=== PATIENT | male | born 1940 | race Caucasian/White ===

== ENCOUNTER 2021-01-04 08:01 | Outpatient (REF) | payer MEDICARE, SELFPAY ==
[2021-01-04 10:29] LABS: MANUAL DIFF FLAG NO
[2021-01-04 10:39] LABS: Basophils Percent Auto 0.6 % (0-2); Eosinophils Absolute Auto 0.1 X10*3/uL (0.0-0.4); Eosinophils Percent Auto 1.6 % (0-4); Hematocrit 42.1 % (42-52); Hemoglobin 14.4 g/dl (14.0-18.0); Imm Gran Abs Auto 0.02 X10*3/uL (0.00-0.03); Imm Gran Pct Auto 0.3 % (0.0-0.4); Lymphocytes Absolute Auto 1.2 X10*3/uL (1.2-4.9); Lymphocytes Percent Auto 17.2 % (20-40); Mean Corpuscular HGB Conc 34.2 g/dl (31.0-36.0); Mean Corpuscular Hemoglobin 29.6 pg (27.0-33.0); Mean Corpuscular Volume 86.6 fL (80-98); Mean Platelet Volume 10.5 fL (9.4-12.4); Monocytes Absolute Auto 0.6 X10*3/uL (0.1-1.2); Monocytes Percent Auto 8.4 % (2-11); Neutrophils Absolute Auto 4.8 X10*3/uL (2.0-8.3); Neutrophils Percent Auto 71.9 % (45-73); Platelet Count 208 X10*3/uL (160-400); Red Blood Count 4.86 X10*6/uL (4.60-5.80); Red Cell Distribution Width 13.1 % (11.0-16.0); White Blood Count 6.7 X10*3/uL (4.8-10.8)
[2021-01-04 10:51] LABS: Glucose Urine UA NEG (NEG); Leukocyte Esterase Urine 1+ (NEG); Nitrite Urine NEG (NEG); PH 6.5 (5.0-8.0); UACC Culture Trigger YES; Urine Blood NEG (NEG); Urine Ketones NEG (NEG); Urine Protein NEG (NEG-TRACE)
[2021-01-04 10:52] LABS: Appearance Urine CLEAR; Color Urine YELLOW
[2021-01-04 11:01] LABS: Alanine Aminotransferase 22 U/L (0-40); Albumin Level 3.8 g/dL (3.5-5.0); Alkaline Phosphatase 84 U/L (39-117); Anion Gap 10 (12-20); Aspartate Amino Transferase 19 U/L (5-37); Bilirubin Total 1.2 mg/dL (0.0-1.0); Blood Urea Nitrogen 8 mg/dL (9-16); Carbon Dioxide 26 mmol/L (22-29); Chloride 109 mmol/L (96-108); Cholesterol 120 mg/dL; Estimated Glomerular Filt Rate > 60; Glucose Fasting 130 mg/dL (60-99); HDL Cholesterol 30 mg/dL; LDL Cholesterol Calculated 65 mg/dl; Potassium 3.8 mmol/L (3.3-5.1); Sodium 141 mmol/L (135-145); Total Protein 6.1 g/dL (6.5-8.0); Triglycerides 126 mg/dL
[2021-01-04 11:02] LABS: RBC Urine 0-2 /HPF (0); Squamous Epithelial Cell Urine TRACE /LPF
[2021-01-04 11:08] LABS: TSH reflex Free T4 1.12 uIU/mL (0.32-4.0)
== END 2021-01-04 08:02 | disposition home or self-care (01) ==
LOC: HO.10HDL 08:01
PROVIDERS: Visit Provider Internal Medicine
DX: I10 Essential (primary) hypertension (principal); N40.0 Benign prostatic hyperplasia without lower urinary tract symptoms; K21.9 Gastro-esophageal reflux disease without esophagitis; J30.9 Allergic rhinitis, unspecified; E78.00 Pure hypercholesterolemia, unspecified; I25.10 Atherosclerotic heart disease of native coronary artery without angina pectoris; E66.9 Obesity, unspecified
CPT/HCPCS: 36415; 80053; 80061; 81001; 84443; 85025; 87086

== ENCOUNTER 2021-04-05 08:13 | Outpatient (REF) | payer MEDICARE, SELFPAY ==
[2021-04-05 10:18] LABS: MANUAL DIFF FLAG NO
[2021-04-05 10:23] LABS: Basophils Percent Auto 0.5 % (0-2); Eosinophils Absolute Auto 0.1 X10*3/uL (0.0-0.4); Hemoglobin 14.2 g/dl (14.0-18.0); Imm Gran Abs Auto 0.04 X10*3/uL (0.00-0.03); Imm Gran Pct Auto 0.6 % (0.0-0.4); Lymphocytes Absolute Auto 1.1 X10*3/uL (1.2-4.9); Lymphocytes Percent Auto 17.3 % (20-40); Mean Corpuscular Hemoglobin 29.2 pg (27.0-33.0); Mean Corpuscular Volume 88.3 fL (80.0-98.0); Mean Platelet Volume 10.5 fL (9.4-12.4); Monocytes Absolute Auto 0.6 X10*3/uL (0.1-1.2); Neutrophils Absolute Auto 4.5 x10*3/uL (2.0-8.3); Neutrophils Percent Auto 70.6 % (45-73); Platelet Count 209 X10*3/uL (160-400); Red Blood Count 4.87 X10*6/uL (4.60-5.80); Red Cell Distribution Width 12.6 % (11.0-16.0); White Blood Count 6.4 X10*3/uL (4.8-10.8)
[2021-04-05 10:25] LABS: Appearance Urine CLEAR; Color Urine YELLOW; Glucose Urine UA NEG (NEG); Leukocyte Esterase Urine 2+ (NEG); Nitrite Urine NEG (NEG); Specific Gravity - Urine 1.025 (1.005-1.025); UACC Culture Trigger YES; Urine Blood NEG (NEG); Urine Ketones NEG (NEG); Urine Protein NEG (NEG-TRACE)
[2021-04-05 10:31] LABS: Estimated Average Glucose 140 mg/dL; Hemoglobin A1c % 6.5 %
[2021-04-05 10:35] LABS: RBC Urine 0 /HPF (0); Squamous Epithelial Cell Urine TRACE /LPF
[2021-04-05 10:36] LABS: Mucus Urine TRACE /LPF
[2021-04-05 10:46] LABS: Alanine Aminotransferase 25 U/L (0-40); Albumin Level 3.8 g/dL (3.5-5.0); Alkaline Phosphatase 82 U/L (39-117); Anion Gap 11 (12-20); Aspartate Amino Transferase 19 U/L (5-37); Blood Urea Nitrogen 15 mg/dL (9-16); Calcium 8.8 mg/dL (8.4-10.2); Carbon Dioxide 24 mmol/L (22-29); Chloride 110 mmol/L (96-108); Cholesterol 138 mg/dL; Estimated Glomerular Filt Rate > 60; Glucose Fasting 128 mg/dL (60-99); HDL Cholesterol 31 mg/dL; LDL Cholesterol Calculated 76 mg/dl; Potassium 3.9 mmol/L (3.3-5.1); Sodium 141 mmol/L (135-145); Total Protein 6.3 g/dL (6.5-8.0); Triglycerides 155 mg/dL
[2021-04-05 10:52] LABS: Creatinine Urine 147.21 mg/dL; Microalbum/Creatinine Ratio Ur 7.4 ug/mg cr
[2021-04-05 10:54] LABS: Vitamin D 25-OH Total 29.1 ng/mL (>30)
== END 2021-04-05 08:14 | disposition home or self-care (01) ==
LOC: HO.10HDL 08:13
PROVIDERS: Visit Provider Internal Medicine
DX: E55.9 Vitamin D deficiency, unspecified (principal); E11.9 Type 2 diabetes mellitus without complications; I10 Essential (primary) hypertension; E78.00 Pure hypercholesterolemia, unspecified
CPT/HCPCS: 36415; 80053; 80061; 81001; 82043; 82306; 83036; 85025; 87086

== ENCOUNTER 2021-04-16 09:29 | Outpatient (REF) | payer MEDICARE, SELFPAY ==
--- NOTE | ~2021-04-16 | XR_ITS ---
EXAMINATION: XR BILATERAL HIPS WITH AP PELVIS CLINICAL INFORMATION: Pain in right hip COMPARISON: None TECHNIQUE: AP and frog-leg lateral views of each hip and an AP view of the pelvis. FINDINGS: No fracture or dislocation, the aortic symphysis and sacroiliac joints are intact. Degenerative changes in the sacroiliac joints. There is mild to moderate cartilage space loss in both hips with some underlying subchondral sclerosis and marginal osteophyte formation. 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
== END 2021-04-16 09:30 | disposition home or self-care (01) ==
LOC: HO.XRAY 09:29
PROVIDERS: Visit Provider Internal Medicine
DX: M25.551 Pain in right hip (principal); M25.552 Pain in left hip
CPT/HCPCS: 73521

== ENCOUNTER 2021-06-06 08:08 | Outpatient (REF) | payer MEDICARE, SELFPAY ==
[2021-06-06 09:00] LABS: Cholesterol 145 mg/dL; HDL Cholesterol 31 mg/dL; LDL Cholesterol Calculated 82 mg/dl; Triglycerides 163 mg/dL
== END 2021-06-06 08:09 | disposition home or self-care (01) ==
LOC: HO.LAB 08:08
PROVIDERS: PCP Internal Medicine; Visit Provider Internal Medicine
DX: I73.9 Peripheral vascular disease, unspecified (principal); E78.5 Hyperlipidemia, unspecified
CPT/HCPCS: 36415; 80061

== ENCOUNTER 2021-07-05 07:44 | Outpatient (REF) | payer MEDICARE, SELFPAY ==
[2021-07-05 12:20] LABS: Estimated Average Glucose 151 mg/dL; Hemoglobin A1c % 6.9 %
[2021-07-05 12:31] LABS: Alanine Aminotransferase 17 U/L (0-40); Albumin Level 3.8 g/dL (3.5-5.0); Alkaline Phosphatase 86 U/L (39-117); Anion Gap 9 (12-20); Aspartate Amino Transferase 15 U/L (5-37); Blood Urea Nitrogen 14 mg/dL (9-16); Carbon Dioxide 28 mmol/L (22-29); Chloride 107 mmol/L (96-108); Cholesterol 130 mg/dL; Estimated Glomerular Filt Rate > 60; Glucose Fasting 131 mg/dL (60-99); HDL Cholesterol 31 mg/dL; LDL Cholesterol Calculated 70 mg/dl; Potassium 3.8 mmol/L (3.3-5.1); Sodium 140 mmol/L (135-145); Total Protein 6.3 g/dL (6.5-8.0); Triglycerides 149 mg/dL
[2021-07-05 12:42] LABS: Vitamin D 25-OH Total 25.9 ng/mL (>30)
== END 2021-07-05 07:45 | disposition home or self-care (01) ==
LOC: HO.10HDL 07:44
PROVIDERS: Visit Provider Internal Medicine
DX: E11.9 Type 2 diabetes mellitus without complications (principal); E55.9 Vitamin D deficiency, unspecified; E78.00 Pure hypercholesterolemia, unspecified
CPT/HCPCS: 36415; 80053; 80061; 82306; 83036

== ENCOUNTER 2021-11-08 07:51 | Outpatient (REF) | payer MEDICARE, SELFPAY ==
[2021-11-08 10:32] LABS: MANUAL DIFF FLAG NO
[2021-11-08 10:36] LABS: Basophils Percent Auto 0.6 % (0-2); Eosinophils Absolute Auto 0.1 X10*3/uL (0.0-0.4); Hematocrit 39.8 % (42.0-52.0); Hemoglobin 13.3 g/dl (14.0-18.0); Imm Gran Abs Auto 0.04 X10*3/uL (0.00-0.03); Imm Gran Pct Auto 0.6 % (0.0-0.4); Lymphocytes Absolute Auto 1.1 X10*3/uL (1.2-4.9); Lymphocytes Percent Auto 17.5 % (20-40); Mean Corpuscular HGB Conc 33.4 g/dl (31.0-36.0); Mean Corpuscular Hemoglobin 28.7 pg (27.0-33.0); Mean Platelet Volume 10.4 fL (9.4-12.4); Monocytes Absolute Auto 0.6 X10*3/uL (0.1-1.2); Monocytes Percent Auto 9.4 % (2-11); Neutrophils Absolute Auto 4.5 x10*3/uL (2.0-8.3); Neutrophils Percent Auto 69.9 % (45-73); Platelet Count 219 X10*3/uL (160-400); Red Blood Count 4.63 X10*6/uL (4.60-5.80); Red Cell Distribution Width 13.2 % (11.0-16.0); White Blood Count 6.4 X10*3/uL (4.8-10.8)
[2021-11-08 10:48] LABS: Appearance Urine HAZY; Color Urine YELLOW; Glucose Urine UA NEG (NEG); Leukocyte Esterase Urine 1+ (NEG); Nitrite Urine NEG (NEG); UACC Culture Trigger YES; Urine Blood NEG (NEG); Urine Ketones NEG (NEG); Urine Protein NEG (NEG-TRACE)
[2021-11-08 10:49] LABS: Alanine Aminotransferase 42 U/L (0-40); Albumin Level 3.8 g/dL (3.5-5.0); Alkaline Phosphatase 83 U/L (39-117); Anion Gap 11 (12-20); Aspartate Amino Transferase 28 U/L (5-37); Bilirubin Total 0.5 mg/dL (0.0-1.0); Blood Urea Nitrogen 11 mg/dL (9-16); Calcium 8.6 mg/dL (8.4-10.2); Carbon Dioxide 25 mmol/L (22-29); Chloride 108 mmol/L (96-108); Cholesterol 144 mg/dL; Estimated Glomerular Filt Rate > 60; Glucose Fasting 160 mg/dL (60-99); HDL Cholesterol 36 mg/dL; LDL Cholesterol Calculated 80 mg/dl; Sodium 140 mmol/L (135-145); Total Protein 6.2 g/dL (6.5-8.0); Triglycerides 143 mg/dL
[2021-11-08 11:04] LABS: Vitamin D 25-OH Total 26.5 ng/mL (>30)
[2021-11-08 11:08] LABS: Bacteria Urine TRACE /LPF; Squamous Epithelial Cell Urine TRACE /LPF
[2021-11-08 11:09] LABS: RBC Urine 0 /HPF (0); WBC Urine 0-2 /HPF (0-4)
[2021-11-08 11:20] LABS: Estimated Average Glucose 171 mg/dL; Hemoglobin A1c % 7.6 %
[2021-11-08 11:48] LABS: Creatinine Urine 140.67 mg/dL; Microalbum/Creatinine Ratio Ur 9.2 ug/mg cr
== END 2021-11-08 07:52 | disposition home or self-care (01) ==
LOC: HO.10HDL 07:51
PROVIDERS: Absent Provider Physician Assistant Medical; Visit Provider Internal Medicine
DX: I10 Essential (primary) hypertension (principal); E11.9 Type 2 diabetes mellitus without complications; E78.00 Pure hypercholesterolemia, unspecified; E55.9 Vitamin D deficiency, unspecified; I25.10 Atherosclerotic heart disease of native coronary artery without angina pectoris
CPT/HCPCS: 36415; 80053; 80061; 81001; 82043; 82306; 83036; 84443; 85025; 87086; 87147

== ENCOUNTER 2022-07-14 07:52 | Outpatient (REF) | payer MEDICARE, SELFPAY ==
[2022-07-14 10:43] LABS: MANUAL DIFF FLAG NO
[2022-07-14 10:56] LABS: Basophils Percent Auto 0.6 % (0-2); Eosinophils Absolute Auto 0.1 X10*3/uL (0.0-0.4); Eosinophils Percent Auto 1.7 % (0-4); Hematocrit 42.9 % (42.0-52.0); Hemoglobin 13.9 g/dl (14.0-18.0); Imm Gran Abs Auto 0.02 X10*3/uL (0.00-0.03); Imm Gran Pct Auto 0.3 % (0.0-0.4); Lymphocytes Percent Auto 15.4 % (20-40); Mean Corpuscular HGB Conc 32.4 g/dl (31.0-36.0); Mean Corpuscular Hemoglobin 27.3 pg (27.0-33.0); Mean Corpuscular Volume 84.1 fL (80.0-98.0); Mean Platelet Volume 10.8 fL (9.4-12.4); Monocytes Absolute Auto 0.6 X10*3/uL (0.1-1.2); Monocytes Percent Auto 8.8 % (2-11); Neutrophils Absolute Auto 4.8 x10*3/uL (2.0-8.3); Neutrophils Percent Auto 73.2 % (45-73); Platelet Count 225 X10*3/uL (160-400); Red Cell Distribution Width 13.2 % (11.0-16.0); White Blood Count 6.5 X10*3/uL (4.8-10.8)
[2022-07-14 11:19] LABS: Appearance Urine Clear; Color Urine Yellow; Glucose Urine UA Negative (Negative); Leukocyte Esterase Urine Small (1+) (Negative); Nitrite Urine Negative (Negative); PH 6.5 (5.0-9.0); UMIC TRIGGER UACC YES; Urine Blood Negative (Negative); Urine Ketones Negative (Negative); Urine Protein Negative (Neg-Trace)
[2022-07-14 11:20] LABS: Estimated Average Glucose 192 mg/dL; Hemoglobin A1c % 8.3 %
[2022-07-14 11:40] LABS: Bacteria Urine None Seen (None Seen); Hyaline Casts Urine 0-2 /LPF (0-2); RBC Urine 0-2 /HPF (0-2); Squamous Epithelial Cell Urine 0-2 /HPF (0-2); UACC Culture Trigger YES; WBC Urine 0-5 /HPF (0-5)
[2022-07-14 11:54] LABS: Alanine Aminotransferase 26 U/L (0-40); Albumin Level 3.8 g/dL (3.5-5.0); Alkaline Phosphatase 82 U/L (39-117); Anion Gap 9 (12-20); Aspartate Amino Transferase 19 U/L (5-37); Bilirubin Total 1.1 mg/dL (0.0-1.0); Blood Urea Nitrogen 9 mg/dL (9-16); Calcium 8.4 mg/dL (8.4-10.2); Carbon Dioxide 27 mmol/L (22-29); Chloride 111 mmol/L (96-108); Cholesterol 129 mg/dL; Estimated Glomerular Filt Rate > 60; Glucose Fasting 168 mg/dL (60-99); HDL Cholesterol 32 mg/dL; LDL Cholesterol Calculated 69 mg/dl; Sodium 143 mmol/L (135-145); Triglycerides 144 mg/dL
[2022-07-14 11:57] LABS: Prostate Specific Antigen 1.87 ng/mL (<0.05-4.0); TSH reflex Free T4 1.32 uIU/mL (0.32-4.0); Vitamin D 25-OH Total 20.6 ng/mL (>30)
[2022-07-14 12:46] LABS: Creatinine Urine 161.95 mg/dL; Microalbum/Creatinine Ratio Ur 14.8 ug/mg cr
== END 2022-07-14 07:53 | disposition home or self-care (01) ==
LOC: HO.10HDL 07:52
PROVIDERS: Visit Provider Internal Medicine
DX: Z00.00 Encounter for general adult medical examination without abnormal findings (principal); Z12.5 Encounter for screening for malignant neoplasm of prostate; E11.9 Type 2 diabetes mellitus without complications; E78.00 Pure hypercholesterolemia, unspecified; E55.9 Vitamin D deficiency, unspecified; N40.0 Benign prostatic hyperplasia without lower urinary tract symptoms; I10 Essential (primary) hypertension
CPT/HCPCS: 36415; 80053; 80061; 81001; 82043; 82306; 83036; 84153; 84443; 85025; 87086

== ENCOUNTER 2022-10-23 07:44 | Outpatient (REF) | payer MEDICARE, SELFPAY ==
[2022-10-23 10:38] LABS: MANUAL DIFF FLAG NO
[2022-10-23 10:52] LABS: Appearance Urine Clear; Color Urine Yellow; Glucose Urine UA Negative (Negative); Leukocyte Esterase Urine Small (1+) (Negative); Nitrite Urine Negative (Negative); UMIC TRIGGER UACC YES; Urine Blood Negative (Negative); Urine Ketones Negative (Negative); Urine Protein Negative (Neg-Trace)
[2022-10-23 11:06] LABS: Basophils Percent Auto 0.6 % (0-2); Eosinophils Absolute Auto 0.1 X10*3/uL (0.0-0.4); Eosinophils Percent Auto 1.9 % (0-4); Hematocrit 41.5 % (42.0-52.0); Hemoglobin 13.4 g/dl (14.0-18.0); Imm Gran Abs Auto 0.02 X10*3/uL (0.00-0.03); Imm Gran Pct Auto 0.3 % (0.0-0.4); Lymphocytes Absolute Auto 1.1 X10*3/uL (1.2-4.9); Lymphocytes Percent Auto 16.4 % (20-40); Mean Corpuscular HGB Conc 32.3 g/dl (31.0-36.0); Mean Corpuscular Volume 86.6 fL (80.0-98.0); Mean Platelet Volume 10.8 fL (9.4-12.4); Monocytes Absolute Auto 0.6 X10*3/uL (0.1-1.2); Monocytes Percent Auto 9.9 % (2-11); Neutrophils Absolute Auto 4.6 x10*3/uL (2.0-8.3); Neutrophils Percent Auto 70.9 % (45-73); Platelet Count 225 X10*3/uL (160-400); Red Blood Count 4.79 X10*6/uL (4.60-5.80); White Blood Count 6.5 X10*3/uL (4.8-10.8)
[2022-10-23 11:15] LABS: Creatinine Urine 137.64 mg/dL; Microalbum/Creatinine Ratio Ur 7.2 ug/mg cr
[2022-10-23 11:17] LABS: Estimated Average Glucose 128 mg/dL; Hemoglobin A1c % 6.1 %
[2022-10-23 11:21] LABS: Bacteria Urine None Seen (None Seen); Hyaline Casts Urine 0-2 /LPF (0-2); RBC Urine 0-2 /HPF (0-2); Squamous Epithelial Cell Urine 0-2 /HPF (0-2); UACC Culture Trigger YES; WBC Urine 0-5 /HPF (0-5)
[2022-10-23 11:35] LABS: Alanine Aminotransferase 16 U/L (0-40); Albumin Level 3.7 g/dL (3.5-5.0); Alkaline Phosphatase 75 U/L (39-117); Anion Gap 12 (12-20); Aspartate Amino Transferase 18 U/L (5-37); Bilirubin Total 1.3 mg/dL (0.0-1.0); Blood Urea Nitrogen 11 mg/dL (9-16); Calcium 9.4 mg/dL (8.4-10.2); Carbon Dioxide 25 mmol/L (22-29); Chloride 109 mmol/L (96-108); Cholesterol 116 mg/dL; Estimated Glomerular Filt Rate > 60; Glucose Fasting 109 mg/dL (60-99); HDL Cholesterol 30 mg/dL; LDL Cholesterol Calculated 63 mg/dl; Potassium 3.7 mmol/L (3.3-5.1); Sodium 142 mmol/L (135-145); Total Protein 6.4 g/dL (6.5-8.0); Triglycerides 116 mg/dL
[2022-10-23 11:42] LABS: TSH reflex Free T4 1.36 uIU/mL (0.32-4.0)
== END 2022-10-23 07:45 | disposition home or self-care (01) ==
LOC: HO.10HDL 07:44
PROVIDERS: Visit Provider Internal Medicine
DX: I10 Essential (primary) hypertension (principal); E11.9 Type 2 diabetes mellitus without complications; E78.00 Pure hypercholesterolemia, unspecified; E55.9 Vitamin D deficiency, unspecified; R30.0 Dysuria
CPT/HCPCS: 36415; 80053; 80061; 81001; 82043; 82306; 83036; 84443; 85025; 87086

== ENCOUNTER 2023-02-19 07:52 | Outpatient (REF) | payer MEDICARE, SELFPAY ==
[2023-02-19 10:44] LABS: MANUAL DIFF FLAG NO
[2023-02-19 10:55] LABS: Basophils Absolute Auto 0.1 X10*3/uL (0.0-0.2); Basophils Percent Auto 1.3 % (0-2); Eosinophils Absolute Auto 0.3 X10*3/uL (0.0-0.4); Eosinophils Percent Auto 4.2 % (0-4); Hematocrit 43.3 % (42.0-52.0); Hemoglobin 14.7 g/dl (14.0-18.0); Imm Gran Abs Auto 0.01 X10*3/uL (0.00-0.03); Imm Gran Pct Auto 0.2 % (0.0-0.4); Lymphocytes Absolute Auto 1.1 X10*3/uL (1.2-4.9); Lymphocytes Percent Auto 18.4 % (20-40); Mean Corpuscular HGB Conc 33.9 g/dl (31.0-36.0); Mean Corpuscular Hemoglobin 29.3 pg (27.0-33.0); Mean Corpuscular Volume 86.4 fL (80.0-98.0); Mean Platelet Volume 10.1 fL (9.4-12.4); Monocytes Absolute Auto 0.6 X10*3/uL (0.1-1.2); Monocytes Percent Auto 9.8 % (2-11); Neutrophils Absolute Auto 4.1 x10*3/uL (2.0-8.3); Neutrophils Percent Auto 66.1 % (45-73); Platelet Count 206 X10*3/uL (160-400); Red Blood Count 5.01 X10*6/uL (4.60-5.80); Red Cell Distribution Width 13.8 % (11.0-16.0); White Blood Count 6.2 X10*3/uL (4.8-10.8)
[2023-02-19 11:00] LABS: Estimated Average Glucose 131 mg/dL; Hemoglobin A1C 146.5465 umol/L; Hemoglobin A1c % 6.2 % (<6.0)
[2023-02-19 11:06] LABS: Appearance Urine Clear; Color Urine Yellow; Glucose Urine UA Negative (Negative); Leukocyte Esterase Urine Negative (Negative); Nitrite Urine Negative (Negative); Specific Gravity - Urine 1.015 (1.005-1.025); Urine Blood Negative (Negative); Urine Ketones Negative (Negative); Urine Protein Negative (Neg-Trace)
[2023-02-19 11:13] LABS: Alanine Aminotransferase 23 U/L (0-40); Albumin Level 3.9 g/dL (3.5-5.0); Alkaline Phosphatase 63 U/L (39-117); Anion Gap 11 (12-20); Aspartate Amino Transferase 20 U/L (5-37); Blood Urea Nitrogen 12 mg/dL (9-16); Calcium 9.3 mg/dL (8.4-10.2); Carbon Dioxide 25 mmol/L (22-29); Chloride 109 mmol/L (96-108); Cholesterol 132 mg/dL (<200); Estimated Glomerular Filt Rate > 60; Glucose Fasting 116 mg/dL (60-99); HDL Cholesterol 36 mg/dL (>40); LDL Cholesterol Calculated 71 mg/dL (<100); Sodium 141 mmol/L (135-145); Total Protein 6.5 g/dL (6.5-8.0); Triglycerides 126 mg/dL (<150)
[2023-02-19 11:22] LABS: TSH reflex Free T4 1.65 uIU/mL (0.32-4.0); Vitamin D 25-OH Total 32.6 ng/mL (>30)
[2023-02-19 13:33] LABS: Creatinine Urine 67.71 mg/dL; Microalbumin Urine < 5.0 mg/L
== END 2023-02-19 07:53 | disposition home or self-care (01) ==
LOC: HO.10HDL 07:52
PROVIDERS: Visit Provider Internal Medicine
DX: E55.9 Vitamin D deficiency, unspecified (principal); R30.0 Dysuria; E78.00 Pure hypercholesterolemia, unspecified; E11.9 Type 2 diabetes mellitus without complications; I10 Essential (primary) hypertension
CPT/HCPCS: 36415; 80053; 80061; 81003; 82043; 82306; 82570; 83036; 84443; 85025

== ENCOUNTER 2023-02-27 10:45 | Outpatient (AMB) | payer MEDICARE, SELFPAY ==
[2023-02-27 10:50] VITALS: BP 140/70; PULSE 68; RESP 16; O2SAT 97; BMI 31.6
--- NOTE | 2023-02-27 10:50 | MHC.PC.OV ---
Vital Signs 02/27/23 10:50 Height 5 ft 6 in Weight 195 lb 8 oz BMI 31.6 BP 140/70 H Blood Pressure Location Lt brachial Position Sitting Respiration 16 Pulse 68 Pulse Source Pulse Oximeter Pulse Oximetry (%) 97 Oxygen Delivery Method Room Air Intake Visit Reasons: DM, CAD, hyperlipidemia Intake Note: Patient is here to follow up on DM, CAD and HLD. Pt requesting colonoscopy order if needed. Accompanied by: Spouse Allergies No Known Allergies Allergy (Verified 02/27/23 11:01) Tobacco use date assessed: 10/28/22 Fall risk assessment: No Falls in past year Last assessed Fall Risk: 02/27/23 Dental Screening Dental Screen Date: 02/27/23 Did you have a dental visit in the last 12 months?: Yes Did you have a dental problem in the last 6 months where you did not have access to dental care?: No Was dental information given to patient?: Patient has dentist HPI DM, CAD, hyperlipidemia HPI Details Patient comes in today for his follow up visit States that he feels okay but he is not happy to find out today that he gained some weight since his last visit He denies any headaches or dizziness Denies any chest pains, no SOB No nausea/vomiting, no abdominal pain No change in bowel habits noted Had his follow up labs done last week - to discuss his results [facility] Medical History Type 2 diabetes mellitus with hyperglycemia Obesity (BMI 30-39.9) Benign prostatic hyperplasia Allergic rhinitis GERD without esophagitis Pure hypercholesterolemia Benign essential hypertension Coronary artery disease Surgical History S/P excision of lipoma History of heart artery stent (~01/19/19) Family History Other Family history non-contributory Social History Housing: House Alcohol intake: current Alcohol intake frequency: a few times a month Patient Tobacco Use Status: Former Tobacco user e-Cigarette/Vaping Use: Never Used Second Hand Smoke Exposure: Yes service: No Current occupational status: retired Cognitive needs: No Hearing needs: No Vision needs: Yes (glasses ) Questionnaire Thrive Questionnaire Date Thrive assessed: 10/28/22 WILBERT-7 AMB Questionnaire WILBERT-7 Date WILBERT - 7 assessed: 10/28/22 Source: Developed by Drs. Juanjo Franz, Christine Hernandez, Isacc Hartley and colleagues, with an educational mary from [employer]. Review of Systems Const Denies fatigue, Denies fever(s) and Denies headache(s) ENT Denies dysphagia, Denies dizziness, Denies otalgia, Denies headache(s), Denies odynophagia and Denies sore throat Card Denies chest pain, Denies palpitations and Denies dyspnea Resp Denies cough and Denies dyspnea GI Denies abdominal pain, Denies constipation, Denies dysphagia, Denies heartburn, Denies diarrhea, Denies nausea, Denies odynophagia and Denies vomiting Denies dysuria, Denies nocturia and Denies urinary frequency Musc Denies back pain Neuro Denies dizziness and Denies headache(s) Endo Denies fatigue and Denies palpitations Physical exam (Primary Care) Vital Signs: Last Vital Signs Pulse 68 02/27/23 10:50 Resp 16 02/27/23 10:50 BP 140/70 H 02/27/23 10:50 Pulse Ox 97 02/27/23 10:50 Oxygen Delivery Method Room Air 02/27/23 10:50 BMI result Body Mass Index 31.6 Tobacco/Smoking Status: Tobacco use Status Tobacco use date assessed 10/28/22 02/27/23 10:50 Patient Tobacco Use Status Former Tobacco user 02/27/23 10:50 e-Cigarette/Vaping Use Never Used 02/27/23 10:50 Thrive Assessment: Date of Thrive Assessment Date Thrive assessed 10/28/22 02/27/23 10:50 Const General: no acute distress and alert HENMT Ears: TM's normal bilaterally and EAC's normal Throat: Yes posterior oropharynx normal and Yes tonsils normal (no TP congestion) Neck Neck: Yes no lymphadenopathy and Yes supple Resp Auscultation: clear to auscultation bilaterally, no rales and no wheezes Cardio Rate: regular rate Rhythm: regular rhythm Heart sounds: no murmurs GI Palpation (GI): Soft to palpation and nontender Auscultation: normal bowel sounds General: Yes no CVA tenderness Back/Spine/Pelvis Back: no CVA tenderness Extrem General: Yes no clubbing, cyanosis or edema Results Reviewed Results Reviewed: Laboratory Tests 02/19/23 08:00 WBC 6.2 Hgb 14.7 Hct 43.3 Plt Count 206 Sodium 141 Potassium 4.0 Creatinine 0.75 Estimated GFR > 60 Fasting Glucose 116 H Hemoglobin A1c % 6.2 H Calcium 9.3 AST 20 ALT 23 Triglycerides 126 Cholesterol 132 LDL Cholesterol, Calc 71 HDL Cholesterol 36 L 25-OH Vitamin D Total 32.6 TSH 1.65 Ur Specific [place] 1.015 Urine Protein Negative Urine Glucose (UA) Negative Urine Blood Negative Microalb/Creat Ratio TNP Assessment and Plan Assessment & Plan (1) Coronary artery disease: Comment: S/P PCI of LAD at [facility] in 2019 Code(s): I25.10 - Atherosclerotic heart disease of [place] coronary artery without angina pectoris Qualifiers: Coronary Disease-Associated Artery/Lesion type: [place] artery [place] vs. transplanted heart: [place] heart Associated angina: without angina Qualified Code(s): I25.10 - Atherosclerotic heart disease of [place] coronary artery without angina pectoris Plan: Continue Ticagrelor 90 mg BID, Aspirin 81 mg QD and Metoprolol 50 mg 1.5 tablets (75 mg) BID States that [facility] and activities at least twice a week Patient has been doing well and remains asymptomatic from a cardiac standpoint Follow up with cardiology as scheduled (2) Pure hypercholesterolemia: Code(s): E78.00 - Pure hypercholesterolemia, unspecified Plan: Results of his labs done last week reviewed and discussed with patient - advised that his numbers are all still very good but his LDL and total cholesterol have increased slightly from previous Reinforced low cholesterol diet; states that he is aware that he has to tighten his control a little bit better Continue Atorvastatin 10 mg QD Will recheck his labs and fasting lipids in 4 months for follow up (3) Benign essential hypertension: Code(s): I10 - Essential (primary) hypertension Plan: Reinforced low sodium diet - goal is systolic BP of at least 140 mm or less Continue Amlodpine 5 mg QD and Metoprolol 50 mg 1.5 tablets (75 mg) BID (4) Type 2 diabetes mellitus with hyperglycemia: Code(s): E11.65 - Type 2 diabetes mellitus with hyperglycemia Qualifiers: Diabetes mellitus residential insulin use: without intermediate accountant use Qualified Code(s): E11.65 - Type 2 diabetes mellitus with hyperglycemia Plan: HgbA1c was at 6.2% on his labs done last week; was at 6.1% a few months ago - goal is HgbA1c of at least 7.0% or less Reinforced diabetic diet Continue Metformin ER 500 mg Q PM Will recheck his blood sugar and HgbA1c in 4 months for follow up (5) GERD without esophagitis: Code(s): K21.9 - Gastro-esophageal reflux disease without esophagitis Plan: Dietary restrictions reinforced Continue Omeprazole 20 mg QD (6) Allergic rhinitis: Code(s): J30.9 - Allergic rhinitis, unspecified Qualifiers: Allergic rhinitis trigger: unspecified Allergic rhinitis seasonality: unspecified Qualified Code(s): J30.9 - Allergic rhinitis, unspecified Plan: Continue Fluticasone 50 mcg nasal spray QD PRN and Loratadine 10 mg QD PRN (7) Bilateral hip pain: Code(s): M25.551 - Pain in right hip; M25.552 - Pain in left hip Plan: X-rays of both hips done back in April 2021 revealed (+) mild to moderate degenerative changes in both hips Will consider referring to Orthopedics if his hips continue to bother him - states that his hip pains have improved somewhat and do not seem to be bothering him as much lately (8) Benign prostatic hyperplasia: Code(s): N40.0 - Benign prostatic hyperplasia without lower urinary tract symptoms Qualifiers: Lower urinary tract symptom presence: symptoms present Lower urinary tract symptom detail: urinary frequency Qualified Code(s): N40.1 - Benign prostatic hyperplasia with lower urinary tract symptoms; R35.0 - Frequency of micturition Plan: Continue Alfuzosin ER 10 mg QD Follow up with Urology as scheduled (9) Obesity (BMI 30-39.9): Code(s): E66.9 - Obesity, unspecified Plan: Reinforced diet/exercise as tolerated/lose weight - has gained a few pounds since his last visit Plan Follow up in 4 months Orders: Orders Complete Blood Count Auto Diff 4 Months I10 - Essential (primary) hypertension Comprehensive [place]. Panel Fast 4 Months E78.00 - Pure hypercholesterolemia, unspecified Lipid Panel 4 Months E78.00 - Pure hypercholesterolemia, unspecified Hemoglobin A1c 4 Months E11.9 - Type 2 diabetes mellitus without complications Microalbumin, Random (w Creat) 4 Months E11.9 - Type 2 diabetes mellitus without complications TSH reflex Free T4 4 Months E78.00 - Pure hypercholesterolemia, unspecified UA CC w/rflx Micro + Cult 4 Months R30.0 - Dysuria Vitamin D 25-OH Total 4 Months E55.9 - Vitamin D deficiency, unspecified Coding Level of Care Code Est Pt Level 4 (64949) Diagnoses Coronary artery disease involving [place] coronary artery of [place] heart without angina pectoris I25.10 Coronary Disease-Associated Artery/Lesion type: [place] artery [place] vs. transplanted heart: [place] heart Associated angina: without angina Pure hypercholesterolemia E78.00 Benign essential hypertension I10 Type 2 diabetes mellitus with hyperglycemia, without long-term current use of insulin E11.65 Diabetes mellitus intermediate accountant insulin use: without residential use GERD without esophagitis K21.9 Allergic rhinitis, unspecified seasonality, unspecified trigger J30.9 Allergic rhinitis trigger: unspecified Allergic rhinitis seasonality: unspecified Bilateral hip pain M25.551; M25.552 Benign prostatic hyperplasia with urinary frequency N40.1; R35.0 Lower urinary tract symptom presence: symptoms present Lower urinary tract symptom detail: urinary frequency Obesity (BMI 30-39.9) E66.9
== END 2023-02-27 11:42 | disposition home or self-care (01) ==
PROVIDERS: PCP Internal Medicine; Visit Provider Internal Medicine
DX: I25.10 Atherosclerotic heart disease of native coronary artery without angina pectoris (principal); E11.65 Type 2 diabetes mellitus with hyperglycemia; E66.9 Obesity, unspecified; Z68.31 Body mass index [BMI] 31.0-31.9, adult; E78.00 Pure hypercholesterolemia, unspecified; I10 Essential (primary) hypertension; K21.9 Gastro-esophageal reflux disease without esophagitis; J30.9 Allergic rhinitis, unspecified; M25.551 Pain in right hip; M25.552 Pain in left hip; N40.1 Benign prostatic hyperplasia with lower urinary tract symptoms; R35.0 Frequency of micturition
CPT/HCPCS: 99214

== ENCOUNTER 2023-06-26 07:31 | Outpatient (REF) | payer MEDICARE, SELFPAY ==
[2023-06-26 10:31] LABS: MANUAL DIFF FLAG NO
[2023-06-26 10:45] LABS: Estimated Average Glucose 131 mg/dL; Hemoglobin A1c % 6.2 % (<6.0)
[2023-06-26 10:46] LABS: Appearance Urine Clear; Color Urine Yellow; Glucose Urine UA Negative (Negative); Leukocyte Esterase Urine Negative (Negative); Nitrite Urine Negative (Negative); Specific Gravity - Urine 1.015 (1.005-1.025); Urine Blood Negative (Negative); Urine Ketones Negative (Negative); Urine Protein Negative (Neg-Trace)
[2023-06-26 10:49] LABS: Basophils Absolute Auto 0.1 X10*3/uL (0.0-0.2); Eosinophils Absolute Auto 0.2 X10*3/uL (0.0-0.4); Eosinophils Percent Auto 2.1 % (0-4); Hematocrit 44.5 % (42.0-52.0); Hemoglobin 15.2 g/dl (14.0-18.0); Imm Gran Abs Auto 0.01 X10*3/uL (0.00-0.03); Imm Gran Pct Auto 0.1 % (0.0-0.4); Lymphocytes Percent Auto 14.4 % (20-40); Mean Corpuscular HGB Conc 34.2 g/dl (31.0-36.0); Mean Corpuscular Hemoglobin 29.9 pg (27.0-33.0); Mean Corpuscular Volume 87.4 fL (80.0-98.0); Mean Platelet Volume 10.3 fL (9.4-12.4); Monocytes Absolute Auto 0.6 X10*3/uL (0.1-1.2); Monocytes Percent Auto 8.3 % (2-11); Neutrophils Absolute Auto 5.2 x10*3/uL (2.0-8.3); Neutrophils Percent Auto 74.1 % (45-73); Platelet Count 205 X10*3/uL (160-400); Red Blood Count 5.09 X10*6/uL (4.60-5.80); Red Cell Distribution Width 12.7 % (11.0-16.0)
[2023-06-26 11:01] LABS: Alanine Aminotransferase 21 U/L (0-40); Albumin Level 3.8 g/dL (3.5-5.0); Alkaline Phosphatase 69 U/L (39-117); Anion Gap 11 (12-20); Aspartate Amino Transferase 18 U/L (5-37); Blood Urea Nitrogen 11 mg/dL (9-16); Calcium 8.9 mg/dL (8.4-10.2); Carbon Dioxide 25 mmol/L (22-29); Chloride 109 mmol/L (96-108); Cholesterol 139 mg/dL (<200); Estimated Glomerular Filt Rate > 60; Glucose Fasting 131 mg/dL (60-99); HDL Cholesterol 31 mg/dL (>40); LDL Cholesterol Calculated 76 mg/dL (<100); Sodium 141 mmol/L (135-145); Total Protein 6.6 g/dL (6.5-8.0); Triglycerides 162 mg/dL (<150)
[2023-06-26 11:10] LABS: TSH reflex Free T4 1.36 uIU/mL (0.32-4.0); Vitamin D 25-OH Total 37.1 ng/mL (>30)
[2023-06-26 11:12] LABS: Creatinine Urine 74.93 mg/dL; Microalbumin Urine < 5.0 mg/L
== END 2023-06-26 07:32 | disposition home or self-care (01) ==
LOC: HO.10HDL 07:31
PROVIDERS: Visit Provider Internal Medicine
DX: E11.9 Type 2 diabetes mellitus without complications (principal); E55.9 Vitamin D deficiency, unspecified; I10 Essential (primary) hypertension; R30.0 Dysuria; E78.00 Pure hypercholesterolemia, unspecified
CPT/HCPCS: 36415; 80053; 80061; 81003; 82043; 82306; 82570; 83036; 84443; 85025

== ENCOUNTER 2023-06-30 09:25 | Outpatient (AMB) | payer MEDICARE, SELFPAY ==
[2023-06-30 09:31] VITALS: BP 118/60; PULSE 77; O2SAT 97; BMI 31.8
--- NOTE | 2023-06-30 09:31 | MHC.PC.OV ---
Vital Signs 06/30/23 09:31 Height 5 ft 6 in Weight 197 lb BMI 31.8 BP 118/60 Blood Pressure Location Lt brachial Position Sitting Pulse 77 Pulse Source Pulse Oximeter Pulse Oximetry (%) 97 Oxygen Delivery Method Room Air Intake Visit Reasons: CAD, hyperlipidemia, HTN, DM Principal Product Manager: Not Required per policy Accompanied by: Self / Same As Patient Allergies No Known Allergies Allergy (Verified 06/30/23 09:57) Medication List - Last Reconciled 06/30/23 by Hiro Jaimes MD amlodipine 5 mg PO DAILY 90 days ammonium lactate 12% 1 appl topical BID PRN aspirin 81 mg PO DAILY atorvastatin 20 mg PO BEDTIME clopidogrel 75 mg PO DAILY clotrimazole-betamethasone 1-0.05 % 1 appl topical BID docusate sodium 100 mg PO BID fluticasone propionate 50 mcg/actuation 1 spray intranasal DAILY loratadine 10 mg PO DAILY PRN 90 days metformin ER 500 mg PO QPM 90 days metoprolol tartrate 75 mg (1.5 x 50 mg) PO DAILY 90 days pantoprazole 40 mg PO DAILY 90 days sennosides 17.2 mg PO DAILY PRN Tobacco use date assessed: 06/30/23 Fall risk assessment: No Falls in past year Last assessed Fall Risk: 06/30/23 Dental Screening Dental Screen Date: 06/30/23 Did you have a dental visit in the last 12 months?: Yes Did you have a dental problem in the last 6 months where you did not have access to dental care?: No Was dental information given to patient?: Patient has dentist HPI CAD, hyperlipidemia, HTN, DM HPI Details Patient comes in today for his follow up visit States that he feels okay He denies any headaches or dizziness Denies any chest pains, no SOB No nausea/vomiting, no abdominal pain No change in bowel habits noted Needs his Fluticasone nasal spray Rx refilled Had his follow up labs done a few days ago - to discuss his results [facility] Medical History Type 2 diabetes mellitus with hyperglycemia Obesity (BMI 30-39.9) Benign prostatic hyperplasia Allergic rhinitis GERD without esophagitis Pure hypercholesterolemia Benign essential hypertension Coronary artery disease Surgical History S/P excision of lipoma History of heart artery stent (~01/19/19) Family History Other Family history non-contributory Social History Housing: House Alcohol intake: current Alcohol intake frequency: a few times a month Patient Tobacco Use Status: Former Tobacco user e-Cigarette/Vaping Use: Never Used Second Hand Smoke Exposure: Yes service: No Current occupational status: retired Cognitive needs: No Hearing needs: No Vision needs: Yes (glasses ) Questionnaire PHQ-9 Over the last 2 weeks, how often have you been bothered by any of the following problems? 1. Little interest or pleasure in doing things: not at all 2. Feeling down, depressed, or hopeless: not at all 3. Trouble falling or staying asleep, or sleeping too much: not at all 4. Feeling tired or having little energy: not at all 5. Poor appetite or overeating: not at all 6. Feeling bad about yourself - or that you are a failure or have let yourself or your family down: not at all 7. Trouble concentrating on things, such as reading the newspaper or watching television: not at all 8. Moving or speaking so slowly that other people could have noticed. Or the opposite - being so fidgety or restless that you have been moving around a lot more than usual: not at all 9. Thoughts that you would be better off or of hurting yourself in some way: not at all Total score: 0 Depression Screening Interpretation: Negative Depression Screening Done: Yes [id number] - PHQ-9 Billing: Yes Source: Developed by Drs. Juanjo Franz, Christine Hernandez, Isacc Hartley and colleagues, with an educational mary from [employer]. Thrive Questionnaire Date Thrive assessed: 06/30/23 I am a: Patient What is your living situation today?: I have a steady place to live Within the past 12 months, did the food you bought not last and you didn't have the money to get more?: Never true Within the past 12 months, did you worry whether your food would run out before you got money to buy more?: Never true Do you have trouble paying for medicines?: No Do you have trouble getting transportation to medical appointments?: No Do you have trouble paying your heating and electricity bill?: No Do you have trouble taking care of your child, family member or friend?: No Do you have trouble with day-to-day activities such as bathing, preparing meals, shopping, managing finances, etc.?: No Are you currently unemployed and looking for a job?: No Are you interested in more education?: No Please select the resources that you would like help with: None Currently or been in a relationship where the following occur: no concerns reported THRIVE Score: 0 AUDIT C Alcohol Use Questionnaire (AUDIT-C) 1. How often do you have a drink containing alcohol?: Never Total Score: 0 Score Reviewed/Action Taken: Yes WILBERT-7 AMB Questionnaire WILBERT-7 Date WILBERT - 7 assessed: 06/30/23 Feeling nervous, anxious, or on edge: 0 = Not at all Not being able to stop or control worryin = Not at all Worrying too much about different things: 0 = Not at all Trouble relaxin = Not at all Being so restless that it is hard to sit still: 0 = Not at all Becoming easily annoyed or irritable: 0 = Not at all Feeling afraid as if something awful might happen: 0 = Not at all Total WILBERT-7 score (0-4 normal; 5-9 mild; 10-14 moderate; 15-21 severe): 0 Source: Developed by Drs. Juanjo Franz, Crhistine Hernandez, Isacc Hartley and colleagues, with an educational mary from [employer]. Review of Systems Const Denies chills, Denies fatigue, Denies fever(s) and Denies headache(s) ENT Denies dysphagia, Denies dizziness, Denies otalgia, Denies headache(s), Denies neck pain, Denies odynophagia and Denies sore throat Card Denies chest pain, Denies palpitations and Denies dyspnea Resp Denies cough and Denies dyspnea GI Denies abdominal pain, Denies constipation, Denies dysphagia, Denies heartburn, Denies diarrhea, Denies nausea, Denies odynophagia and Denies vomiting Denies dysuria, Denies nocturia and Denies urinary frequency Musc Denies back pain and Denies neck pain Skin/Breast Denies rash Neuro Denies dizziness and Denies headache(s) Endo Denies fatigue and Denies palpitations Physical exam (Primary Care) Vital Signs: Last Vital Signs Pulse 77 06/30/23 09:31 BP 118/60 06/30/23 09:31 Pulse Ox 97 06/30/23 09:31 Oxygen Delivery Method Room Air 06/30/23 09:31 BMI result Body Mass Index 31.8 Tobacco/Smoking Status: Tobacco use Status Tobacco use date assessed 06/30/23 06/30/23 09:36 Patient Tobacco Use Status Former Tobacco user 06/30/23 09:36 e-Cigarette/Vaping Use Never Used 06/30/23 09:36 PHQ-9: PHQ-9 Score PHQ-9: Total score 0 06/30/23 09:36 Depression Screening Interpretation: Negative Thrive Assessment: Date of Thrive Assessment Date Thrive assessed 06/30/23 06/30/23 09:36 Currently or been in a relationship where the following occur: no concerns reported Const General: no acute distress and alert HENMT Ears: TM's normal bilaterally and EAC's normal Throat: Yes posterior oropharynx normal and Yes tonsils normal (no TP congestion) Neck Neck: Yes no lymphadenopathy and Yes supple Thyroid: Thyroid normal Resp Auscultation: clear to auscultation bilaterally, no rales and no wheezes Cardio Rate: regular rate Rhythm: regular rhythm Heart sounds: no murmurs GI Palpation (GI): Soft to palpation and nontender Auscultation: normal bowel sounds General: Yes no CVA tenderness Back/Spine/Pelvis Back: no CVA tenderness Skin Rashes: no rashes Extrem General: Yes no clubbing, cyanosis or edema Results Reviewed Results Reviewed: Laboratory Tests 06/26/23 07:35 WBC 7.0 Hgb 15.2 Hct 44.5 Plt Count 205 Sodium 141 Potassium 4.0 Creatinine 0.81 Estimated GFR > 60 Fasting Glucose 131 H Hemoglobin A1c % 6.2 H Calcium 8.9 AST 18 ALT 21 Triglycerides 162 H Cholesterol 139 LDL Cholesterol, Calc 76 HDL Cholesterol 31 L 25-OH Vitamin D Total 37.1 TSH 1.36 Ur Specific [place] 1.015 Urine Protein Negative Urine Glucose (UA) Negative Urine Blood Negative Urine Nitrite Negative Ur Leukocyte Esterase Negative Assessment and Plan Assessment & Plan (1) Coronary artery disease: Comment: S/P PCI of LAD at [facility] in 2019 Code(s): I25.10 - Atherosclerotic heart disease of [place] coronary artery without angina pectoris Qualifiers: Coronary Disease-Associated Artery/Lesion type: [place] artery [place] vs. transplanted heart: [place] heart Associated angina: without angina Qualified Code(s): I25.10 - Atherosclerotic heart disease of [place] coronary artery without angina pectoris Plan: Continue Aspirin 81 mg QD and Metoprolol 50 mg 1.5 tablets (75 mg) BID States that he continues to go to his local [facility] for some exercises and activities at least twice a week Patient has been doing well and remains asymptomatic from a cardiac standpoint Follow up with cardiology as scheduled - was seeing Dr. Cali Mackenzie in [place] but has not seen him since his last visit in 2021 (2) Pure hypercholesterolemia: Code(s): E78.00 - Pure hypercholesterolemia, unspecified Plan: Results of his labs done a few days ago reviewed and discussed with patient Reinforced low cholesterol diet Continue Atorvastatin 10 mg QD Will recheck his labs and fasting lipids in 4 months for follow up (3) Benign essential hypertension: Code(s): I10 - Essential (primary) hypertension Plan: Reinforced low sodium diet - goal is systolic BP of at least 140 mm or less Continue Amlodipine 5 mg QD and Metoprolol 50 mg 1.5 tablets (75 mg) BID (4) Type 2 diabetes mellitus with hyperglycemia: Code(s): E11.65 - Type 2 diabetes mellitus with hyperglycemia Qualifiers: Diabetes mellitus long term acute care registered nurse insulin use: without chcf use Qualified Code(s): E11.65 - Type 2 diabetes mellitus with hyperglycemia Plan: HgbA1c remains unchanged from previous at 6.2% on his labs done a few days ago - goal is HgbA1c of at least 7.0% or less Reinforced diabetic diet - patient states that he has been watching his diet although his disagrees with this His states that she would sometimes find him trying to cheat on his diet in the kitchen and will continue to remind him about this Continue Metformin ER 500 mg Q PM Will recheck his blood sugar and HgbA1c in 4 months for follow up (5) GERD without esophagitis: Code(s): K21.9 - Gastro-esophageal reflux disease without esophagitis Plan: Dietary restrictions reinforced Continue Omeprazole 20 mg QD (6) Allergic rhinitis: Code(s): J30.9 - Allergic rhinitis, unspecified Qualifiers: Allergic rhinitis trigger: unspecified Allergic rhinitis seasonality: unspecified Qualified Code(s): J30.9 - Allergic rhinitis, unspecified Plan: Continue Fluticasone 50 mcg nasal spray QD PRN (Rx refilled) and Loratadine 10 mg QD PRN (7) Bilateral hip pain: Code(s): M25.551 - Pain in right hip; M25.552 - Pain in left hip Plan: Patient states that his hips have not been bothering him lately X-rays of both hips done back in April 2021 revealed (+) mild to moderate degenerative changes in both hips Will consider referring to Orthopedics if his hips continue to bother him (8) Benign prostatic hyperplasia: Code(s): N40.0 - Benign prostatic hyperplasia without lower urinary tract symptoms Qualifiers: Lower urinary tract symptom presence: symptoms present Lower urinary tract symptom detail: urinary frequency Qualified Code(s): N40.1 - Benign prostatic hyperplasia with lower urinary tract symptoms; R35.0 - Frequency of micturition Plan: Continue Alfuzosin ER 10 mg QD Follow up with Urology as scheduled (9) Obesity (BMI 30-39.9): Code(s): E66.9 - Obesity, unspecified Plan: Reinforced diet/exercise as tolerated/lose weight Plan Follow up in 4 months Orders: Orders Complete Blood Count Auto Diff 4 Months D64.9 - Anemia, unspecified Comprehensive [place]. Panel Fast 4 Months E78.00 - Pure hypercholesterolemia, unspecified Microalbumin, Random (w Creat) 4 Months E11.9 - Type 2 diabetes mellitus without complications TSH reflex Free T4 4 Months E78.00 - Pure hypercholesterolemia, unspecified Vitamin D 25-OH Total 4 Months E55.9 - Vitamin D deficiency, unspecified Hemoglobin A1c 4 Months E11.9 - Type 2 diabetes mellitus without complications Lipid Panel 4 Months E78.00 - Pure hypercholesterolemia, unspecified UA CC w/rflx Micro + Cult 4 Months R30.0 - Dysuria Medications: Refilled fluticasone propionate 50 mcg/actuation 1 spray intranasal DAILY 16 mL 3RF Coding Level of Care Code Est Pt Level 4 (37600) Diagnoses Coronary artery disease involving [place] coronary artery of [place] heart without angina pectoris I25.10 Coronary Disease-Associated Artery/Lesion type: [place] artery [place] vs. transplanted heart: [place] heart Associated angina: without angina Pure hypercholesterolemia E78.00 Benign essential hypertension I10 Type 2 diabetes mellitus with hyperglycemia, without long-term current use of insulin E11.65 Diabetes mellitus chcf insulin use: without chcf use GERD without esophagitis K21.9 Allergic rhinitis, unspecified seasonality, unspecified trigger J30.9 Allergic rhinitis trigger: unspecified Allergic rhinitis seasonality: unspecified Bilateral hip pain M25.551; M25.552 Benign prostatic hyperplasia with urinary frequency N40.1; R35.0 Lower urinary tract symptom presence: symptoms present Lower urinary tract symptom detail: urinary frequency Obesity (BMI 30-39.9) E66.9
== END 2023-06-30 10:10 | disposition home or self-care (01) ==
PROVIDERS: PCP Internal Medicine; Visit Provider Internal Medicine
DX: E11.65 Type 2 diabetes mellitus with hyperglycemia (principal); E66.9 Obesity, unspecified; I25.10 Atherosclerotic heart disease of native coronary artery without angina pectoris; Z68.31 Body mass index [BMI] 31.0-31.9, adult; E78.00 Pure hypercholesterolemia, unspecified; I10 Essential (primary) hypertension; K21.9 Gastro-esophageal reflux disease without esophagitis; J30.9 Allergic rhinitis, unspecified; M25.551 Pain in right hip; M25.552 Pain in left hip; N40.1 Benign prostatic hyperplasia with lower urinary tract symptoms; R35.0 Frequency of micturition
CPT/HCPCS: 99214

== ENCOUNTER 2023-10-26 07:23 | Outpatient (REF) | payer MEDICARE, SELFPAY ==
[2023-10-26 11:07] LABS: Appearance Urine Clear; Color Urine Yellow; Glucose Urine UA Negative (Negative); Leukocyte Esterase Urine Moderate (2+) (Negative); MANUAL DIFF FLAG NO; Nitrite Urine Negative (Negative); UMIC TRIGGER UACC YES; Urine Blood Negative (Negative); Urine Ketones Negative (Negative); Urine Protein Negative (Neg-Trace)
[2023-10-26 11:10] LABS: Basophils Absolute Auto 0.1 X10*3/uL (0.0-0.2); Basophils Percent Auto 0.9 % (0-2); Eosinophils Absolute Auto 0.2 X10*3/uL (0.0-0.4); Eosinophils Percent Auto 2.3 % (0-4); Hematocrit 44.2 % (42.0-52.0); Hemoglobin 14.9 g/dl (14.0-18.0); Imm Gran Abs Auto 0.02 X10*3/uL (0.00-0.03); Imm Gran Pct Auto 0.3 % (0.0-0.4); Lymphocytes Absolute Auto 1.1 X10*3/uL (1.2-4.9); Lymphocytes Percent Auto 16.7 % (20-40); Mean Corpuscular HGB Conc 33.7 g/dl (31.0-36.0); Mean Corpuscular Volume 89.1 fL (80.0-98.0); Monocytes Absolute Auto 0.6 X10*3/uL (0.1-1.2); Monocytes Percent Auto 9.3 % (2-11); Neutrophils Absolute Auto 4.6 x10*3/uL (2.0-8.3); Neutrophils Percent Auto 70.5 % (45-73); Platelet Count 209 X10*3/uL (160-400); Red Blood Count 4.96 X10*6/uL (4.60-5.80); Red Cell Distribution Width 12.7 % (11.0-16.0); White Blood Count 6.5 X10*3/uL (4.8-10.8)
[2023-10-26 11:17] LABS: Bacteria Urine None Seen (None Seen); Hyaline Casts Urine 0-2 /LPF (0-2); RBC Urine 0-2 /HPF (0-2); Squamous Epithelial Cell Urine 0-2 /HPF (0-2); WBC Urine 0-5 /HPF (0-5)
[2023-10-26 11:23] LABS: Estimated Average Glucose 151 mg/dL; Hemoglobin A1c % 6.9 % (<6.0)
[2023-10-26 11:28] LABS: Alanine Aminotransferase 32 U/L (0-40); Alkaline Phosphatase 82 U/L (39-117); Anion Gap 13 (12-20); Aspartate Amino Transferase 21 U/L (5-37); Blood Urea Nitrogen 14 mg/dL (9-16); Calcium 9.1 mg/dL (8.4-10.2); Carbon Dioxide 26 mmol/L (22-29); Chloride 107 mmol/L (96-108); Cholesterol 150 mg/dL (<200); Estimated Glomerular Filt Rate > 60; Glucose Fasting 140 mg/dL (60-99); HDL Cholesterol 36 mg/dL (>40); LDL Cholesterol Calculated 78 mg/dL (<100); Sodium 142 mmol/L (135-145); Total Protein 6.7 g/dL (6.5-8.0); Triglycerides 184 mg/dL (<150)
[2023-10-26 11:46] LABS: TSH reflex Free T4 1.73 uIU/mL (0.32-4.0); Vitamin D 25-OH Total 35.7 ng/mL (>30)
[2023-10-26 11:50] LABS: Creatinine Urine 124.71 mg/dL; Microalbum/Creatinine Ratio Ur 10.4 ug/mg cr (<30)
== END 2023-10-26 07:24 | disposition home or self-care (01) ==
LOC: HO.10HDL 07:23
PROVIDERS: Visit Provider Internal Medicine
DX: D64.9 Anemia, unspecified (principal); E78.00 Pure hypercholesterolemia, unspecified; E11.9 Type 2 diabetes mellitus without complications; E55.9 Vitamin D deficiency, unspecified
CPT/HCPCS: 36415; 80053; 80061; 81001; 82043; 82306; 82570; 83036; 84443; 85025

== ENCOUNTER 2023-10-28 09:46 | Outpatient (AMB) | payer MEDICARE, SELFPAY ==
--- NOTE | 2023-10-28 09:51 | MHC.PC.OV ---
Vital Signs 10/28/23 09:53 Height 5 ft 6 in Weight 197 lb 8 oz BMI 31.9 BP 100/64 Blood Pressure Location Rt brachial Position Sitting Pulse 78 Pulse Source Pulse Oximeter Pulse Oximetry (%) 94 Oxygen Delivery Method Room Air Intake Visit Reasons: CAD, HTN, hyperlipidemia, DM Intake Note: Patient is here to follow up on CAD, HTN, HLD, DM. Marketing Systems Analyst Required: Yes Marketing Systems Analyst Language: [place] Marketing Systems Analyst Name: Maricruz ([id number]) - [place] Information Interpreted: non-clinical & clinical Resource Economist: Present Accompanied by: Friend Allergies No Known Allergies Allergy (Verified 10/28/23 10:35) Medication List - Last Reconciled 10/28/23 by Hiro Jaimes MD amlodipine 5 mg PO DAILY 90 days ammonium lactate 12% 1 appl topical BID PRN aspirin 81 mg PO DAILY atorvastatin 20 mg PO BEDTIME clopidogrel 75 mg PO DAILY clotrimazole-betamethasone 1-0.05 % 1 appl topical BID docusate sodium 100 mg PO BID fluticasone propionate 50 mcg/actuation 1 spray intranasal DAILY loratadine 10 mg PO DAILY PRN 90 days metformin ER 500 mg PO QPM 90 days metoprolol tartrate 75 mg (1.5 x 50 mg) PO DAILY 90 days pantoprazole 40 mg PO DAILY 90 days sennosides 17.2 mg PO DAILY PRN Tobacco use date assessed: 10/28/23 Fall risk assessment: No Falls in past year Last assessed Fall Risk: 10/28/23 Dental Screening Dental Screen Date: 06/30/23 HPI CAD, HTN, hyperlipidemia, DM HPI Details Patient comes in today for his follow up visit States that he feels okay He denies any headaches or dizziness Denies any chest pains, no SOB No nausea/vomiting, no abdominal pain No change in bowel habits noted Notes that he's had some itching and rash over his head/scalp at times but there does not seem to be anything noticeable on his head today Adds that he recently noticed a small bump on his right lower leg that he states is not painful to touch; has also noticed some rash on his legs lately that comes and goes States that he needs several of his Rx refilled He had his follow up labs done a couple of days ago - to discuss his results COUNTS INCLUDE 234 BEDS AT [facility] Medical History (Updated 10/28/23 @ 12:07 by Hiro Jaimes MD) Primary osteoarthritis of both hips Type 2 diabetes mellitus with hyperglycemia Obesity (BMI 30-39.9) Benign prostatic hyperplasia Allergic rhinitis GERD without esophagitis Pure hypercholesterolemia Benign essential hypertension Coronary artery disease Surgical History S/P excision of lipoma History of heart artery stent (~01/19/19) Family History Other Family history non-contributory Social History Housing: House Alcohol intake: current Alcohol intake frequency: a few times a month Patient Tobacco Use Status: Former Tobacco user e-Cigarette/Vaping Use: Never Used Second Hand Smoke Exposure: Yes service: No Current occupational status: retired Cognitive needs: No Hearing needs: No Vision needs: Yes (glasses ) Questionnaire Thrive Questionnaire Date Thrive assessed: 06/30/23 WILBERT-7 AMB Questionnaire WILBERT-7 Date WILBERT - 7 assessed: 06/30/23 Source: Developed by Drs. Juanjo Franz, Christine Hernandez, Isacc Hartley and colleagues, with an educational mary from [employer]. Review of Systems Const Denies chills, Denies fatigue, Denies fever(s) and Denies headache(s) ENT Denies dysphagia, Denies dizziness, Denies otalgia, Denies headache(s), Denies neck pain, Denies odynophagia and Denies sore throat Card Denies chest pain, Denies palpitations and Denies dyspnea Resp Denies cough and Denies dyspnea GI Denies abdominal pain, Denies constipation, Denies dysphagia, Denies heartburn, Denies diarrhea, Denies nausea, Denies odynophagia and Denies vomiting Denies dysuria, Denies nocturia and Denies urinary frequency Musc Denies back pain and Denies neck pain Skin/Breast Reports lesions ((+) small non-tender nodule over the right lower leg) and Reports rash (on and off over his scalp as well as on his legs recently) Neuro Denies dizziness and Denies headache(s) Endo Denies fatigue and Denies palpitations Physical exam (Primary Care) Vital Signs: Last Vital Signs Pulse 78 10/28/23 09:53 BP 100/64 10/28/23 09:53 Pulse Ox 94 10/28/23 09:53 Oxygen Delivery Method Room Air 10/28/23 09:53 BMI result Body Mass Index 31.9 Tobacco/Smoking Status: Tobacco use Status Tobacco use date assessed 10/28/23 10/28/23 10:02 Patient Tobacco Use Status Former Tobacco user 10/28/23 10:02 e-Cigarette/Vaping Use Never Used 10/28/23 10:02 Thrive Assessment: Date of Thrive Assessment Date Thrive assessed 06/30/23 10/28/23 10:02 Const General: no acute distress and alert HENMT Ears: TM's normal bilaterally and EAC's normal Throat: Yes posterior oropharynx normal and Yes tonsils normal (no TP congestion) Neck Neck: Yes no lymphadenopathy and Yes supple Thyroid: Thyroid normal Resp Auscultation: clear to auscultation bilaterally, no rales and no wheezes Cardio Rate: regular rate Rhythm: regular rhythm Heart sounds: no murmurs GI Palpation (GI): Soft to palpation and nontender Auscultation: normal bowel sounds General: Yes no CVA tenderness Back/Spine/Pelvis Back: no CVA tenderness Skin Other: (+) non-tender nodular lesion over the anteromedial aspect of the right lower leg Rashes: no rashes (no rash noted over his scalp or his lower legs at present) Extrem General: Yes no clubbing, cyanosis or edema Results Reviewed Results Reviewed: Laboratory Tests 10/26/23 07:29 WBC 6.5 Hgb 14.9 Hct 44.2 Plt Count 209 Sodium 142 Potassium 4.0 Creatinine 0.79 Estimated GFR > 60 Fasting Glucose 140 H Hemoglobin A1c % 6.9 H Calcium 9.1 AST 21 ALT 32 Triglycerides 184 H Cholesterol 150 LDL Cholesterol, Calc 78 HDL Cholesterol 36 L 25-OH Vitamin D Total 35.7 TSH 1.73 Ur Specific [place] 1.020 Urine Protein Negative Urine Glucose (UA) Negative Urine Blood Negative Urine Nitrite Negative Ur Leukocyte Esterase Moderate (2+) H Microalb/Creat Ratio 10.4 Assessment and Plan Assessment & Plan (1) Coronary artery disease: Comment: S/P PCI of LAD at [facility] in 2019 Code(s): I25.10 - Atherosclerotic heart disease of [place] coronary artery without angina pectoris Qualifiers: Coronary Disease-Associated Artery/Lesion type: [place] artery [place] vs. transplanted heart: [place] heart Associated angina: without angina Qualified Code(s): I25.10 - Atherosclerotic heart disease of [place] coronary artery without angina pectoris Plan: Continue Aspirin 81 mg QD and Metoprolol 50 mg 1.5 tablets (75 mg) BID States that [facility] and activities at least twice a week Patient has been doing well and remains asymptomatic from a cardiac standpoint Patient was seeing Dr. Cali Mackenzie in [place] for his cardiology follow up in the past but has not seen him since 2021 States that he recently tried reaching out to his office and was advised that he is no longer with the practice Will refer him instead to [facility] and have him follow up here for his cardiac issues since he lives here in [place] - advised that this should make it a lot easier for him and he does not have to go down to [place] just to see cardiology - referral to [facility] done (2) Pure hypercholesterolemia: Code(s): E78.00 - Pure hypercholesterolemia, unspecified Plan: Results of his labs done a couple of days ago reviewed and discussed with patient Reinforced low cholesterol diet Continue Atorvastatin 10 mg QD Will recheck his labs and fasting lipids in 4 months for follow up (3) Benign essential hypertension: Code(s): I10 - Essential (primary) hypertension Plan: Reinforced low sodium diet - goal is systolic BP of at least 140 mm or less Continue Amlodipine 5 mg QD and Metoprolol 50 mg 1.5 tablets (75 mg) BID (4) Type 2 diabetes mellitus with hyperglycemia: Code(s): E11.65 - Type 2 diabetes mellitus with hyperglycemia Qualifiers: Diabetes mellitus jail insulin use: without long term care administrator use Qualified Code(s): E11.65 - Type 2 diabetes mellitus with hyperglycemia Plan: He is cautioned that his HgbA1c has increased to 6.9% on his labs done a couple of days ago (was at 6.2% previously a few months ago) - goal is HgbA1c of at least <7.0% but ideally <6.5% Reinforced diabetic diet - patient admits that he has been eating a lot of candies lately His adds that she would sometimes find him trying to cheat on his diet in the kitchen and she tries to continue to remind him about his diet, often unsuccessfully Continue Metformin ER 500 mg Q PM for now but have advised patient that we may have to increase his dose or start him on additional medications if his diabetes control continues to increase and get worse Will recheck his blood sugar and HgbA1c in 4 months for follow up (5) GERD without esophagitis: Code(s): K21.9 - Gastro-esophageal reflux disease without esophagitis Plan: Dietary restrictions reinforced Continue Omeprazole 20 mg QD (6) Allergic rhinitis: Code(s): J30.9 - Allergic rhinitis, unspecified Qualifiers: Allergic rhinitis trigger: unspecified Allergic rhinitis seasonality: unspecified Qualified Code(s): J30.9 - Allergic rhinitis, unspecified Plan: Continue Fluticasone 50 mcg nasal spray QD PRN and Loratadine 10 mg QD PRN (7) Primary osteoarthritis of both hips: Code(s): M16.0 - Bilateral primary osteoarthritis of hip Plan: X-rays of both hips done back in April 2021 revealed (+) mild to moderate degenerative changes in both hips Patient states that his hips have not been bothering him lately Will consider referring him to Orthopedics if his hips start to bother him again (8) Benign prostatic hyperplasia: Code(s): N40.0 - Benign prostatic hyperplasia without lower urinary tract symptoms Qualifiers: Lower urinary tract symptom presence: symptoms present Lower urinary tract symptom detail: urinary frequency Qualified Code(s): N40.1 - Benign prostatic hyperplasia with lower urinary tract symptoms; R35.0 - Frequency of micturition Plan: Continue Alfuzosin ER 10 mg QD Follow up with [facility] as scheduled (9) Obesity (BMI 30-39.9): Code(s): E66.9 - Obesity, unspecified Plan: Reinforced diet/exercise as tolerated/lose weight Plan Follow up in 4 months Orders: Orders Hemoglobin A1c 4 Months E11.9 - Type 2 diabetes mellitus without complications Complete Blood Count Auto Diff 4 Months D64.9 - Anemia, unspecified Lipid Panel 4 Months E78.00 - Pure hypercholesterolemia, unspecified Microalbumin, Random (w Creat) 4 Months E11.9 - Type 2 diabetes mellitus without complications UA CC w/rflx Micro + Cult 4 Months R30.0 - Dysuria TSH reflex Free T4 4 Months E78.00 - Pure hypercholesterolemia, unspecified Vitamin D 25-OH Total 4 Months E55.9 - Vitamin D deficiency, unspecified Comprehensive [place]. Panel Fast 4 Months E78.00 - Pure hypercholesterolemia, unspecified Vitamin B12 and Folate 4 Months E53.8 - Deficiency of other specified B group vitamins Referrals Cardiology Referral E78.00 - Pure hypercholesterolemia, unspecified, I10 - Essential (primary) hypertension, I25.10 - Atherosclerotic heart disease of [place] coronary artery without angina pectoris Medications: New sennosides 17.2 mg (2 x 8.6 mg) PO DAILY PRN 60 tabs 5RF constipation Changed From clopidogrel 75 mg PO DAILY To clopidogrel 75 mg PO DAILY 90 days 90 tabs 3RF From atorvastatin 20 mg PO BEDTIME To atorvastatin 20 mg PO BEDTIME 90 days 90 tabs 3RF From docusate sodium 100 mg PO BID To docusate sodium 100 mg PO BID PRN 60 caps 5RF constipation Refilled ammonium lactate 12% 1 appl topical BID PRN 400 grams 0RF dry skin aspirin 81 mg PO DAILY 90 tabs 3RF loratadine 10 mg PO DAILY 90 days PRN 90 tabs 1RF allergy symptoms metformin ER 500 mg PO QPM 90 days 90 tabs 1RF clotrimazole-betamethasone 1-0.05 % 1 appl topical BID 45 grams 2RF pantoprazole cannot take Omeprazole as patient is on Clopidogrel 40 mg PO DAILY 90 days 90 tabs 1RF Coding Level of Care Code Est Pt Level 4 (30976) Complex EM visit Add On G2211 Diagnoses Coronary artery disease involving [place] coronary artery of [place] heart without angina pectoris I25.10 Coronary Disease-Associated Artery/Lesion type: [place] artery [place] vs. transplanted heart: [place] heart Associated angina: without angina Pure hypercholesterolemia E78.00 Benign essential hypertension I10 Type 2 diabetes mellitus with hyperglycemia, without long-term current use of insulin E11.65 Diabetes mellitus long term care administrator insulin use: without jail use GERD without esophagitis K21.9 Allergic rhinitis, unspecified seasonality, unspecified trigger J30.9 Allergic rhinitis trigger: unspecified Allergic rhinitis seasonality: unspecified Primary osteoarthritis of both hips M16.0 Benign prostatic hyperplasia with urinary frequency N40.1; R35.0 Lower urinary tract symptom presence: symptoms present Lower urinary tract symptom detail: urinary frequency Obesity (BMI 30-39.9) E66.9
[2023-10-28 09:53] VITALS: BP 100/64; PULSE 78; O2SAT 94; BMI 31.9
== END 2023-10-28 10:53 | disposition home or self-care (01) ==
PROVIDERS: PCP Internal Medicine; Visit Provider Internal Medicine
DX: I25.10 Atherosclerotic heart disease of native coronary artery without angina pectoris (principal); E11.65 Type 2 diabetes mellitus with hyperglycemia; E66.9 Obesity, unspecified; Z68.31 Body mass index [BMI] 31.0-31.9, adult; E78.00 Pure hypercholesterolemia, unspecified; I10 Essential (primary) hypertension; K21.9 Gastro-esophageal reflux disease without esophagitis; J30.9 Allergic rhinitis, unspecified; M16.0 Bilateral primary osteoarthritis of hip; N40.1 Benign prostatic hyperplasia with lower urinary tract symptoms; R35.0 Frequency of micturition
CPT/HCPCS: 99214; G2211

== ENCOUNTER 2024-01-01 07:44 | Outpatient (REF) | payer MEDICARE, SELFPAY ==
--- NOTE | ~2024-01-01 | CT_ITS ---
EXAMINATION: CT ABDOMEN AND PELVIS WITHOUT AND WITH CONTRAST CLINICAL INFORMATION: Microscopic hematuria. COMPARISON: None available. TECHNIQUE: Noncontrast CT of the abdomen and pelvis is performed followed by split bolus contrast-enhanced images using 85 mL Omnipaque 350 contrast. Postcontrast imaging is performed during the combined nephrogram and excretion phase. Sagittal and coronal reformatted images were obtained on the technologist's workstation for both the precontrast and postcontrast phases. This CT examination was performed using dose optimization techniques as appropriate, variously including the following: *Automated exposure control *Adjustment of mA and/or kV according to patient size (this includes techniques or standardized protocols for targeted exams where dose is matched to indication/reason for exam; i.e. extremities or head) *Use of iterative reconstruction technique DLP: 974 mGy-cm FINDINGS: LUNG BASES: Small hiatal hernia. LIVER, GALLBLADDER, AND BILIARY TREE: The liver is enlarged and decreased in attenuation. No focal hepatic lesion or biliary ductal dilatation is present. Gallstones. PANCREAS: No ductal dilatation. SPLEEN: Nonenlarged. ADRENAL GLANDS: No adrenal mass. KIDNEYS AND URETERS: There is asymmetric fullness of the left renal collecting system with subtle perinephric and periureteric stranding. No obstructing calculus is seen. Consider recently passed stone. BLADDER: Mild circumferential bladder wall thickening. GASTROINTESTINAL TRACT: Small and large bowel loops are normal caliber. No small bowel obstruction. Marked fecal retention in colon. ABDOMINAL WALL: No significant hernia is appreciated. LYMPH NODES: No bulky lymphadenopathy. VASCULAR: Normal caliber abdominal aorta. Severe atherosclerotic vascular calcification. Calcification at the origin of the right renal artery. There is a stent in the left common iliac artery. PELVIC VISCERA: Enlarged prostate gland. OSSEUS STRUCTURES: No destructive bone lesions. Possible fluid in the right iliopsoas bursa. CT/CT urogram IMPRESSION: The possibility of a recently passed left collecting system calculus due to the asymmetric fullness of the left renal collecting system with subtle perinephric and periureteric stranding. Enlarged prostate gland. Cholelithiasis. Hepatic steatosis and hepatomegaly. Constipation. Electronically signed by: Mitul Riggins MD 01/01/2024 01:09 PM EDT
[2024-01-01] MEDS: iohexoL 350 MG/ML 75 ML INFUS..BTL 85 ML IV (09:15)
[2024-01-06 10:44] LABS: Creatinine POC 0.9 mg/dL (0.5-1.4); GFR POC > 60
== END 2024-01-01 07:45 | disposition home or self-care (01) ==
LOC: HO.CT 07:44
PROVIDERS: PCP Internal Medicine; Visit Provider Internal Medicine
DX: R31.1 Benign essential microscopic hematuria (principal)
CPT/HCPCS: 74178; 82565; Q9967

== ENCOUNTER 2024-02-04 13:47 | Outpatient (AMB) | payer MEDICARE, SELFPAY ==
[2024-02-04 13:49] VITALS: BP 140/78; PULSE 65; BMI 32.0
--- NOTE | 2024-02-04 13:49 | MHC.OFFVIS ---
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, HTN, hyperlipidemia, DM Intake Note: New patient dx CAD, HTN, hyperlipidemia, and DM [employer] Le[employer] Agent Required: No Allergies No Known Allergies Allergy (Verified 10/28/23 10:35) Medication List - Last Reconciled 02/04/24 by David Garcia MD amlodipine 7.5 mg PO DAILY ammonium lactate 12% 1 appl topical BID PRN aspirin 81 mg PO DAILY atorvastatin 20 mg PO BEDTIME 90 days clopidogrel 75 mg PO DAILY 90 days clotrimazole-betamethasone 1-0.05 % 1 appl topical BID docusate sodium 100 mg PO BID PRN fluticasone propionate 50 mcg/actuation 1 spray intranasal DAILY loratadine 10 mg PO DAILY PRN 90 days metformin ER 500 mg PO QPM 90 days metoprolol tartrate 75 mg (1.5 x 50 mg) PO DAILY 90 days pantoprazole 40 mg PO DAILY 90 days sennosides 17.2 mg (2 x 8.6 mg) PO DAILY PRN HPI Comments Details: Thank you for referring Mani in cardiology consultation today for management of his coronary artery disease. He is a pleasant 83-year-old male referred here as he has prior CAD and stenting of the LAD in 2019 for exertional angina. Since then he has not had any recurrent anginal symptoms. Does not remember having stent in his left iliac artery which is reported on the abdominal pelvic CTA. He said he does walk but walks in the neighborhood for short distance and does not have any clear chest pain or shortness of breath but exercise capacity is limited. Denies any orthopnea, PND, leg edema. Denies any clear claudication symptoms but complains of constant numbness in his right lower extremity. Denies any prolonged palpitation, irregular heartbeat, lightheadedness, syncope. Currently takes all his medications. LDL is not well optimized at 78. Currently on dual antiplatelet therapy for unclear reason, unsure as to the timing of the stenting in his lower extremity. He said he has been recently diagnose with high sugars being managed through your office. Blood pressures been generally well controlled. [facility] Medical History PVD (peripheral vascular disease) Primary osteoarthritis of both hips Type 2 diabetes mellitus with hyperglycemia Obesity (BMI 30-39.9) Benign prostatic hyperplasia Allergic rhinitis GERD without esophagitis Pure hypercholesterolemia Benign essential hypertension Coronary artery disease Surgical History S/P excision of lipoma History of heart artery stent (~01/19/19) Family History Other Family history non-contributory Social History (Reviewed 02/04/24 @ 14: by David Garcia MD) Housing: House Alcohol intake: current Alcohol intake frequency: a few times a month Patient Tobacco Use Status: Former Tobacco user e-Cigarette/Vaping Use: Never Used Second Hand Smoke Exposure: Yes service: No Current occupational status: retired Cognitive needs: No Hearing needs: No Vision needs: Yes (glasses ) Review of Systems Const Denies chills, Denies daytime sleepiness, Denies fatigue, Denies fever(s), Denies frequent falls, Denies poor appetite, Denies snoring, Denies stops breathing during sleep, Denies weakness, Denies weight gain and Denies weight loss Eyes Denies loss of vision ENT Denies dizziness and Denies hearing loss Card Denies chest pain, Denies claudication, Denies leg edema, Denies lightheadedness, Denies palpitations, Denies dyspnea, Denies dyspnea on exertion and Denies orthopnea Resp Denies cough, Denies excessive phlegm production, Denies dyspnea, Denies dyspnea on exertion, Denies snoring and Denies wheezing GI Denies abdominal pain, Denies hematochezia, Denies change in bowel habits, Denies nausea and Denies vomiting Denies dysuria and Denies urinary frequency Musc Denies arthralgias, Denies muscle weakness, Denies numbness and Denies other (frequent falls) Skin/Breast Denies nail changes and Denies rash Neuro Denies Abnormal speech present, Denies dizziness, Denies frequent falls, Denies loss of vision, Denies memory loss, Denies numbness and Denies weakness Psych Denies depression and Denies memory loss Endo Denies fatigue and Denies palpitations Cruz/Lymph Reports easy bruising and Reports other (anemia) Aller/Immun Denies wheezing Physical Exam Vital Signs: Last Vital Signs Pulse 65 02/04/24 13:49 BP 140/78 H 02/04/24 13:49 BMI result Body Mass Index 32.0 Const General: cooperative, comfortable, no acute distress, well developed, alert and awake Nutritional Appearance: average body habitus and well nourished Orientation/consciousness: patient oriented x3 Limitations: no limitations HEENT Head: Yes normocephalic and Yes atraumatic Neck Neck: Yes trachea midline, Yes supple and Yes no JVD Carotids: no bruits Resp Effort & Inspection: normal respiratory effort Auscultation: clear to auscultation bilaterally Cardio Jugular venous distension: no JVD Palpation: normal PMI Rate: regular rate Rhythm: regular rhythm Heart sounds: S1 normal heart sound present, S2 normal heart sound present, no click, no gallops, no murmurs and no rubs GI Auscultation: normal bowel sounds Skin General skin exam: no rashes or lesions noted and ecchymosis Neuro General: patient oriented x3 and no focal motor deficits Speech: No Abnormal speech present Extrem General: Yes no clubbing, cyanosis or edema Psych Appearance: grossly normal Office Procedures EKG Details: EKG shows normal sinus rhythm with normal EKG [id number], Complete Assessment & Plan Assessment & Plan (1) Coronary artery disease: Comment: S/P PCI of LAD at [facility] in 2019 Code(s): I25.10 - Atherosclerotic heart disease of [place] coronary artery without angina pectoris Category: Medical Qualifiers: Associated angina: without angina Coronary Disease-Associated Artery/Lesion type: [place] artery [place] vs. transplanted heart: [place] heart Qualified Code(s): I25.10 - Atherosclerotic heart disease of [place] coronary artery without angina pectoris Plan: CAD with stenting of the LAD 5 years ago with symptoms exertional angina. Currently he is not having any symptoms angina but he is exercise capacity is limited since then. I would suggest him to undergo vasodilating myocardial perfusion imaging to evaluate for progressive atherosclerosis and stent patency. This will be scheduled in near future. Continue aggressive medical therapy. Currently on aspirin therapy as well as Plavix therapy. Need to look into that to see if he will benefit from only single antiplatelet agent to reduce bleeding risk. LDL is not well optimized in his suggested to increase his atorvastatin to 40 mg daily. Follow-up lipid panel in 3 months time. Will also obtain echocardiogram to evaluate LV systolic and diastolic function. Continue aggressive diabetes management through your office with goal hemoglobin A1c less than 7%. Continue aggressive blood pressure control. Advised to call me with any new symptoms. (2) Benign essential hypertension: Code(s): I10 - Essential (primary) hypertension Category: Medical Plan: Hypertension which is currently well optimized advised to monitor blood pressure at home maintain a log. Low-salt diet was discussed. Goal blood pressure less than 130/84. Importance of good blood pressure control was discussed. Continue current therapy for the same. Will follow up in the clinic in 1 year's time, sooner p.r.n.. Thank you for allowing me to partake in his care Orders: Orders CA lexiscan stress w sully Today David Garcia MD I25.10 - Atherosclerotic heart disease of [place] coronary artery without angina pectoris CA echo transthoracic complete Today David Garcia MD I25.10 - Atherosclerotic heart disease of [place] coronary artery without angina pectoris Lipid Panel 3 Months David Garcia MD I25.10 - Atherosclerotic heart disease of [place] coronary artery without angina pectoris Medications: New atorvastatin 40 mg PO DAILY 90 tabs 1RF David Garcia MD I25.10 - Atherosclerotic heart disease of [place] coronary artery without angina pectoris Changed From amlodipine 5 mg PO DAILY 90 days 90 tabs 1RF To amlodipine 7.5 mg PO DAILY Hiro Jaimes MD Discontinued atorvastatin Discontinued Reason: Doctor's Order 20 mg PO BEDTIME 90 days 90 tabs 3RF Coding Level of Care Code New Pt Level 4 (37203) Diagnoses Coronary artery disease involving [place] coronary artery of [place] heart without angina pectoris I25.10 Associated angina: without angina Coronary Disease-Associated Artery/Lesion type: [place] artery [place] vs. transplanted heart: [place] heart Benign essential hypertension I10 CPT Codes EKG - CPT: 70424-[id number], Complete ([id number])
== END 2024-02-04 14:22 | disposition home or self-care (01) ==
PROVIDERS: PCP Internal Medicine; Visit Provider Internal Medicine Cardiovascular Disease
DX: I25.10 Atherosclerotic heart disease of native coronary artery without angina pectoris (principal); I10 Essential (primary) hypertension
CPT/HCPCS: 93010; 99204

== ENCOUNTER → 2024-02-04 13:47 | Outpatient (BNVA) | payer MEDICARE, SELFPAY | PROVIDERS: PCP Internal Medicine; Visit Provider Internal Medicine Cardiovascular Disease | DX: I25.10 Atherosclerotic heart disease of native coronary artery without angina pectoris (principal); I10 Essential (primary) hypertension | CPT/HCPCS: 93005; 99202 ==

== ENCOUNTER 2024-02-29 07:52 | Outpatient (REF) | payer MEDICARE, SELFPAY ==
[2024-02-29 10:51] LABS: MANUAL DIFF FLAG NO
[2024-02-29 11:06] LABS: Basophils Absolute Auto 0.1 X10*3/uL (0.0-0.2); Eosinophils Absolute Auto 0.3 X10*3/uL (0.0-0.4); Hematocrit 43.7 % (42.0-52.0); Hemoglobin 14.8 g/dl (14.0-18.0); Imm Gran Abs Auto 0.01 X10*3/uL (0.00-0.03); Imm Gran Pct Auto 0.2 % (0.0-0.4); Lymphocytes Absolute Auto 1.3 X10*3/uL (1.2-4.9); Lymphocytes Percent Auto 19.9 % (20-40); Mean Corpuscular HGB Conc 33.9 g/dl (31.0-36.0); Mean Corpuscular Volume 88.6 fL (80.0-98.0); Mean Platelet Volume 10.1 fL (9.4-12.4); Monocytes Absolute Auto 0.6 X10*3/uL (0.1-1.2); Monocytes Percent Auto 8.7 % (2-11); Neutrophils Absolute Auto 4.2 x10*3/uL (2.0-8.3); Neutrophils Percent Auto 66.2 % (45-73); Platelet Count 241 X10*3/uL (160-400); Red Blood Count 4.93 X10*6/uL (4.60-5.80); Red Cell Distribution Width 12.7 % (11.0-16.0); White Blood Count 6.3 X10*3/uL (4.8-10.8)
[2024-02-29 11:08] LABS: Estimated Average Glucose 151 mg/dL; Hemoglobin A1C 198.7953 umol/L; Hemoglobin A1c % 6.9 % (<6.0); Total Hemoglobin (HGBA1C) 3841.4767 umol/L
[2024-02-29 11:57] LABS: Alanine Aminotransferase 32 U/L (0-40); Albumin Level 3.8 g/dL (3.5-5.0); Alkaline Phosphatase 79 U/L (39-117); Anion Gap 8 (12-20); Aspartate Amino Transferase 30 U/L (5-37); Bilirubin Total 0.8 mg/dL (0.0-1.0); Blood Urea Nitrogen 12 mg/dL (9-16); Carbon Dioxide 27 mmol/L (22-29); Chloride 110 mmol/L (96-108); Cholesterol 131 mg/dL (<200); Estimated Glomerular Filt Rate > 60; Glucose Fasting 124 mg/dL (60-99); HDL Cholesterol 32 mg/dL (>40); LDL Cholesterol Calculated 69 mg/dL (<100); Sodium 141 mmol/L (135-145); Total Protein 6.5 g/dL (6.5-8.0); Triglycerides 153 mg/dL (<150)
[2024-02-29 12:23] LABS: TSH reflex Free T4 1.41 uIU/mL (0.32-4.0); Vitamin D 25-OH Total 48.8 ng/mL (>30)
[2024-02-29 12:30] LABS: Folate 15.3 ng/mL (> or = 4.0); Vitamin B12 628 pg/mL (200-900)
== END 2024-02-29 07:53 | disposition home or self-care (01) ==
LOC: HO.10HDL 07:52
PROVIDERS: Visit Provider Internal Medicine
DX: E78.00 Pure hypercholesterolemia, unspecified (principal); E53.8 Deficiency of other specified B group vitamins; D64.9 Anemia, unspecified; E55.9 Vitamin D deficiency, unspecified; E11.9 Type 2 diabetes mellitus without complications
CPT/HCPCS: 36415; 80053; 80061; 82306; 82607; 82746; 83036; 84443; 85025

== ENCOUNTER 2024-03-03 10:44 | Outpatient (AMB) | payer MEDICARE, SELFPAY ==
[2024-03-03 10:49] VITALS: BP 118/58; PULSE 71; O2SAT 93; BMI 31.7
--- NOTE | 2024-03-03 10:49 | A.OFFPC_ITS ---
Vital Signs 03/03/24 10:49 Height 5 ft 6 in Weight 196 lb 8 oz BMI 31.7 BP 118/58 L Blood Pressure Location Lt brachial Position Sitting Pulse 71 Pulse Source Pulse Oximeter Pulse Oximetry (%) 93 Oxygen Delivery Method Room Air Intake Visit Reasons: [facility] f/u [place] Gl[place] Required: No Accompanied by: Self / Same As Patient Allergies No Known Allergies Allergy (Verified 03/03/24 11:30) Medication List - Last Reconciled 03/03/24 by Hiro Jaimes MD amlodipine 7.5 mg PO DAILY ammonium lactate 12% 1 appl topical BID PRN aspirin 81 mg PO DAILY atorvastatin 40 mg PO DAILY clopidogrel 75 mg PO DAILY 90 days clotrimazole-betamethasone 1-0.05 % 1 appl topical BID docusate sodium 100 mg PO BID PRN fluticasone propionate 50 mcg/actuation 1 spray intranasal DAILY loratadine 10 mg PO DAILY PRN 90 days metformin ER 500 mg PO QPM 90 days metoprolol tartrate 75 mg (1.5 x 50 mg) PO DAILY 90 days pantoprazole 40 mg PO DAILY 90 days sennosides 17.2 mg (2 x 8.6 mg) PO DAILY PRN Tobacco use date assessed: 03/03/24 Fall risk assessment: No Falls in past year Last assessed Fall Risk: 03/03/24 Dental Screening Dental Screen Date: 03/03/24 Did you have a dental visit in the last 12 months?: No Did you have a dental problem in the last 6 months where you did not have access to dental care?: No Was dental information given to patient?: Patient has dentist [facility] HPI Details Patient comes in today for his follow up visit States that he feels okay He denies any headaches or dizziness Denies any chest pains, no SOB but relates (+) recurrent coughing for about a month now States that he have fits of coughing every now and then and this can occur at any time of the day, including at night when he is sleeping Relates that he coughs up some thick whitish to clear phlegm but his phlegm was darker a few weeks ago No nausea/vomiting, no abdominal pain No change in bowel habits noted He had his follow up labs done a few days ago - to discuss his results He is also scheduled for some cardiac procedure (likely stress testing) with car diology tomorrow PFSH Medical History PVD (peripheral vascular disease) Primary osteoarthritis of both hips Type 2 diabetes mellitus with hyperglycemia Obesity (BMI 30-39.9) Benign prostatic hyperplasia Allergic rhinitis GERD without esophagitis Pure hypercholesterolemia Benign essential hypertension Coronary artery disease Surgical History S/P excision of lipoma History of heart artery stent (~01/19/19) Family History Other Family history non-contributory Social History Housing: House Alcohol intake: current Alcohol intake frequency: a few times a month Patient Tobacco Use Status: Former Tobacco user e-Cigarette/Vaping Use: Never Used Second Hand Smoke Exposure: Yes service: No Current occupational status: retired Cognitive needs: No Hearing needs: No Vision needs: Yes (glasses ) Questionnaire PHQ-9 Over the last 2 weeks, how often have you been bothered by any of the following problems? 1. Little interest or pleasure in doing things: not at all 2. Feeling down, depressed, or hopeless: not at all 3. Trouble falling or staying asleep, or sleeping too much: not at all 4. Feeling tired or having little energy: not at all 5. Poor appetite or overeating: not at all 6. Feeling bad about yourself - or that you are a failure or have let yourself or your family down: not at all 7. Trouble concentrating on things, such as reading the newspaper or watching television: not at all 8. Moving or speaking so slowly that other people could have noticed. Or the opposite - being so fidgety or restless that you have been moving around a lot more than usual: not at all 9. Thoughts that you would be better off or of hurting yourself in some way: not at all Total score: 0 Depression Screening Interpretation: Negative Depression Screening Done: Yes 55444 - PHQ-9 Billing: Yes Source: Developed by Drs. Juanjo Franz, Christine B.W. Isacc Hernandez and colleagues, with an educational mary from [employer]. Thrive Questionnaire Date Thrive assessed: 03/03/24 I am a: Patient What is your living situation today?: I have a steady place to live Within the past 12 months, did the food you bought not last and you didn't have the money to get more?: Never true Within the past 12 months, did you worry whether your food would run out before you got money to buy more?: Never true Do you have trouble paying for medicines?: No Do you have trouble getting transportation to medical appointments?: No Do you have trouble paying your heating and electricity bill?: No Do you have trouble taking care of your child, family member or friend?: No Do you have trouble with day-to-day activities such as bathing, preparing meals, shopping, managing finances, etc.?: No Are you currently unemployed and looking for a job?: No Are you interested in more education?: No Please select the resources that you would like help with: None Currently or been in a relationship where the following occur: No concerns reported THRIVE Score: 0 AUDIT C Alcohol Use Questionnaire (AUDIT-C) 1. How often do you have a drink containing alcohol?: Never Total Score: 0 Score Reviewed/Action Taken: Yes WILBERT-7 AMB Questionnaire WILBERT-7 Date WILBERT - 7 assessed: 03/03/24 Feeling nervous, anxious, or on edge: 0 = Not at all Not being able to stop or control worryin = Not at all Worrying too much about different things: 0 = Not at all Trouble relaxin = Not at all Being so restless that it is hard to sit still: 0 = Not at all Becoming easily annoyed or irritable: 0 = Not at all Feeling afraid as if something awful might happen: 0 = Not at all Total WILBERT-7 score (0-4 normal; 5-9 mild; 10-14 moderate; 15-21 severe): 0 Source: Developed by Drs. Juanjo Franz, Isacc Romo and colleagues, with an educational mary from [employer]. Review of Systems Const Denies chills, Denies fatigue, Denies fever(s) and Denies headache(s) ENT Denies dysphagia, Denies dizziness, Denies otalgia, Denies headache(s), Denies neck pain, Denies odynophagia and Denies sore throat Card Denies chest pain, Denies palpitations and Denies dyspnea Resp Denies chest congestion, Reports cough (recurrent; coughs up whitish phlegm at times) and Denies dyspnea GI Denies abdominal pain, Denies constipation, Denies dysphagia, Denies heartburn, Denies diarrhea, Denies nausea, Denies odynophagia and Denies vomiting Denies dysuria, Denies nocturia and Denies urinary frequency Musc Denies back pain and Denies neck pain Skin/Breast Reports lesions ((+) small non-tender nodule over the right lower leg) and Reports rash (on and off over his scalp as well as on his legs recently) Neuro Denies dizziness and Denies headache(s) Endo Denies fatigue and Denies palpitations Physical exam (Primary Care) Vital Signs: Last Vital Signs Pulse 71 03/03/24 10:49 BP 118/58 L 03/03/24 10:49 Pulse Ox 93 03/03/24 10:49 Oxygen Delivery Method Room Air 03/03/24 10:49 BMI result Body Mass Index 31.7 Tobacco/Smoking Status: Tobacco use Status Tobacco use date assessed 03/03/24 03/03/24 10:51 Patient Tobacco Use Status Former Tobacco user 03/03/24 10:51 e-Cigarette/Vaping Use Never Used 03/03/24 10:51 PHQ-9: PHQ-9 Score PHQ-9: Total score 0 03/03/24 11:27 Depression Screening Interpretation: Negative Thrive Assessment: Date of Thrive Assessment Date Thrive assessed 03/03/24 03/03/24 10:51 Currently or been in a relationship where the following occur: No concerns reported Const General: no acute distress and alert HENMT Ears: TM's normal bilaterally and EAC's normal Throat: Yes posterior oropharynx normal and Yes tonsils normal (no TP congestion) Neck Neck: Yes no lymphadenopathy and Yes supple Thyroid: Thyroid normal Resp Auscultation: no rales, rhonchi (occasional) upper bilaterally, no wheezes and no bronchial breath sounds Cardio Rate: regular rate Rhythm: regular rhythm Heart sounds: no murmurs GI Palpation (GI): Soft to palpation and nontender Auscultation: normal bowel sounds General: Yes no CVA tenderness Back/Spine/Pelvis Back: no CVA tenderness Skin Other: (+) non-tender nodular lesion over the anteromedial aspect of the right lower leg Rashes: no rashes (no rash noted over his scalp or his lower legs at present) Extrem General: Yes no clubbing, cyanosis or edema Office Procedures Flu Questionnaire Does the patient have a severe egg allergy?: No Immunizations Fluarix Triv [id number] (PF) 45 mcg (15 mcg x 3)/0.5 mL IM syringe Performing Provider: Hiro Jaimes MD Performing Location: [facility] Documented (not given) by: ASYA Duvall on 03/03/24 10:57 Reason Not Given: Received Previously Results Reviewed Results Reviewed: Laboratory Tests 10/26/23 02/29/24 07:29 07:56 WBC 6.3 Hgb 14.8 Hct 43.7 Plt Count 241 Sodium 141 Potassium 4.0 Creatinine 0.76 Estimated GFR > 60 Fasting Glucose 124 H Hemoglobin A1c % 6.9 H Calcium 9.0 AST 30 ALT 32 Triglycerides 153 H Cholesterol 131 LDL Cholesterol, Calc 69 HDL Cholesterol 32 L Vitamin B12 628 25-OH Vitamin D Total 48.8 TSH 1.41 Ur Specific [place] 1.020 Urine Protein Negative Urine Glucose (UA) Negative Urine Blood Negative Urine Nitrite Negative Ur Leukocyte Esterase Moderate (2+) H Coding Level of Care Code Est Pt Level 4 (37591) Complex EM visit Add On G2211 Diagnoses Coronary artery disease involving [place] coronary artery of [place] heart without angina pectoris I25.10 Coronary Disease-Associated Artery/Lesion type: [place] artery [place] vs. transplanted heart: [place] heart Associated angina: without angina Pure hypercholesterolemia E78.00 Benign essential hypertension I10 Type 2 diabetes mellitus with hyperglycemia, without long-term current use of insulin E11.65 Diabetes mellitus alf insulin use: without joint terminal attack controller use GERD without esophagitis K21.9 Allergic rhinitis, unspecified seasonality, unspecified trigger J30.9 Allergic rhinitis trigger: unspecified Allergic rhinitis seasonality: unspecified Recurrent cough R05.8 Primary osteoarthritis of both hips M16.0 Benign prostatic hyperplasia with urinary frequency N40.1; R35.0 Lower urinary tract symptom presence: symptoms present Lower urinary tract symptom detail: urinary frequency Obesity (BMI 30-39.9) E66.9 Assessment & Plan Assessment & Plan (1) Coronary artery disease: Comment: S/P PCI of LAD at [facility] in 2019 Code(s): I25.10 - Atherosclerotic heart disease of [place] coronary artery without angina pectoris Category: Medical Qualifiers: Coronary Disease-Associated Artery/Lesion type: [place] artery [place] vs. transplanted heart: [place] heart Associated angina: without angina Qualified Code(s): I25.10 - Atherosclerotic heart disease of [place] coronary artery without angina pectoris Plan: Continue Aspirin 81 mg QD and Metoprolol 50 mg 1.5 tablets (75 mg) BID States that he [facility] and activities at least twice a week Patient has been doing well and remains asymptomatic from a cardiac standpoint Patient was seeing Dr. Cali Mackenzie in [place] for his cardiology follow up in the past but has not seen him since 2021 States that he tried reaching out to his office earlier this year and was advised that Dr. Mackenzie is no longer with the practice We referred him then to [facility] Cardiology a few months ago and he was eventually seen a few weeks ago and he will be undergoing repeat echocardiogram as well as vasodilating myocardial perfusion imaging to evaluate for progressive atherosclerosis and stent patency - this is apparently scheduled for tomorrow morning (2) Pure hypercholesterolemia: Code(s): E78.00 - Pure hypercholesterolemia, unspecified Category: Medical Plan: Results of his labs done a few days ago reviewed and discussed with patient Reinforced low cholesterol diet Continue Atorvastatin 40 mg QD - dose was increased by cardiology a few weeks ago Will recheck his labs and fasting lipids in 4 months for follow up (3) Benign essential hypertension: Code(s): I10 - Essential (primary) hypertension Category: Medical Plan: Reinforced low sodium diet - goal is systolic BP of at least 140 mm or less Continue Amlodipine 7.5 mg QD and Metoprolol 50 mg 1.5 tablets (75 mg) BID (4) Type 2 diabetes mellitus with hyperglycemia: Code(s): E11.65 - Type 2 diabetes mellitus with hyperglycemia Category: Medical Qualifiers: Diabetes mellitus joint terminal attack controller insulin use: without alf use Qualified Code(s): E11.65 - Type 2 diabetes mellitus with hyperglycemia Plan: His HgbA1c was unchanged at 6.9% on his labs done a few days ago (he was at 6.2% earlier this year) - goal is HgbA1c of at least <7.0% but ideally <6.5% Reinforced diabetic diet Continue Metformin ER 500 mg Q PM for now but have again advised patient that we may have to increase his dose or start him on additional medications if his HgbA1c does not improve any further over the next few months Will recheck his blood sugar and HgbA1c in 4 months for follow up (5) GERD without esophagitis: Code(s): K21.9 - Gastro-esophageal reflux disease without esophagitis Category: Medical Plan: Dietary restrictions reinforced Continue Omeprazole 20 mg QD (6) Allergic rhinitis: Code(s): J30.9 - Allergic rhinitis, unspecified Category: Medical Qualifiers: Allergic rhinitis trigger: unspecified Allergic rhinitis seasonality: unspecified Qualified Code(s): J30.9 - Allergic rhinitis, unspecified Plan: Continue Fluticasone 50 mcg nasal spray QD PRN and Loratadine 10 mg QD PRN (7) Recurrent cough: Code(s): R05.8 - Other specified cough Category: Medical Plan: Patient is advised that his recent recurrent is likely due to allergies Will send him for chest x-rays for further evaluation (8) Primary osteoarthritis of both hips: Code(s): M16.0 - Bilateral primary osteoarthritis of hip Category: Medical Plan: X-rays of both hips done back in April 2021 revealed (+) mild to moderate degenerative changes in both hips Patient states that his hips have not been bothering him lately Will consider referring him to Orthopedics if his hips start to bother him again (9) Benign prostatic hyperplasia: Code(s): N40.0 - Benign prostatic hyperplasia without lower urinary tract symptoms Category: Medical Qualifiers: Lower urinary tract symptom presence: symptoms present Lower urinary tract symptom detail: urinary frequency Qualified Code(s): N40.1 - Benign prostatic hyperplasia with lower urinary tract symptoms; R35.0 - Frequency of micturition Plan: Continue Alfuzosin ER 10 mg QD Follow up with [facility] as scheduled (10) Obesity (BMI 30-39.9): Code(s): E66.9 - Obesity, unspecified Category: Medical Plan: Reinforced diet/exercise as tolerated/lose weight Plan Follow up in 4 months Orders: Orders Complete Blood Count Auto Diff 4 Months D64.9 - Anemia, unspecified Comprehensive [place]. Panel Fast 4 Months E78.00 - Pure hypercholesterolemia, unspecified TSH reflex Free T4 4 Months E78.00 - Pure hypercholesterolemia, unspecified UA CC w/rflx Micro + Cult 4 Months R30.0 - Dysuria Vitamin D 25-OH Total 4 Months E55.9 - Vitamin D deficiency, unspecified Influenza [id number] Immunization 03/03/24 Z23 - Encounter for immunization XR chest 2V 03/03/24 J98.8 - Other specified respiratory disorders Lipid Panel 4 Months E78.00 - Pure hypercholesterolemia, unspecified Hemoglobin A1c 4 Months E11.9 - Type 2 diabetes mellitus without complications Microalbumin, Random (w Creat) 4 Months E11.9 - Type 2 diabetes mellitus without complications
== END 2024-03-03 11:31 | disposition home or self-care (01) ==
LOC: HO.HMCH 10:44
PROVIDERS: PCP Internal Medicine; Visit Provider Internal Medicine
DX: I25.10 Atherosclerotic heart disease of native coronary artery without angina pectoris (principal); E78.00 Pure hypercholesterolemia, unspecified; I10 Essential (primary) hypertension; E11.65 Type 2 diabetes mellitus with hyperglycemia; K21.9 Gastro-esophageal reflux disease without esophagitis; J30.9 Allergic rhinitis, unspecified; R05.8 Other specified cough; M16.0 Bilateral primary osteoarthritis of hip; N40.1 Benign prostatic hyperplasia with lower urinary tract symptoms; R35.0 Frequency of micturition; E66.9 Obesity, unspecified

== ENCOUNTER → 2024-03-03 10:44 | Outpatient (BNVA) | payer MEDICARE, SELFPAY | PROVIDERS: PCP Internal Medicine; Visit Provider Internal Medicine | DX: I25.10 Atherosclerotic heart disease of native coronary artery without angina pectoris (principal); I10 Essential (primary) hypertension; E78.00 Pure hypercholesterolemia, unspecified; E11.65 Type 2 diabetes mellitus with hyperglycemia; K21.9 Gastro-esophageal reflux disease without esophagitis; J30.9 Allergic rhinitis, unspecified; R05.8 Other specified cough; M16.0 Bilateral primary osteoarthritis of hip; N40.1 Benign prostatic hyperplasia with lower urinary tract symptoms; R35.0 Frequency of micturition | CPT/HCPCS: 90471; 96127; 99212 ==

== ENCOUNTER → 2024-03-04 07:48 | Outpatient (REF) | payer MEDICARE, SELFPAY ==
--- NOTE | 2024-03-04 07:51 | CA_ITS ---
Transthoracic Echocardiogram Patient (Last, First, Middle): Mani Martinez, Gender: Male Date of : 1940 Age: 83 Procedure Date: 03/04/2024 Procedure Type: Transthoracic Echocardiogram Location: OP Height: 167.64 cm Weight: 88.45 kg BSA: 1.98 m2 Heart Rate: bpm BP: 120 / 62 mmHg Research Electrician: IVANA Referring MD: David Garcia MD Symptoms: I25.10 - Atherosclerotic heart disease of [place] coronary artery without... Study Quality: Adequate ECG Rhythm: Sinus Conclusions: - The left ventricular systolic function is normal. The calculated ejection fraction is 57% by biplane method. - There is mild calcification of the aortic valve. - No obvious valvular pathology seen on this study. Findings Left Ventricle Normal left ventricular cavity size. The left ventricular systolic function is normal. The calculated ejection fraction is 57% by biplane method. There is no evidence of regional wall motion abnormalities. Diastolic function is normal for age. There is mild septal asymmetric hypertrophy. Right Ventricle Normal right ventricular cavity size and systolic function. Atria Both atria are normal in size. Aortic Valve There is a normal trileaflet aortic valve. There is mild calcification of the aortic valve. There is no aortic valve stenosis. There is trace (trivial) aortic valve regurgitation. Mitral Valve The mitral valve appears normal. There is no mitral valve regurgitation. There is no mitral valve stenosis. Pulmonic Valve The pulmonic valve is likely normal. Tricuspid Valve There is mild tricuspid valve regurgitation. There is no evidence of pulmonary hypertension. Great Vessels The asc aorta is normal in size. Venous The inferior vena cava was not well visualized. Pericardium/Pleural There is no evidence of pericardial effusion. Prior Study Comparison No prior study available for comparison. Recommendations, Care & Conclusions No obvious valvular pathology seen on this study. Measurements 2D Linear Measurements IVSd: 1.05 0.6-0.9/0.6-1.0 cm LVIDd: 4.90 3.9-5.3/4.2-5.9 cm LVIDd Index: 2.47 2.4-3.2/2.2-3.1 cm/m2 LVIDs: 3.28 2.0-3.6 cm LVPWd: 0.83 0.7-1.1 cm LA Diam: 4.50 2.7-3.8/3.0-4.0 cm LAIDs Index: 2.27 1.5-2.3 cm/m2 LV Mass: 201.63 67-162/88-224 g LV Mass Index: 101.84 43-95/49-115 g/m2 LVOT Diam: 2.20 3.0+(-)1.3 cm 2D Systolic Function EF 4C: 58.10 >55% EF 2C: 57.00 >55% EF BiP: 57.30 >55% Mitral Valve MV Pk E: 0.65 MV PK A: 0.75 MV Decel Time: 223.00 E/A: 0.90 E'Lateral: 5.00 E'Medial: 5.22 E/E' Med: 12.50 E/E' Lat: 13.00 PHT: 65.00 MVA PHT: 3.38 [place]el [place]: 2.92 Aortic Valve AoV Pk Syed: 1.43 AoV Pk Grad: 8.00 CHAD: 2.22 LVOT LVOT Pk Syed: 0.90 LVOT Mn Syed: 0.62 LVOT VTI: 0.21 LVOT Pk Grad: 3.00 LVOT Mn Grad: 2.00 LVOT Diam: 2.20 LVOT Area: 3.80 Diastolic Function MV Pk E: 0.65 MV Pk A: 0.75 E/A: 0.90 E'Medial: 5.22 E/E' Med: 12.50 E' Laterial: 5.00 E/E' Lat: 13.00 Right Ventricle TAPSE (mm): 21.70 TVS' Syed: 14.90 Tricuspid Valve TR Pk Syed: 2.41 TR Pk Grad: 23.00 RA Press: 3.00 RVSP: 26.00 Great Vessels Aorta Sinus of Valsalva: 3.00 2.0-3.5 cm Ao Asc: 3.70 2.1-3.4 cm Pulmonary Veins Pulm Vein S/D 1.50 Pulmonary Valve PV Pk Syed: 0.86 Peak PV Grad: 3.00 Updated in Other Vendor System with Status of Final Sachin Tidwell MD electronically signed on 03/06/2024 10:56:46 AM with status of Final
== END ==
LOC: HO.CARD 07:48
PROVIDERS: PCP Internal Medicine; Visit Provider Internal Medicine Cardiovascular Disease
DX: I25.10 Atherosclerotic heart disease of native coronary artery without angina pectoris (principal)
CPT/HCPCS: 93306

== ENCOUNTER → 2024-03-04 07:51 | Outpatient (BNV) | payer MEDICARE, SELFPAY | PROVIDERS: PCP Internal Medicine; Visit Provider Internal Medicine | DX: I42.2 Other hypertrophic cardiomyopathy (principal); I35.8 Other nonrheumatic aortic valve disorders; I36.1 Nonrheumatic tricuspid (valve) insufficiency | CPT/HCPCS: 93306 ==

== ENCOUNTER → 2024-04-15 08:08 | Outpatient (REF) | payer MEDICARE, SELFPAY ==
--- NOTE | ~2024-04-15 | NM_ITS ---
Lexiscan Myocardial perfusion study Indication: Coronary artery disease Technique: The patient was brought in for a Lexiscan perfusion study on 04/15/2024 and was injected 0.4 mg of Lexiscan intravenously. Within a minute of this injection 30 mCi of sestamibi was given intravenously. Images were obtained using the SPECT gamma camera interlaced with the gating device. Images were obtained in supine position. Resting perfusion study was performed on 04/18/2024. Patient was administered 30 mCi of sestamibi intravenously at rest. Images were then obtained in supine position. Total DLP 84 mGy-cm. Images were processed with the software and compared side to side in short axis, horizontal long axis and vertical long axis views. Findings: Raw aquisition reviewed. Arms by the patient's side. The stress perfusion study showed diminished tracer uptake along the inferolateral wall. There is improvement with CT attenuation correction suggestive of diaphragmatic attenuation artifact. The gated study shows normal LV systolic function with calculated LVEF of 64%. LV cavity is normal in size. The gated study shows normal wall thickening and contraction of segments. Resting study shows no significant perfusion abnormality. Gating at rest reveals normal wall motion with ejection fraction at 65%. The findings are consistent with reversible inferolateral perfusion defect probably from diaphragmatic attenuation artifact. NM/NM sully perf SPECT rest & str Impression: 1. Myocardial perfusion imaging study shows no definitive evidence of ischemia. Reversible inferolateral defect suspected to be from diaphragmatic attenuation artifact. 2. Gated LVEF is 64% during stress and 65% during rest. 3. Transient ischemic dilatation not present. EKG component of the test reported separately. Electronically signed by: Sachin Tidwell MD 04/18/2024 04:09 PM DARÍO
--- NOTE | 2024-04-15 08:11 | CA_ITS ---
Acquisition Time: 2024-04-15 08:17:19 Total Exercise Time: 00:02:00 Test Indications: CAD Medications: SEE H Protocol: LEXISCAN Max HR: 104 BPM 75% of Pred: 138 BPM Max BP: 138/062 mmHG Max Work Load: 1.0 METS Pharmacologic stress test with Lexiscan, while pt marches in the chair, with reports of abdominal discomfort and SOB, no chest discomfort, without any arrythmias, with normotensive response to injection. Nondiagostic EKG for ischemia. In recovery, SOB and abdominal pain resolved. Nuclear images pending. Test reviewed with Dr. Garcia. Referred By: David Garcia Overread By: RICHELLE PANDEY
== END ==
LOC: HO.CARD 08:08
PROVIDERS: PCP Internal Medicine; Visit Provider Internal Medicine Cardiovascular Disease
DX: I25.10 Atherosclerotic heart disease of native coronary artery without angina pectoris (principal)
CPT/HCPCS: 78452; 93017; A9500; J0280; J2785

== ENCOUNTER → 2024-04-15 08:11 | Outpatient (BNV) | payer MEDICARE, SELFPAY | PROVIDERS: PCP Internal Medicine; Visit Provider Nurse Practitioner Family | DX: R06.02 Shortness of breath (principal) | CPT/HCPCS: 78452; 93016; 93018 ==

== ENCOUNTER 2024-07-19 07:33 | Outpatient (REF) | payer MEDICARE, SELFPAY ==
[2024-07-19 10:17] LABS: MANUAL DIFF FLAG NO
[2024-07-19 10:19] LABS: Appearance Urine Clear; Color Urine Yellow; Glucose Urine UA Negative (Negative); Leukocyte Esterase Urine Moderate (2+) (Negative); Nitrite Urine Negative (Negative); UMIC TRIGGER UACC YES; Urine Blood Negative (Negative); Urine Ketones Negative (Negative); Urine Protein Negative (Neg-Trace)
[2024-07-19 10:29] LABS: Basophils Percent Auto 0.6 % (0-2); Eosinophils Absolute Auto 0.1 X10*3/uL (0.0-0.4); Eosinophils Percent Auto 2.2 % (0-4); Hematocrit 42.1 % (42.0-52.0); Hemoglobin 14.6 g/dl (14.0-18.0); Imm Gran Abs Auto 0.02 X10*3/uL (0.00-0.03); Imm Gran Pct Auto 0.3 % (0.0-0.4); Lymphocytes Absolute Auto 0.9 X10*3/uL (1.2-4.9); Lymphocytes Percent Auto 14.1 % (20-40); Mean Corpuscular HGB Conc 34.7 g/dl (31.0-36.0); Mean Corpuscular Hemoglobin 30.3 pg (27.0-33.0); Mean Corpuscular Volume 87.3 fL (80.0-98.0); Mean Platelet Volume 9.8 fL (9.4-12.4); Monocytes Absolute Auto 0.6 X10*3/uL (0.1-1.2); Neutrophils Absolute Auto 4.8 x10*3/uL (2.0-8.3); Neutrophils Percent Auto 73.8 % (45-73); Platelet Count 201 X10*3/uL (160-400); Red Blood Count 4.82 X10*6/uL (4.60-5.80); Red Cell Distribution Width 12.9 % (11.0-16.0); White Blood Count 6.5 X10*3/uL (4.8-10.8)
[2024-07-19 10:30] LABS: Estimated Average Glucose 160 mg/dL; Hemoglobin A1c % 7.2 % (<6.0); Total Hemoglobin (HGBA1C) 3811.2687 umol/L
[2024-07-19 10:44] LABS: Alanine Aminotransferase 48 U/L (0-40); Albumin Level 3.8 g/dL (3.5-5.0); Alkaline Phosphatase 77 U/L (39-117); Anion Gap 9 (12-20); Aspartate Amino Transferase 34 U/L (5-37); Bilirubin Total 0.8 mg/dL (0.0-1.0); Blood Urea Nitrogen 11 mg/dL (9-16); Calcium 8.6 mg/dL (8.4-10.2); Carbon Dioxide 26 mmol/L (22-29); Chloride 110 mmol/L (96-108); Cholesterol 142 mg/dL (<200); Estimated Glomerular Filt Rate > 60; Glucose Fasting 159 mg/dL (60-99); HDL Cholesterol 35 mg/dL (>40); LDL Cholesterol Calculated 75 mg/dL (<100); Potassium 3.9 mmol/L (3.3-5.1); Sodium 141 mmol/L (135-145); Total Protein 6.6 g/dL (6.5-8.0); Triglycerides 164 mg/dL (<150)
[2024-07-19 10:49] LABS: Creatinine Urine 122.95 mg/dL; Microalbum/Creatinine Ratio Ur 4.8 ug/mg cr (<30)
[2024-07-19 11:01] LABS: Bacteria Urine None Seen (None Seen); Hyaline Casts Urine 0-2 /LPF (0-2); RBC Urine 0-2 /HPF (0-2); Squamous Epithelial Cell Urine 0-2 /HPF (0-2); UACC Culture Trigger YES; WBC Urine 0-5 /HPF (0-5)
[2024-07-19 11:03] LABS: TSH reflex Free T4 1.34 uIU/mL (0.32-4.0); Vitamin D 25-OH Total 34.3 ng/mL (>30)
== END 2024-07-19 07:34 | disposition home or self-care (01) ==
LOC: HO.10HDL 07:33
PROVIDERS: Visit Provider Internal Medicine
DX: E78.00 Pure hypercholesterolemia, unspecified (principal); E55.9 Vitamin D deficiency, unspecified; E11.9 Type 2 diabetes mellitus without complications; D64.9 Anemia, unspecified; R30.0 Dysuria
CPT/HCPCS: 36415; 80053; 80061; 81001; 82043; 82306; 82570; 83036; 84443; 85025; 87086

== ENCOUNTER 2024-07-22 11:03 | Outpatient (AMB) | payer MEDICARE, SELFPAY ==
[2024-07-22 11:04] VITALS: BP 112/60; PULSE 72; O2SAT 93; BMI 32.8
--- NOTE | 2024-07-22 11:04 | MHC.PC.OV ---
Vital Signs 07/22/24 11:04 Height 5 ft 6 in Weight 203 lb 4 oz BMI 32.8 BP 112/60 Blood Pressure Location Lt brachial Position Sitting Pulse 72 Pulse Source Pulse Oximeter Pulse Oximetry (%) 93 Oxygen Delivery Method Room Air Intake Visit Reasons: 4mt f/u - see comments Seat Covers Trimmer Required: No Accompanied by: Self / Same As Patient Allergies No Known Allergies Allergy (Verified 07/22/24 11:34) Medication List - Last Reconciled 07/22/24 by Hiro Jaimes MD amlodipine 7.5 mg (1.5 x 5 mg) PO DAILY ammonium lactate 12% 1 appl topical BID PRN aspirin 81 mg PO DAILY atorvastatin 40 mg PO DAILY clopidogrel 75 mg PO DAILY 90 days clotrimazole-betamethasone 1-0.05 % 1 appl topical BID docusate sodium 100 mg PO BID PRN fluticasone propionate 50 mcg/actuation 1 spray intranasal DAILY loratadine 10 mg PO DAILY PRN 90 days metformin ER 500 mg PO QPM 90 days metoprolol tartrate 75 mg (1.5 x 50 mg) PO DAILY 90 days pantoprazole 40 mg PO DAILY 90 days sennosides 17.2 mg (2 x 8.6 mg) PO DAILY PRN Tobacco use date assessed: 03/03/24 Fall risk assessment: No Falls in past year Last assessed Fall Risk: 07/22/24 Dental Screening Dental Screen Date: 07/22/24 Did you have a dental visit in the last 12 months?: No Did you have a dental problem in the last 6 months where you did not have access to dental care?: No Was dental information given to patient?: No [facility] - see comments HPI Details Patient comes in today for follow up of his CAD, HTN, hyperlipidemia, DM and GERD States that he feels okay but reports experiencing recurrent pain again over his right lower back over the past couple of weeks Patient points to his right lower back just above the right iliac crest as the area of his increased pain lately He denies any recent injury or trauma to his right lower back He denies any headaches or dizziness Denies any chest pains, no SOB No nausea/vomiting, no abdominal pain No change in bowel habits noted States that he just needs his Lac-Hydrin lotion Rx refilled today He had his follow up labs done a few days ago - to discuss his results [facility] Medical History PVD (peripheral vascular disease) Primary osteoarthritis of both hips Type 2 diabetes mellitus with hyperglycemia Obesity (BMI 30-39.9) Benign prostatic hyperplasia Allergic rhinitis GERD without esophagitis Pure hypercholesterolemia Benign essential hypertension Coronary artery disease Surgical History S/P excision of lipoma History of heart artery stent (~01/19/19) Family History Other Family history non-contributory Social History Housing: House Alcohol intake: current Alcohol intake frequency: a few times a month Patient Tobacco Use Status: Former Tobacco user e-Cigarette/Vaping Use: Never Used Second Hand Smoke Exposure: Yes service: No Current occupational status: retired Cognitive needs: No Hearing needs: No Vision needs: Yes (glasses ) Questionnaire PHQ-9 Over the last 2 weeks, how often have you been bothered by any of the following problems? 1. Little interest or pleasure in doing things: not at all 2. Feeling down, depressed, or hopeless: not at all 3. Trouble falling or staying asleep, or sleeping too much: not at all 4. Feeling tired or having little energy: not at all 5. Poor appetite or overeating: not at all 6. Feeling bad about yourself - or that you are a failure or have let yourself or your family down: not at all 7. Trouble concentrating on things, such as reading the newspaper or watching television: not at all 8. Moving or speaking so slowly that other people could have noticed. Or the opposite - being so fidgety or restless that you have been moving around a lot more than usual: not at all 9. Thoughts that you would be better off or of hurting yourself in some way: not at all Total score: 0 Depression Screening Interpretation: Negative Depression Screening Done: Yes 67776 - PHQ-9 Billing: Yes Source: Developed by Drs. Juanjo Franz, Christine HernandezIsacc and colleagues, with an educational mary from [employer]. Thrive Questionnaire Date Thrive assessed: 07/22/24 I am a: Patient What is your living situation today?: I have a steady place to live Within the past 12 months, did the food you bought not last and you didn't have the money to get more?: Never true Within the past 12 months, did you worry whether your food would run out before you got money to buy more?: Never true Do you have trouble paying for medicines?: No Do you have trouble getting transportation to medical appointments?: No Do you have trouble paying your heating and electricity bill?: No Do you have trouble taking care of your child, family member or friend?: No Do you have trouble with day-to-day activities such as bathing, preparing meals, shopping, managing finances, etc.?: No Are you currently unemployed and looking for a job?: No Are you interested in more education?: No Please select the resources that you would like help with: None Currently or been in a relationship where the following occur: No concerns reported THRIVE Score: 0 AUDIT C Alcohol Use Questionnaire (AUDIT-C) 1. How often do you have a drink containing alcohol?: Never 3. How often do you have six or more drinks on one occasion?: Never Total Score: 0 Score Reviewed/Action Taken: Yes WILBERT-7 AMB Questionnaire WILBERT-7 Date WILBERT - 7 assessed: 07/22/24 Feeling nervous, anxious, or on edge: 0 = Not at all Not being able to stop or control worryin = Not at all Worrying too much about different things: 0 = Not at all Trouble relaxin = Not at all Being so restless that it is hard to sit still: 0 = Not at all Becoming easily annoyed or irritable: 0 = Not at all Feeling afraid as if something awful might happen: 0 = Not at all Total WILBERT-7 score (0-4 normal; 5-9 mild; 10-14 moderate; 15-21 severe): 0 Source: Developed by Drs. Juanjo Franz, Christine Hernandez, Isacc Hartley and colleagues, with an educational mary from [employer]. Review of Systems Const Denies chills, Denies fatigue, Denies fever(s) and Denies headache(s) ENT Denies dysphagia, Denies dizziness, Denies otalgia, Denies headache(s), Denies neck pain, Denies odynophagia and Denies sore throat Card Denies chest pain, Denies palpitations and Denies dyspnea Resp Denies chest congestion, Denies cough and Denies dyspnea GI Denies abdominal pain, Denies constipation, Denies dysphagia, Denies heartburn, Denies diarrhea, Denies nausea, Denies odynophagia and Denies vomiting Denies difficulty urinating, Denies dysuria, Denies nocturia and Denies urinary frequency Musc Reports back pain (over his right lower back - increased lately), Denies arthralgias and Denies neck pain Skin/Breast Reports dry skin and Denies rash Neuro Denies dizziness and Denies headache(s) Endo Denies fatigue and Denies palpitations Physical exam (Primary Care) Vital Signs: Last Vital Signs Pulse 72 07/22/24 11:04 BP 112/60 07/22/24 11:04 Pulse Ox 93 07/22/24 11:04 Oxygen Delivery Method Room Air 07/22/24 11:04 BMI result Body Mass Index 32.8 Tobacco/Smoking Status: Tobacco use Status Tobacco use date assessed 03/03/24 07/22/24 11:06 Patient Tobacco Use Status Former Tobacco user 07/22/24 11:06 e-Cigarette/Vaping Use Never Used 07/22/24 11:06 PHQ-9: PHQ-9 Score PHQ-9: Total score 0 07/22/24 11:16 Depression Screening Interpretation: Negative Thrive Assessment: Date of Thrive Assessment Date Thrive assessed 07/22/24 07/22/24 11:16 Currently or been in a relationship where the following occur: No concerns reported Const General: no acute distress and alert HENMT Ears: TM's normal bilaterally and EAC's normal Throat: Yes posterior oropharynx normal and Yes tonsils normal (no TP congestion) Neck Neck: Yes supple and No lymphadenopathy Thyroid: Thyroid normal Resp Auscultation: clear to auscultation bilaterally, no crackles, no rales and no wheezes Cardio Rate: regular rate Rhythm: regular rhythm Heart sounds: no murmurs GI Palpation (GI): Soft to palpation and nontender Auscultation: normal bowel sounds General: Yes no CVA tenderness Back/Spine/Pelvis Back: no CVA tenderness Cervical Spine: No Cervical spine tenderness Thoracic/Lumbar Spine: paraspinal muscle tenderness on the right in the lower lumbar (just above the right iliac crest), No thoracic spinal tenderness and No lumbar spinal tenderness Skin Other: (+) non-tender nodular lesion over the anteromedial aspect of the right lower leg Rashes: no rashes (no rash noted over his scalp or his lower legs at present) Extrem General: Yes no clubbing, cyanosis or edema Results Reviewed Results Reviewed: Laboratory Tests 07/19/24 07:41 WBC 6.5 Hgb 14.6 Hct 42.1 Plt Count 201 Sodium 141 Potassium 3.9 Creatinine 0.72 Estimated GFR > 60 Fasting Glucose 159 H Hemoglobin A1c % 7.2 H Calcium 8.6 AST 34 ALT 48 H Triglycerides 164 H Cholesterol 142 LDL Cholesterol, Calc 75 HDL Cholesterol 35 L 25-OH Vitamin D Total 34.3 TSH 1.34 Ur Specific [place] 1.020 Urine Protein Negative Urine Glucose (UA) Negative Urine Blood Negative Urine Nitrite Negative Ur Leukocyte Esterase Moderate (2+) H Microalb/Creat Ratio 4.8 Coding Level of Care Code Est Pt Level 4 (37252) Complex EM visit Add On G2211 Diagnoses Coronary artery disease involving [place] coronary artery of [place] heart without angina pectoris I25.10 Coronary Disease-Associated Artery/Lesion type: [place] artery [place] vs. transplanted heart: [place] heart Associated angina: without angina Pure hypercholesterolemia E78.00 Benign essential hypertension I10 Type 2 diabetes mellitus with hyperglycemia, without long-term current use of insulin E11.65 Diabetes mellitus technician terminal and repeater insulin use: without alf use GERD without esophagitis K21.9 Allergic rhinitis, unspecified seasonality, unspecified trigger J30.9 Allergic rhinitis trigger: unspecified Allergic rhinitis seasonality: unspecified Primary osteoarthritis of both hips M16.0 Acute right-sided low back pain without sciatica M54.50 Chronicity: acute Sciatica presence: without sciatica Benign prostatic hyperplasia with urinary frequency N40.1; R35.0 Lower urinary tract symptom presence: symptoms present Lower urinary tract symptom detail: urinary frequency Dry skin L85.3 Obesity (BMI 30-39.9) E66.9 Additional Codes PHQ-9 - 40648 - PHQ-9 Billing: Yes ([id number]) Assessment & Plan Assessment & Plan (1) Coronary artery disease: Comment: S/P PCI of LAD at [facility] in 2019 Code(s): I25.10 - Atherosclerotic heart disease of [place] coronary artery without angina pectoris Category: Medical Qualifiers: Coronary Disease-Associated Artery/Lesion type: [place] artery [place] vs. transplanted heart: [place] heart Associated angina: without angina Qualified Code(s): I25.10 - Atherosclerotic heart disease of [place] coronary artery without angina pectoris Plan: Continue Aspirin 81 mg QD and Metoprolol 50 mg 1.5 tablets (75 mg) BID States that [facility] and activities at least twice a week Patient remains asymptomatic from a cardiac standpoint Patient was seeing Dr. Cali Mackenzie in [place] for his cardiology follow up in the past but has not seen him since 2021 - he tried reaching out to his office earlier this year and was advised that Dr. Mackenzie is no longer with the practice so we referred him then to [facility] Cardiology (last year - 2023) He underwent repeat echocardiogram as well as myocardial perfusion imaging to evaluate for progressive atherosclerosis and stent patency - his tests all reportedly came out okay Follow up with cardiology as scheduled (2) Pure hypercholesterolemia: Code(s): E78.00 - Pure hypercholesterolemia, unspecified Category: Medical Plan: Results of his labs done a few days ago reviewed and discussed with patient Reinforced low cholesterol diet Continue Atorvastatin 40 mg QD Will recheck his labs and fasting lipids in 4 months for follow up (3) Benign essential hypertension: Code(s): I10 - Essential (primary) hypertension Category: Medical Plan: Reinforced low sodium diet - goal is systolic BP of at least 140 mm or less Continue Amlodipine 7.5 mg QD and Metoprolol 50 mg 1.5 tablets (75 mg) BID (4) Type 2 diabetes mellitus with hyperglycemia: Code(s): E11.65 - Type 2 diabetes mellitus with hyperglycemia Category: Medical Qualifiers: Diabetes mellitus technician terminal and repeater insulin use: without technician terminal and repeater use Qualified Code(s): E11.65 - Type 2 diabetes mellitus with hyperglycemia Plan: His HgbA1c was at 7.2% on his labs done a few days ago (he was previously at 6.9% a few months ago) - goal is HgbA1c of at least <7.0% but ideally <6.5% He has been cautioned that his HgbA1c was at 6.2% at this time last year and this has since gone up by 1% over the past year Reinforced diabetic diet Continue Metformin ER 500 mg Q PM for now but have again advised patient that we may have to increase his dose or start him on additional medications if his HgbA1c does not improve any further over the next few months Will recheck his blood sugar and HgbA1c in 4 months for follow up (5) GERD without esophagitis: Code(s): K21.9 - Gastro-esophageal reflux disease without esophagitis Category: Medical Plan: Dietary restrictions reinforced Continue Omeprazole 20 mg QD (6) Allergic rhinitis: Code(s): J30.9 - Allergic rhinitis, unspecified Category: Medical Qualifiers: Allergic rhinitis trigger: unspecified Allergic rhinitis seasonality: unspecified Qualified Code(s): J30.9 - Allergic rhinitis, unspecified Plan: Continue Fluticasone 50 mcg nasal spray QD PRN and Loratadine 10 mg QD PRN (7) Primary osteoarthritis of both hips: Code(s): M16.0 - Bilateral primary osteoarthritis of hip Category: Medical Plan: X-rays of both hips done back in April 2021 revealed (+) mild to moderate degenerative changes in both hips As he has been experiencing increased pain over his right lower back (just above the right iliac crest) lately, will send him for repeat bilateral hip x-rays as well for follow up Will consider referring him to Orthopedics if his hip osteoarthritis progress (8) Right low back pain: Code(s): M54.50 - Low back pain, unspecified Category: Medical Qualifiers: Chronicity: acute Sciatica presence: without sciatica Qualified Code(s): M54.50 - Low back pain, unspecified Plan: Will send patient for x-rays of the lumbar spine, SI joints and hips for further evaluation (9) Benign prostatic hyperplasia: Code(s): N40.0 - Benign prostatic hyperplasia without lower urinary tract symptoms Category: Medical Qualifiers: Lower urinary tract symptom presence: symptoms present Lower urinary tract symptom detail: urinary frequency Qualified Code(s): N40.1 - Benign prostatic hyperplasia with lower urinary tract symptoms; R35.0 - Frequency of micturition Plan: Continue Alfuzosin ER 10 mg QD Follow up with [facility] as scheduled (10) Dry skin: Code(s): L85.3 - Xerosis cutis Category: Medical Plan: Continue Lac Hydrin 12% lotion BID PRN - Rx refilled (11) Obesity (BMI 30-39.9): Code(s): E66.9 - Obesity, unspecified Category: Medical Plan: Reinforced diet/exercise as tolerated/lose weight - he has gained some more weight since his last visit Plan Follow up in 4 months Orders: Orders XR hip BI w PEL1V Today M25.551 - Pain in right hip, M25.552 - Pain in left hip, M54.50 - Low back pain, unspecified Complete Blood Count Auto Diff 4 Months D64.9 - Anemia, unspecified Hemoglobin A1c 4 Months E11.9 - Type 2 diabetes mellitus without complications Microalbumin, Random (w Creat) 4 Months E11.9 - Type 2 diabetes mellitus without complications UA CC w/rflx Micro + Cult 4 Months R30.0 - Dysuria TSH reflex Free T4 4 Months E78.00 - Pure hypercholesterolemia, unspecified XR lumbar spine 2-3V Today M54.50 - Low back pain, unspecified XR sacroiliac joint 1-2V Today M54.50 - Low back pain, unspecified Comprehensive [place]. Panel Fast 4 Months E78.00 - Pure hypercholesterolemia, unspecified Lipid Panel 4 Months E78.00 - Pure hypercholesterolemia, unspecified Vitamin D 25-OH Total 4 Months E55.9 - Vitamin D deficiency, unspecified Medications: Refilled ammonium lactate 12% 1 appl topical BID PRN 400 grams 0RF dry skin
== END 2024-07-22 11:46 | disposition home or self-care (01) ==
LOC: HO.HMCH 11:03
PROVIDERS: PCP Internal Medicine; Visit Provider Internal Medicine
DX: I25.10 Atherosclerotic heart disease of native coronary artery without angina pectoris (principal); E11.65 Type 2 diabetes mellitus with hyperglycemia; E66.9 Obesity, unspecified; Z68.32 Body mass index [BMI] 32.0-32.9, adult; E78.00 Pure hypercholesterolemia, unspecified; I10 Essential (primary) hypertension; K21.9 Gastro-esophageal reflux disease without esophagitis; J30.9 Allergic rhinitis, unspecified; M16.0 Bilateral primary osteoarthritis of hip; M54.50 Low back pain, unspecified; N40.1 Benign prostatic hyperplasia with lower urinary tract symptoms; R35.0 Frequency of micturition

== ENCOUNTER → 2024-07-22 11:03 | Outpatient (BNVA) | payer MEDICARE, SELFPAY | PROVIDERS: PCP Internal Medicine; Visit Provider Internal Medicine | DX: I25.10 Atherosclerotic heart disease of native coronary artery without angina pectoris (principal); E78.00 Pure hypercholesterolemia, unspecified; I10 Essential (primary) hypertension; E11.65 Type 2 diabetes mellitus with hyperglycemia; K21.9 Gastro-esophageal reflux disease without esophagitis; J30.9 Allergic rhinitis, unspecified; M16.0 Bilateral primary osteoarthritis of hip; M54.50 Low back pain, unspecified; N40.1 Benign prostatic hyperplasia with lower urinary tract symptoms; R35.0 Frequency of micturition; E66.9 Obesity, unspecified; L85.3 Xerosis cutis | CPT/HCPCS: 96127; 99212 ==

== ENCOUNTER 2024-11-21 07:47 | Outpatient (REF) | payer MEDICARE, SELFPAY ==
--- OUTSIDE RECORDS SUMMARY | 2024-11-21 07:48 | XMS_ITS | Clinical Summary ---
Author Organization [facility] Address [address] [place] [address] Care Team Providers Care News Analyst Name Role Phone Unavailable Primary Care Provider Unavailabl e Immunizations Immunization Administration Dates Next Due Influenza, seasonal, injectable, preservative fr ee 02/11/2024 Pfizer Covid-19 Vaccine 12+ 02/11/2024 Social History Tobacco Use Types Packs/Day Years Used Date Smoking Tobacco: Never Assessed Sex and Gender Information Value Date Recorded Sex Assigned at Male 02/11/2024 1:50 PM EDT Legal Sex Male 1:48 PM EDT Gender Identity Male 02/11/2024 1:50 PM EDT Sexual Orientation Don't know 02/11/2024 1: 50 PM EDT Plan of Treatment Health Maintenance Due Date Last Done Comments Depression Screening 1941 Lipid Panel 1941 SDOH Screening 1941 Alcohol/Substance Use Screening 1953 Tobacco Screening 1953 DTaP/Tdap/Td Vaccines (1 - Tdap) 1960 Pneumococcal Vaccine: 50+ Ye ars (1 of 1 - PCV) 07/15/1991 Zoster Vaccines (1 of 2) 07/15/1991 RSV Patients and Pa tients Aged 60 years or older (1 - 1-dose 75+ series) 2016 COVID-19 Vaccine (2 - 2023-2 5 season) 2024 02/11/2024 Influenza Vaccine (#1) 2025 02/11/2024 HIB Vaccines Aged Out No longer eligi ble based on patient's age to complete this topic HPV Vaccines Aged Out No longer eligi ble based on patient's age to complete this topic Hepatitis A Vaccines Aged Out No long er eligible based on patient's age to complete this topic Hepatitis B Vaccines Aged Out No long er eligible based on patient's age to complete this topic IPV Vaccines Aged Out No longer eligi ble based on patient's age to complete this topic Meningococcal B Vaccine Aged Out No l onger eligible based on patient's age to complete this topic Meningococcal Vaccine Aged Out No keegan kaitlin eligible based on patient's age to complete this topic RSV under 20 months Aged Out No longe r eligible based on patient's age to complete this topic Rotavirus Vaccines Aged Out No longer eligible based on patient's age to complete this topic Insurance [facility] MEDICARE SUPPLEMENT
[2024-11-21 10:11] LABS: MANUAL DIFF FLAG NO
[2024-11-21 10:22] LABS: Hematocrit 43.2 % (42.0-52.0); Hemoglobin 14.6 g/dl (14.0-18.0); Imm Gran Abs Auto 0.02 X10*3/uL (0.00-0.03); Imm Gran Pct Auto 0.3 % (0.0-0.4); Lymphocytes Absolute Auto 1.2 X10*3/uL (1.2-4.9); Mean Corpuscular HGB Conc 33.8 g/dl (31.0-36.0); Mean Corpuscular Hemoglobin 29.7 pg (27.0-33.0); Mean Corpuscular Volume 87.8 fL (80.0-98.0); NRBC Abs Auto 0.000 X10*3/uL (0.0-0.012); NRBC Pct Auto 0.0 /100WBC (0.0-0.2); Platelet Count 213 X10*3/uL (160-400); Red Blood Count 4.92 X10*6/uL (4.60-5.80); White Blood Count 7.1 X10*3/uL (4.8-10.8)
[2024-11-21 10:27] LABS: Hemoglobin A1C 217.1234 umol/L; Total Hemoglobin (HGBA1C) 3825.7834 umol/L
[2024-11-21 10:30] LABS: Appearance Urine Clear; Glucose Urine UA Negative (Negative); PH 7.5 (5.0-9.0); Specific Gravity - Urine 1.015 (1.005-1.025); UMIC TRIGGER UACC YES
[2024-11-21 10:40] LABS: Alanine Aminotransferase 31 U/L (0-40); Albumin Level 4.1 g/dL (3.5-5.0); Alkaline Phosphatase 79 U/L (39-117); Anion Gap 11 (12-20); Aspartate Amino Transferase 25 U/L (5-37); Blood Urea Nitrogen 12 mg/dL (9-16); Calcium 8.5 mg/dL (8.4-10.2); Carbon Dioxide 24 mmol/L (22-29); Chloride 111 mmol/L (96-108); Cholesterol 150 mg/dL (<200); Estimated Glomerular Filt Rate > 60; HDL Cholesterol 32 mg/dL (>40); Potassium 4.0 mmol/L (3.3-5.1); Sodium 142 mmol/L (135-145); Total Protein 6.7 g/dL (6.5-8.0); Triglycerides 209 mg/dL (<150)
[2024-11-21 10:46] LABS: UACC Culture Trigger YES
[2024-11-21 11:02] LABS: Microalbum/Creatinine Ratio Ur 8.3 ug/mg cr (<30)
== END 2024-11-21 07:48 | disposition home or self-care (01) ==
LOC: HO.10HDL 07:47
PROVIDERS: Visit Provider Internal Medicine
DX: E78.00 Pure hypercholesterolemia, unspecified (principal); E55.9 Vitamin D deficiency, unspecified; E11.9 Type 2 diabetes mellitus without complications; D64.9 Anemia, unspecified; R30.0 Dysuria
CPT/HCPCS: 36415; 80053; 80061; 81001; 82043; 82306; 82570; 83036; 84443; 85025; 87086

== ENCOUNTER 2024-11-25 10:21 | Outpatient (AMB) | payer MEDICARE, SELFPAY ==
[2024-11-25 10:24] VITALS: BP 118/74; PULSE 63; O2SAT 95; BMI 31.3
--- NOTE | 2024-11-25 10:24 | A.OFFPC_ITS ---
Vital Signs 11/25/24 10:24 Height 5 ft 6 in Weight 194 lb 4 oz BMI 31.3 BP 118/74 Blood Pressure Location Lt brachial Position Sitting Pulse 63 Pulse Source Pulse Oximeter Pulse Oximetry (%) 95 Oxygen Delivery Method Room Air Intake Visit Reasons: [facility] f/u After School Driver Required: No Accompanied by: Self / Same As Patient Allergies No Known Allergies Allergy (Verified 11/25/24 11:12) Medication List - Last Reconciled 11/25/24 by Hiro Jaimes MD amlodipine 7.5 mg (1.5 x 5 mg) PO DAILY ammonium lactate 12% 1 appl topical BID PRN aspirin 81 mg PO DAILY atorvastatin 40 mg PO DAILY clopidogrel 75 mg PO DAILY 90 days clotrimazole-betamethasone 1-0.05 % 1 appl topical BID docusate sodium 100 mg PO BID PRN fluticasone propionate 50 mcg/actuation 1 spray intranasal DAILY loratadine 10 mg PO DAILY PRN 90 days metformin ER 500 mg PO QPM 90 days metoprolol tartrate 75 mg (1.5 x 50 mg) PO DAILY 90 days pantoprazole 40 mg PO DAILY 90 days sennosides 17.2 mg (2 x 8.6 mg) PO DAILY PRN Tobacco use date assessed: 11/25/24 Fall risk assessment: No Falls in past year Last assessed Fall Risk: 11/25/24 Dental Screening Dental Screen Date: 11/25/24 Did you have a dental visit in the last 12 months?: No Did you have a dental problem in the last 6 months where you did not have access to dental care?: No Was dental information given to patient?: No HPI [facility] f/u HPI Details Patient comes in today for follow up of his CAD, HTN, hyperlipidemia, DM and GERD States that he feels okay but is still experiencing recurrent pain over his right lower back and around the right hip area He was sent for x-rays at his last visit but he did not get these done He denies any headaches or dizziness Denies any chest pains, no SOB No nausea/vomiting, no abdominal pain No change in bowel habits noted States that he needs his Lac-Hydrin lotion Rx refilled again today He had his follow up labs done a few days ago - to discuss his results [facility] Medical History PVD (peripheral vascular disease) Primary osteoarthritis of both hips Type 2 diabetes mellitus with hyperglycemia Obesity (BMI 30-39.9) Benign prostatic hyperplasia Allergic rhinitis GERD without esophagitis Pure hypercholesterolemia Benign essential hypertension Coronary artery disease Surgical History S/P excision of lipoma History of heart artery stent (~01/19/19) Family History Other Family history non-contributory Social History Housing: House Alcohol intake: current Alcohol intake frequency: a few times a month Patient Tobacco Use Status: Former Tobacco user e-Cigarette/Vaping Use: Never Used Second Hand Smoke Exposure: Yes service: No Current occupational status: retired Cognitive needs: No Hearing needs: No Vision needs: Yes (glasses ) Questionnaire PHQ-9 Over the last 2 weeks, how often have you been bothered by any of the following problems? 1. Little interest or pleasure in doing things: not at all 2. Feeling down, depressed, or hopeless: not at all 3. Trouble falling or staying asleep, or sleeping too much: not at all 4. Feeling tired or having little energy: more than half the days 5. Poor appetite or overeating: not at all 6. Feeling bad about yourself - or that you are a failure or have let yourself or your family down: not at all 7. Trouble concentrating on things, such as reading the newspaper or watching television: not at all 8. Moving or speaking so slowly that other people could have noticed. Or the opposite - being so fidgety or restless that you have been moving around a lot more than usual: not at all 9. Thoughts that you would be better off or of hurting yourself in some way: not at all Total score: 2 Depression Screening Interpretation: Negative Depression Screening Done: Yes 00262 - PHQ-9 Billing: Yes Source: Developed by Drs. Juanjo Franz, Christine Hernandez, Isacc Hartley and colleagues, with an educational mary from [employer]. Thrive Questionnaire Date Thrive assessed: 11/25/24 I am a: Patient What is your living situation today?: I have a steady place to live Within the past 12 months, did the food you bought not last and you didn't have the money to get more?: Never true Within the past 12 months, did you worry whether your food would run out before you got money to buy more?: Never true Do you have trouble paying for medicines?: Yes Do you have trouble getting transportation to medical appointments?: No Do you have trouble paying your heating and electricity bill?: No Do you have trouble taking care of your child, family member or friend?: No Do you have trouble with day-to-day activities such as bathing, preparing meals, shopping, managing finances, etc.?: No Are you currently unemployed and looking for a job?: Yes Are you interested in more education?: No Please select the resources that you would like help with: None Currently or been in a relationship where the following occur: No concerns reported THRIVE Score: 0 AUDIT C Alcohol Use Questionnaire (AUDIT-C) 1. How often do you have a drink containing alcohol?: Never 3. How often do you have six or more drinks on one occasion?: Never Total Score: 0 Score Reviewed/Action Taken: Yes WILBERT-7 AMB Questionnaire WILBERT-7 Date WILBERT - 7 assessed: 11/25/24 Feeling nervous, anxious, or on edge: 0 = Not at all Not being able to stop or control worryin = Not at all Worrying too much about different things: 0 = Not at all Trouble relaxin = Not at all Being so restless that it is hard to sit still: 0 = Not at all Becoming easily annoyed or irritable: 0 = Not at all Feeling afraid as if something awful might happen: 0 = Not at all Total WILBERT-7 score (0-4 normal; 5-9 mild; 10-14 moderate; 15-21 severe): 0 Source: Developed by Drs. Juanjo Franz, Christine Hernandez, Isacc Hartley and colleagues, with an educational mary from [employer]. Review of Systems Const Denies chills, Denies fatigue, Denies fever(s) and Denies headache(s) ENT Denies dysphagia, Denies dizziness, Denies otalgia, Denies headache(s), Denies neck pain, Denies odynophagia and Denies sore throat Card Denies chest pain, Denies palpitations and Denies dyspnea Resp Denies chest congestion, Denies cough and Denies dyspnea GI Denies abdominal pain, Denies constipation, Denies dysphagia, Denies heartburn, Denies diarrhea, Denies nausea, Denies odynophagia and Denies vomiting Denies difficulty urinating, Denies dysuria, Denies nocturia and Denies urinary frequency Musc Reports back pain (over his right lower back), Denies arthralgias and Denies neck pain Skin/Breast Reports dry skin and Denies rash Neuro Denies dizziness and Denies headache(s) Endo Denies fatigue and Denies palpitations Physical exam (Primary Care) Vital Signs: Last Vital Signs Pulse 63 11/25/24 10:24 BP 118/74 11/25/24 10:24 Pulse Ox 95 11/25/24 10:24 Oxygen Delivery Method Room Air 11/25/24 10:24 BMI result Body Mass Index 31.3 Tobacco/Smoking Status: Tobacco use Status Tobacco use date assessed 11/25/24 11/25/24 10:26 Patient Tobacco Use Status Former Tobacco user 11/25/24 10:26 e-Cigarette/Vaping Use Never Used 11/25/24 10:26 PHQ-9: PHQ-9 Score PHQ-9: Total score 2 11/25/24 10:45 Depression Screening Interpretation: Negative Thrive Assessment: Date of Thrive Assessment Date Thrive assessed 11/25/24 11/25/24 10:45 Currently or been in a relationship where the following occur: No concerns reported Const General: no acute distress and alert HENMT Ears: TM's normal bilaterally and EAC's normal Throat: Yes posterior oropharynx normal and Yes tonsils normal (no TP congestion) Neck Neck: Yes supple and No lymphadenopathy Thyroid: Thyroid normal Resp Auscultation: clear to auscultation bilaterally, no crackles, no rales and no wheezes Cardio Rate: regular rate Rhythm: regular rhythm Heart sounds: no murmurs GI Palpation (GI): Soft to palpation and nontender Auscultation: normal bowel sounds General: Yes no CVA tenderness Back/Spine/Pelvis Back: no CVA tenderness Cervical Spine: No Cervical spine tenderness Thoracic/Lumbar Spine: paraspinal muscle tenderness on the right in the lower lumbar (just above the right iliac crest), No thoracic spinal tenderness and No lumbar spinal tenderness Skin Rashes: no rashes Extrem General: Yes no clubbing, cyanosis or edema Results Reviewed Results Reviewed: Laboratory Tests 11/21/24 07:50 WBC 7.1 Hgb 14.6 Hct 43.2 Plt Count 213 Sodium 142 Potassium 4.0 Creatinine 0.72 Estimated GFR > 60 Fasting Glucose 142 H Hemoglobin A1c % 7.3 H Calcium 8.5 AST 25 ALT 31 Triglycerides 209 H Cholesterol 150 LDL Cholesterol, Calc 77 HDL Cholesterol 32 L 25-OH Vitamin D Total 46.1 TSH 1.48 Ur Specific [place] 1.015 Urine Protein Negative Urine Glucose (UA) Negative Urine Blood Negative Urine Nitrite Negative Ur Leukocyte Esterase Moderate (2+) H Microalb/Creat Ratio 8.3 Coding Level of Care Code Est Pt Level 4 (84307) Complex EM visit Add On G2211 Diagnoses Coronary artery disease involving [place] coronary artery of [place] heart without angina pectoris I25.10 Coronary Disease-Associated Artery/Lesion type: [place] artery [place] vs. transplanted heart: [place] heart Associated angina: without angina Pure hypercholesterolemia E78.00 Benign essential hypertension I10 Type 2 diabetes mellitus with hyperglycemia, without long-term current use of insulin E11.65 Diabetes mellitus intermediate card tender insulin use: without intermediate card tender use GERD without esophagitis K21.9 Allergic rhinitis, unspecified seasonality, unspecified trigger J30.9 Allergic rhinitis trigger: unspecified Allergic rhinitis seasonality: unspecified Primary osteoarthritis of both hips M16.0 Acute right-sided low back pain without sciatica M54.50 Chronicity: acute Sciatica presence: without sciatica Benign prostatic hyperplasia with urinary frequency N40.1; R35.0 Lower urinary tract symptom presence: symptoms present Lower urinary tract symptom detail: urinary frequency Dry skin L85.3 Obesity (BMI 30-39.9) E66.9 Additional Codes PHQ-9 - 83307 - PHQ-9 Billing: Yes ([id number]) Assessment & Plan Assessment & Plan (1) Coronary artery disease: Comment: S/P PCI of LAD at [facility] in 2019 Code(s): I25.10 - Atherosclerotic heart disease of [place] coronary artery without angina pectoris Category: Medical Qualifiers: Coronary Disease-Associated Artery/Lesion type: [place] artery [place] vs. transplanted heart: [place] heart Associated angina: without angina Qualified Code(s): I25.10 - Atherosclerotic heart disease of [place] coronary artery without angina pectoris Plan: Continue Aspirin 81 mg QD and Metoprolol 50 mg 1.5 tablets (75 mg) BID States that [facility] and activities at least twice a week Patient remains asymptomatic from a cardiac standpoint Patient was seeing Dr. Cali Mackenzie in [place] for his cardiology follow up in the past but has not seen him since 2021 - he tried reaching out to his office earlier this year and was advised that Dr. Mackenzie is no longer with the practice so we referred him then to [facility] Cardiology (last year - 2023) He underwent repeat echocardiogram as well as myocardial perfusion imaging to evaluate for progressive atherosclerosis and stent patency - his tests all reportedly came out okay Follow up with cardiology as scheduled (2) Pure hypercholesterolemia: Code(s): E78.00 - Pure hypercholesterolemia, unspecified Category: Medical Plan: Results of his labs done a few days ago reviewed and discussed with patient - his serum TG level has gone up lately Discussed that this is likely in relation to his higher than desired blood sugar level and HgbA1c as discussed below Reinforced low cholesterol diet Continue Atorvastatin 40 mg QD Will recheck his labs and fasting lipids in 4 months for follow up (3) Benign essential hypertension: Code(s): I10 - Essential (primary) hypertension Category: Medical Plan: Reinforced low sodium diet - goal is systolic BP of at least 140 mm or less Continue Amlodipine 7.5 mg QD and Metoprolol 50 mg 1.5 tablets (75 mg) BID (4) Type 2 diabetes mellitus with hyperglycemia: Code(s): E11.65 - Type 2 diabetes mellitus with hyperglycemia Category: Medical Qualifiers: Diabetes mellitus group home insulin use: without intermediate card tender use Qualified Code(s): E11.65 - Type 2 diabetes mellitus with hyperglycemia Plan: His HgbA1c was at 7.3% on his labs done a few days ago (he was previously at 7.2% a few months ago) - goal is HgbA1c of at least <7.0% but ideally <6.5% He has again been cautioned that his HgbA1c was at 6.2% at this time last year and this has since gone up by 1% over the past year Reinforced diabetic diet Continue Metformin ER 500 mg Q PM for now but have again advised patient that we may have to increase his dose or start him on additional medications if his HgbA1c does not improve any further over the next few months Will recheck his blood sugar and HgbA1c in 4 months for follow up (5) GERD without esophagitis: Code(s): K21.9 - Gastro-esophageal reflux disease without esophagitis Category: Medical Plan: Dietary restrictions reinforced Continue Omeprazole 20 mg QD (6) Allergic rhinitis: Code(s): J30.9 - Allergic rhinitis, unspecified Category: Medical Qualifiers: Allergic rhinitis trigger: unspecified Allergic rhinitis seasonality: unspecified Qualified Code(s): J30.9 - Allergic rhinitis, unspecified Plan: Continue Fluticasone 50 mcg nasal spray QD PRN and Loratadine 10 mg QD PRN (7) Primary osteoarthritis of both hips: Code(s): M16.0 - Bilateral primary osteoarthritis of hip Category: Medical Plan: X-rays of both hips done back in April 2021 revealed (+) mild to moderate degenerative changes in both hips As he has been experiencing increased pain over his right lower back (just above the right iliac crest) lately, we sent him for repeat bilateral hip x-rays as well for follow up and he is advised to go and get these done ISAIAH Will consider referring him to Orthopedics if his hip osteoarthritis progress (8) Right low back pain: Code(s): M54.50 - Low back pain, unspecified Category: Medical Qualifiers: Chronicity: acute Sciatica presence: without sciatica Qualified Code(s): M54.50 - Low back pain, unspecified Plan: We sent patient for x-rays of the lumbar spine, SI joints and hips for further evaluation but it appears that he did not get these done Have advised him to try to go and get these done ISAIAH (9) Benign prostatic hyperplasia: Code(s): N40.0 - Benign prostatic hyperplasia without lower urinary tract symptoms Category: Medical Qualifiers: Lower urinary tract symptom presence: symptoms present Lower urinary tract symptom detail: urinary frequency Qualified Code(s): N40.1 - Benign prostatic hyperplasia with lower urinary tract symptoms; R35.0 - Frequency of micturition Plan: Continue Alfuzosin ER 10 mg QD Follow up with [facility] as scheduled (10) Dry skin: Code(s): L85.3 - Xerosis cutis Category: Medical Plan: Continue Lac Hydrin 12% lotion BID PRN - Rx refilled (11) Obesity (BMI 30-39.9): Code(s): E66.9 - Obesity, unspecified Category: Medical Plan: Reinforced diet/exercise as tolerated/lose weight - he has gained some more weight since his last visit Plan Follow up in 4 months Orders: Orders Complete Blood Count Auto Diff 4 Months D64.9 - Anemia, unspecified Comprehensive [place]. Panel Fast 4 Months E78.00 - Pure hypercholesterolemia, unspecified Lipid Panel 4 Months E78.00 - Pure hypercholesterolemia, unspecified Microalbumin, Random (w Creat) 4 Months E11.9 - Type 2 diabetes mellitus without complications Hemoglobin A1c 4 Months E11.9 - Type 2 diabetes mellitus without complications Vitamin B12 and Folate 4 Months E53.8 - Deficiency of other specified B group vitamins Vitamin D 25-OH Total 4 Months E55.9 - Vitamin D deficiency, unspecified TSH reflex Free T4 4 Months E78.00 - Pure hypercholesterolemia, unspecified UA CC w/rflx Micro + Cult 4 Months R30.0 - Dysuria Medications: Refilled ammonium lactate 12% 1 appl topical BID PRN 400 grams 0RF dry skin
--- OUTSIDE RECORDS SUMMARY | 2024-11-25 10:35 | XMS_ITS | Clinical Summary ---
Author Organization [employer] Address [address] [place] [address] Care Team Providers Care Director Of Psychiatry Name Role Phone Unavailable Primary Care Provider [...] to complete this topic Insurance [facility] MEDICARE SUPPLEMENT
--- OUTSIDE RECORDS SUMMARY | 2024-11-25 10:35 | XMS_ITS ---
Author Name [facility] Organization Unknown Care Team Organization Name Specialty Phone Email Start Date End Da te [facility] Termed, PROVIDER Primary Care 03/11/202212/02
== END 2024-11-25 11:27 | disposition home or self-care (01) ==
LOC: HO.HMCH 10:22
PROVIDERS: PCP Internal Medicine; Visit Provider Internal Medicine
DX: I25.10 Atherosclerotic heart disease of native coronary artery without angina pectoris (principal); E11.65 Type 2 diabetes mellitus with hyperglycemia; E66.9 Obesity, unspecified; Z68.31 Body mass index [BMI] 31.0-31.9, adult; E78.00 Pure hypercholesterolemia, unspecified; I10 Essential (primary) hypertension; K21.9 Gastro-esophageal reflux disease without esophagitis; J30.9 Allergic rhinitis, unspecified; M16.0 Bilateral primary osteoarthritis of hip; M54.50 Low back pain, unspecified; N40.1 Benign prostatic hyperplasia with lower urinary tract symptoms

== ENCOUNTER → 2024-11-25 10:21 | Outpatient (BNVA) | payer MEDICARE, SELFPAY | PROVIDERS: PCP Internal Medicine; Visit Provider Internal Medicine | DX: I25.10 Atherosclerotic heart disease of native coronary artery without angina pectoris (principal); I10 Essential (primary) hypertension; E78.5 Hyperlipidemia, unspecified; E11.65 Type 2 diabetes mellitus with hyperglycemia; K21.9 Gastro-esophageal reflux disease without esophagitis; E78.00 Pure hypercholesterolemia, unspecified; J30.9 Allergic rhinitis, unspecified; M16.0 Bilateral primary osteoarthritis of hip; M54.50 Low back pain, unspecified; N40.1 Benign prostatic hyperplasia with lower urinary tract symptoms; R35.0 Frequency of micturition; L85.3 Xerosis cutis; E66.9 Obesity, unspecified; R30.0 Dysuria; Z68.31 Body mass index [BMI] 31.0-31.9, adult | CPT/HCPCS: 96127; 99212 ==

== ENCOUNTER 2024-12-06 09:19 | Outpatient (REF) | payer MEDICARE, SELFPAY ==
--- NOTE | ~2024-12-06 | XR_ITS ---
EXAMINATION: XR SACROILIAC JOINTS CLINICAL INFORMATION: M54.50 - Low back pain, unspecified COMPARISON: None available. TECHNIQUE: 3 views of the sacroiliac joints FINDINGS: No fracture, dislocation, or suspicious bone lesion. Moderate to severe arthrosis of the SI joints present with partial ankylosis of the superior fibrous aspects. No gross erosions evident. There is periarticular sclerosis bilaterally. Findings are suspect for ankylosing spondylitis. Mild degenerative arthritis in the bilateral hip joints noted. No discrete soft tissue abnormality. There is a left common iliac stent graft in place. XR/XR sacroiliac joint 1-2V IMPRESSION: 1. 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 Electronically signed by: Royal Mccarthy MD 12/06/2024 10:26 AM EDT
--- NOTE | ~2024-12-06 | XR_ITS ---
EXAMINATION: XR LUMBOSACRAL SPINE CLINICAL INFORMATION: M54.50 - Low back pain, unspecified COMPARISON: None TECHNIQUE: Three views of the lumbosacral spine. FINDINGS: There is maintained lumbar lordosis. The vertebral heights and alignment is normal. There is moderate ventral bridging osteophytes throughout lumbar spine . No acute fracture or dislocation seen. No lytic or sclerotic process. The disc heights are maintained normal. The soft tissues are normal. XR/XR lumbar spine 2-3V IMPRESSION: Mild ventral spondylosis and bridging osteophytes throughout lumbar spine. No acute fracture, dislocation or lytic process. Electronically signed by: Billy Borja MD 12/06/2024 10:29 AM EDT
--- NOTE | ~2024-12-06 | XR_ITS ---
EXAMINATION: XR BILATERAL HIPS WITH AP PELVIS CLINICAL INFORMATION: M25.551 - Pain in right hip COMPARISON: 04/16/2021. TECHNIQUE: AP view of the pelvis and single views of each hip were obtained. FINDINGS: No fracture, dislocation, or suspicious bone lesion. Normal bone mineralization. There are mild to moderate degenerative changes in both hip joints with minimal loss of of joint space, and small marginal superolateral acetabular osteophytes. Normal femoral head contours bilaterally without evidence of AVN. Partial ankylosis of both SI joints noted with periarticular sclerosis bilaterally. Findings suggest ankylosing spondylitis. There are degenerative changes in the lower lumbar spine. There is a left common iliac artery stent in place. Soft tissues demonstrate vascular calcifications but are otherwise normal. XR/XR hip BI w PEL1V IMPRESSION: 1. Mild to moderate degenerative arthritis in the bilateral hip joints. Electronically signed by: Royal Mccarthy MD 12/06/2024 10:29 AM EDT
--- OUTSIDE RECORDS SUMMARY | 2024-12-06 09:42 | XMS_ITS | Clinical Summary ---
Author Organization [employer] Address [address] [place] [address] Care Team Providers Care Acoustical Tile Carpenters Supervisor Name Role Phone Unavailable Primary Care Provider [...] patient's age to complete this topic Insurance [facility] MEDIC[facility] SUPPLEMENT
== END 2024-12-06 09:20 | disposition home or self-care (01) ==
LOC: HO.XRAY 09:19
PROVIDERS: PCP Internal Medicine; Visit Provider Internal Medicine
DX: M54.50 Low back pain, unspecified (principal); M25.552 Pain in left hip; M25.551 Pain in right hip
CPT/HCPCS: 72100; 72200; 73521

== ENCOUNTER → 2024-12-06 09:26 | Outpatient (BNV) | payer MEDICARE, SELFPAY | PROVIDERS: PCP Internal Medicine; Visit Provider Radiology Diagnostic Radiology | DX: M16.0 Bilateral primary osteoarthritis of hip (principal); M47.816 Spondylosis without myelopathy or radiculopathy, lumbar region; M46.1 Sacroiliitis, not elsewhere classified | CPT/HCPCS: 72100; 72200; 73521 ==

== ENCOUNTER 2025-02-16 09:36 | Outpatient (REF) | payer MEDICARE, SELFPAY ==
--- OUTSIDE RECORDS SUMMARY | 2025-02-09 09:55 | XMS_ITS | Encounter Summary ---
Author Organization [employer] Address [address] [place] [address] Care Team Providers Care Heel Buffer Name Role Phone Unavailable Primary Care Provider Unavailabl e Encounter Details Date Type Department Care Team (Late st Contact Info) Description 02/09/2025 9:55 AM EDT Immunization [facility] [address] [place] [address] Diana Valladares, RN Social History Tobacco Use Types Packs/Day Years Used Date Smoking Tobacco: Never Assessed Sex and Gender Information Value Date Recorded Sex Assigned at Male 02/11/2024 1:50 PM EDT Legal Sex Male 1:48 PM EDT Gender Identity Male 02/11/2024 1:50 PM EDT Sexual Orientation Don't know 02/11/2024 1: 50 PM EDT documented as of this encounter Progress Notes * Diana Valladares RN - 02/09/2025 9:55 AM EDT Subjective Patient ID: Mani Martinez is a 84 y.o. male who presents for COVID19 and Flu Vaccine. Pt here for COVID19 and Flu Vaccine. Per record and patient reporting indicate that patient has no allergies that contraindicate today's vaccinations. Vaccine administered in [facility]. Pt tolerated well, pt willstay for observation for 15minutes post vaccination for observation by nurse. documented in this encounter Plan of Treatment Not on file documented as of this encounter Visit Diagnoses Not on filedocumented in this encounter
--- OUTSIDE RECORDS SUMMARY | 2025-02-16 11:02 | XMS_ITS | Clinical Summary ---
Author Organization [employer] Address [address] [place] [address] Care Team Providers Care Trim Operator Name Role Phone Unavailable Primary Care Provider Unavailabl e Encounters Date Type Department Care Team Description 02/09/2025 9:55 AM EDT Immunization [facility] [address] [place] [address] Diana Valladares RN from Last 3 Months Immunizations Immunization Administration Dates Next Due Influenza, High Dose Seasonal, Preservative Free 02/09/2025 Influenza, seasonal, injectable, preservative fr ee 02/11/2024 Pfizer Covid-19 Vaccine 12+ 02/09/2025, Social History Tobacco Use Types Packs/Day Years [...] Alcohol/Substance Use Screening 1952 Tobacco Screening 1952 Zoster Vaccines (1 of 2) 07/15/1991 RSV Patients and Patients Aged 60 years or older (1 - 1-dose 75+ series) 2016 DTaP/Tdap/Td Vaccines (1 - Tdap) 11/07/2017 11/06/2017 Pneumococcal Vaccine: 50+ Years Completed 10/20/2016, 08/24/2015 COVID-19 Vaccine Completed 02/09/2025, 02/2024, 03/19/2022, Additional history exists Influenza Vaccine Completed 02/09/2025, , 02/08/2023, Additional history exists HIB Vaccines Aged Out No longer eligi [...] patient's age to complete this topic Insurance MEDICARE SUPPLEMENT
== END 2025-02-16 09:37 | disposition home or self-care (01) ==
LOC: HO.LAB 09:36
PROVIDERS: PCP Internal Medicine; Visit Provider Internal Medicine
DX: I25.10 Atherosclerotic heart disease of native coronary artery without angina pectoris (principal); I10 Essential (primary) hypertension; Z95.5 Presence of coronary angioplasty implant and graft; Z79.899 Other long term (current) drug therapy; Z79.82 Long term (current) use of aspirin; Z87.891 Personal history of nicotine dependence
CPT/HCPCS: 93005; 99212

== ENCOUNTER 2025-02-16 09:58 | Outpatient (AMB) | payer MEDICARE, SELFPAY ==
--- NOTE | 2025-02-16 10:10 | MHC.OFFVIS ---
Vital Signs 02/16/25 10:12 Height 5 ft 6 in Weight 194 lb 0.108 oz BMI 31.3 BP 120/78 Blood Pressure Location Lt brachial Position Sitting Pulse 66 Intake Visit Reasons: 1 yr follow up/stress test Intake Note: 1year follow-up with ekg after stress test Allergies No Known Allergies Allergy (Verified 11/25/24 11:12) Medication List - Last Reconciled 02/16/25 by David Garcia MD amlodipine 7.5 mg (1.5 x 5 mg) PO DAILY ammonium lactate 12% 1 appl topical BID PRN aspirin 81 mg PO DAILY atorvastatin 40 mg PO DAILY clopidogrel 75 mg PO DAILY 90 days clotrimazole-betamethasone 1-0.05 % 1 appl topical BID docusate sodium 100 mg PO BID PRN fluticasone propionate 50 mcg/actuation 1 spray intranasal DAILY loratadine 10 mg PO DAILY PRN 90 days metformin ER 500 mg PO QPM 90 days metoprolol tartrate 75 mg (1.5 x 50 mg) PO DAILY 90 days sennosides 17.2 mg (2 x 8.6 mg) PO DAILY PRN HPI Comments Details: Mani comes for follow-up for his coronary artery disease. He had a myocardial perfusion imaging last year which she had shown overall normal perfusion. Since then he said he continues to remain active the back pain and right leg pain which is bothers him for walking. He has no exertional chest pain. Occasionally at rest he feels pushing in his precordial area but this is not related to exertion. Takes all his medications. Last LDL of 77 mg/dL. He said he does not see any other doctors except for you and currently does not have any vascular surgeon following him. He has no lightheadedness, syncope. No heart failure symptoms. No prolonged palpitation irregular heartbeat. [facility] Medical History PVD (peripheral vascular disease) Primary osteoarthritis of both hips Type 2 diabetes mellitus with hyperglycemia Obesity (BMI 30-39.9) Benign prostatic hyperplasia Allergic rhinitis GERD without esophagitis Pure hypercholesterolemia Benign essential hypertension Coronary artery disease Surgical History S/P excision of lipoma History of heart artery stent (~01/19/19) Family History Other Family history non-contributory Social History Housing: House Alcohol intake: current Alcohol intake frequency: a few times a month Patient Tobacco Use Status: Former Tobacco user e-Cigarette/Vaping Use: Never Used Second Hand Smoke Exposure: Yes service: No Current occupational status: retired Cognitive needs: No Hearing needs: No Vision needs: Yes (glasses ) Review of Systems Const Denies chills, Denies fatigue, Denies fever(s), Denies frequent falls, Denies weakness, Denies weight gain and Denies weight loss ENT Denies dizziness Card Denies chest pain, Denies leg edema, Denies lightheadedness, Denies palpitations, Denies dyspnea, Denies dyspnea on exertion, Denies orthopnea and Denies other (loss of consciousness) Resp Denies cough, Denies dyspnea and Denies dyspnea on exertion GI Denies hematochezia and Denies change in stool character Musc Denies abnormal gait, Denies muscle weakness, Denies numbness, Denies radiating pain into limb and Denies tingling Neuro Denies Abnormal speech present, Denies abnormal gait, Denies dizziness, Denies frequent falls, Denies numbness, Denies tingling and Denies weakness Endo Denies fatigue and Denies palpitations Physical Exam Vital Signs: Last Vital Signs Pulse 66 02/16/25 10:12 BP 120/78 02/16/25 10:12 BMI result Body Mass Index 31.3 Const General: cooperative, comfortable, no acute distress, well developed, alert and awake Nutritional Appearance: average body habitus and well nourished Orientation/consciousness: patient oriented x3 Limitations: no limitations HEENT Head: Yes normocephalic and Yes atraumatic Neck Neck: Yes trachea midline, Yes supple and Yes no JVD Carotids: no bruits Resp Effort & Inspection: normal respiratory effort Auscultation: clear to auscultation bilaterally Cardio Jugular venous distension: no JVD Palpation: normal PMI Rate: regular rate Rhythm: regular rhythm Heart sounds: S1 normal heart sound present, S2 normal heart sound present, no click, no gallops, no murmurs and no rubs GI Auscultation: normal bowel sounds Skin General skin exam: no rashes or lesions noted and ecchymosis Neuro General: patient oriented x3 and no focal motor deficits Speech: No Abnormal speech present Extrem General: Yes no clubbing, cyanosis or edema Psych Appearance: grossly normal Office Procedures EKG Details: EKG shows normal sinus rhythm normal EKG [id number], Complete Assessment & Plan Assessment & Plan (1) Coronary artery disease: Comment: S/P PCI of LAD at [facility] in 2019 Code(s): I25.10 - Atherosclerotic heart disease of [place] coronary artery without angina pectoris Category: Medical Qualifiers: Associated angina: without angina Coronary Disease-Associated Artery/Lesion type: [place] artery [place] vs. transplanted heart: [place] heart Qualified Code(s): I25.10 - Atherosclerotic heart disease of [place] coronary artery without angina pectoris Plan: Coronary artery disease with prior remote stenting of LAD for symptoms of exertional angina. There are currently no concerning symptoms. His symptoms of pushing in his precordial area does not appear to be typical for myocardial ischemia. At this point time advised him to continue medical therapy. I am not sure if that has a role for dual antiplatelet therapy at this point time. I would stop his Plavix to reduce bleeding risk. Continue lifelong aspirin therapy. His LDL is not well optimized and therefore I have taken the liberty to add ezetimibe 10 mg to his regimen. Follow-up lipid panel in 2 months time. He is complaining of right leg pain with activity, could be a multitude of factor but vascular insufficiency needs to be ruled out. Will suggest a lower extremity duplex scanning for the same. Continue aggressive blood pressure control, see below. (2) Benign essential hypertension: Code(s): I10 - Essential (primary) hypertension Category: Medical Plan: Blood pressure which is currently optimized on current therapy. Importance of good blood pressure control was discussed. Continue current medical therapy with metoprolol and amlodipine which is working well for him. Low-salt diet was discussed. Stress mitigation strategies was discussed advised to monitor blood pressure intermittently at home and maintain a log. Goal blood pressure less than 130/84. Will follow up in the clinic in 1 year's time, sooner PRN. Thank you for allowing me to partake in his care Orders: Orders Lipid Panel 2 Months I25.10 - Atherosclerotic heart disease of [place] coronary artery without angina pectoris US arterial duplex LE Today I73.9 - Peripheral vascular disease, unspecified Medications: New ezetimibe 10 mg PO DAILY 30 tabs 5RF Discontinued clopidogrel Discontinued Reason: Doctor's Order 75 mg PO DAILY 90 days 90 tabs 3RF Coding Level of Care Code Est Pt Level 4 (05337) Complex EM visit Add On G2211 Diagnoses Coronary artery disease involving [place] coronary artery of [place] heart without angina pectoris I25.10 Associated angina: without angina Coronary Disease-Associated Artery/Lesion type: [place] artery [place] vs. transplanted heart: [place] heart Benign essential hypertension I10 CPT Codes EKG - CPT: 94313-[id number], Complete ([id number])
[2025-02-16 10:12] VITALS: BP 120/78; PULSE 66; BMI 31.3
== END 2025-02-16 10:33 | disposition home or self-care (01) ==
PROVIDERS: PCP Internal Medicine; Visit Provider Internal Medicine Cardiovascular Disease
DX: I25.10 Atherosclerotic heart disease of native coronary artery without angina pectoris (principal); I10 Essential (primary) hypertension
CPT/HCPCS: 93010; 99214; G2211

== ENCOUNTER 2025-03-16 07:22 | Outpatient (REF) | payer MEDICARE, SELFPAY ==
--- OUTSIDE RECORDS SUMMARY | 2025-03-16 07:25 | XMS_ITS | Clinical Summary ---
Author Organization [employer] Address [address] [place] [address] Care Team Providers Care Data Base Administrator Name Role Phone Unavailable Primary Care Provider Unavailabl e Encounters Date Type Department Care Team Description 02/09/2025 9:55 AM EDT Immunization [facility] [address] [place] [address] Diana Valladares RN from Last 3 Months [...] DTaP/Tdap/Td Vaccines (1 - Tdap) 11/07/2017 11/06/2017 COVID-19 Vaccine ( season) 2025 02/09/2025, 02/11/2024, 03/19/2022, Additional history exists Pneumococcal Vaccine: 50+ Years Completed 10/20/2016, 08/24/2015 Influenza Vaccine Completed 02/09/2025, , 02/08/2023, Additional [...] patient's age to complete this topic Insurance [facility] MEDICARE SUPPLEMENT
[2025-03-16 08:21] LABS: MANUAL DIFF FLAG NO
[2025-03-16 08:25] LABS: Hematocrit 42.3 % (42.0-52.0); Hemoglobin 14.6 g/dl (14.0-18.0); Imm Gran Abs Auto 0.03 X10*3/uL (0.00-0.03); Imm Gran Pct Auto 0.4 % (0.0-0.4); Lymphocytes Absolute Auto 1.1 X10*3/uL (1.2-4.9); Mean Corpuscular HGB Conc 34.5 g/dl (31.0-36.0); Mean Corpuscular Hemoglobin 29.7 pg (27.0-33.0); Mean Corpuscular Volume 86.2 fL (80.0-98.0); NRBC Abs Auto 0.000 X10*3/uL (0.0-0.012); NRBC Pct Auto 0.0 /100WBC (0.0-0.2); Platelet Count 217 X10*3/uL (160-400); Red Blood Count 4.91 X10*6/uL (4.60-5.80); White Blood Count 7.5 X10*3/uL (4.8-10.8)
[2025-03-16 08:33] LABS: Appearance Urine Clear; Glucose Urine UA Negative (Negative); PH 6.5 (5.0-9.0); Specific Gravity - Urine 1.020 (1.005-1.025); UMIC TRIGGER UACC YES
[2025-03-16 08:52] LABS: Hemoglobin A1C 151.8452 umol/L
[2025-03-16 08:54] LABS: UACC Culture Trigger YES
[2025-03-16 08:59] LABS: Alanine Aminotransferase 24 U/L (0-40); Albumin Level 4.2 g/dL (3.5-5.0); Alkaline Phosphatase 86 U/L (39-117); Anion Gap 10 (12-20); Aspartate Amino Transferase 29 U/L (5-37); Blood Urea Nitrogen 14 mg/dL (9-16); Calcium 9.1 mg/dL (8.4-10.2); Carbon Dioxide 26 mmol/L (22-29); Chloride 108 mmol/L (96-108); Cholesterol 137 mg/dL (<200); Estimated Glomerular Filt Rate > 60; HDL Cholesterol 35 mg/dL (>40); Potassium 3.8 mmol/L (3.3-5.1); Sodium 140 mmol/L (135-145); Total Protein 6.6 g/dL (6.5-8.0); Triglycerides 221 mg/dL (<150)
[2025-03-16 09:20] LABS: Folate 7.5 ng/mL (> or = 4.0); Vitamin B12 492 pg/mL (200-900)
[2025-03-16 09:22] LABS: Microalbum/Creatinine Ratio Ur 5.8 ug/mg cr (<30)
== END 2025-03-16 07:23 | disposition home or self-care (01) ==
LOC: HO.10HDL 07:22
PROVIDERS: Visit Provider Internal Medicine
DX: E11.9 Type 2 diabetes mellitus without complications (principal); D64.9 Anemia, unspecified; E53.8 Deficiency of other specified B group vitamins; E78.00 Pure hypercholesterolemia, unspecified; E55.9 Vitamin D deficiency, unspecified; R30.0 Dysuria
CPT/HCPCS: 36415; 80053; 80061; 81001; 82043; 82306; 82570; 82607; 82746; 83036; 84443; 85025; 87086

== ENCOUNTER 2025-03-20 12:09 | Outpatient (AMB) | payer MEDICARE, SELFPAY ==
--- NOTE | 2025-03-20 12:37 | MHC.PC.OV ---
Vital Signs 03/20/25 12:38 Height 5 ft 6 in Weight 198 lb 6 oz BMI 32.0 BP 110/50 L Blood Pressure Location Lt brachial Position Sitting Pulse 68 Pulse Source Pulse Oximeter Pulse Oximetry (%) 94 Oxygen Delivery Method Room Air Intake Visit Reasons: annual exam Money Counter Required: No Accompanied by: Self / Same As Patient Allergies No Known Allergies Allergy (Verified 03/20/25 12:54) Medication List - Last Reconciled 03/20/25 by Hiro Jaimes MD amlodipine 7.5 mg (1.5 x 5 mg) PO DAILY ammonium lactate 12% 1 appl topical BID PRN aspirin 81 mg PO DAILY atorvastatin 40 mg PO DAILY clotrimazole-betamethasone 1-0.05 % 1 appl topical BID docusate sodium 100 mg PO BID PRN ezetimibe 10 mg PO DAILY fluticasone propionate 50 mcg/actuation 1 spray intranasal DAILY loratadine 10 mg PO DAILY PRN 90 days metformin ER 500 mg PO QPM 90 days metoprolol tartrate 75 mg (1.5 x 50 mg) PO DAILY 90 days sennosides 17.2 mg (2 x 8.6 mg) PO DAILY PRN Tobacco use date assessed: 03/20/25 Fall risk assessment: No Falls in past year Last assessed Fall Risk: 03/20/25 Dental Screening Dental Screen Date: 03/20/25 Did you have a dental visit in the last 12 months?: Yes Did you have a dental problem in the last 6 months where you did not have access to dental care?: No Was dental information given to patient?: Patient has dentist HPI annual exam HPI Details Patient comes in today for his annual physical examination States that he continues to experience increased pain over his lower back and hips and that his right leg goes numb for a while everynow and then States that he went for x-rays of his lower back and hips a couple of months ago and would like to know how his x-rays came out He denies any headaches or dizziness Denies any chest pains, no increased SOB No nausea/vomiting, no abdominal pain No change in bowel habits noted He denies any acute urinary symptoms He had his follow up labs done a few days ago - to discuss his results At his current age, he no longer needs to continue with routine colon cancer screening [facility] Medical History PVD (peripheral vascular disease) Primary osteoarthritis of both hips Type 2 diabetes mellitus with hyperglycemia Obesity (BMI 30-39.9) Benign prostatic hyperplasia Allergic rhinitis GERD without esophagitis Pure hypercholesterolemia Benign essential hypertension Coronary artery disease Surgical History (Updated 03/20/25 @ 12:58 by Hiro Jaimes MD) History of colonoscopy S/P excision of lipoma History of heart artery stent (~01/19/19) Family History Other Family history non-contributory Social History Housing: House Alcohol intake: current Alcohol intake frequency: a few times a month Patient Tobacco Use Status: Former Tobacco user e-Cigarette/Vaping Use: Never Used Second Hand Smoke Exposure: Yes service: No Current occupational status: retired Cognitive needs: No Hearing needs: No Vision needs: Yes (glasses ) Questionnaire PHQ-9 Over the last 2 weeks, how often have you been bothered by any of the following problems? 1. Little interest or pleasure in doing things: not at all 2. Feeling down, depressed, or hopeless: not at all 3. Trouble falling or staying asleep, or sleeping too much: not at all 4. Feeling tired or having little energy: more than half the days 5. Poor appetite or overeating: not at all 6. Feeling bad about yourself - or that you are a failure or have let yourself or your family down: not at all 7. Trouble concentrating on things, such as reading the newspaper or watching television: not at all 8. Moving or speaking so slowly that other people could have noticed. Or the opposite - being so fidgety or restless that you have been moving around a lot more than usual: not at all 9. Thoughts that you would be better off or of hurting yourself in some way: not at all Total score: 2 Depression Screening Interpretation: Negative Depression Screening Done: Yes 21801 - PHQ-9 Billing: Yes Source: Developed by Drs. Juanjo Franz, Christine Hernandez, Isacc Hartley and colleagues, with an educational mary from [employer]. Thrive Questionnaire Date Thrive assessed: 03/20/25 I am a: Patient What is your living situation today?: I have a steady place to live Within the past 12 months, did the food you bought not last and you didn't have the money to get more?: Never true Within the past 12 months, did you worry whether your food would run out before you got money to buy more?: Never true Do you have trouble paying for medicines?: Yes Do you have trouble getting transportation to medical appointments?: No Do you have trouble paying your heating and electricity bill?: No Do you have trouble taking care of your child, family member or friend?: No Do you have trouble with day-to-day activities such as bathing, preparing meals, shopping, managing finances, etc.?: No Are you currently unemployed and looking for a job?: Yes Are you interested in more education?: No Please select the resources that you would like help with: None Currently or been in a relationship where the following occur: No concerns reported THRIVE Score: 0 AUDIT C Alcohol Use Questionnaire (AUDIT-C) 1. How often do you have a drink containing alcohol?: Never 3. How often do you have six or more drinks on one occasion?: Never Total Score: 0 Score Reviewed/Action Taken: Yes WILBERT-7 AMB Questionnaire WILBERT-7 Date WILBERT - 7 assessed: 03/20/25 Feeling nervous, anxious, or on edge: 0 = Not at all Not being able to stop or control worryin = Not at all Worrying too much about different things: 0 = Not at all Trouble relaxin = Not at all Being so restless that it is hard to sit still: 0 = Not at all Becoming easily annoyed or irritable: 0 = Not at all Feeling afraid as if something awful might happen: 0 = Not at all Total WILBERT-7 score (0-4 normal; 5-9 mild; 10-14 moderate; 15-21 severe): 0 Source: Developed by Drs. Juanjo Franz, Christine Hernandez, Isacc Hartley and colleagues, with an educational mary from [employer]. Review of Systems Const Denies chills, Denies fatigue, Denies fever(s), Denies headache(s), Denies malaise and Denies weakness Eyes Denies blurry vision, Denies change in vision, Denies irritation and Denies itchy eyes ENT Denies dysphagia, Denies dizziness, Denies otalgia, Denies headache(s), Denies nasal congestion, Denies neck pain, Denies odynophagia and Denies sore throat Card Denies rapid heart rate, Denies irregular heart rhythm, Denies palpitations and Denies dyspnea Resp Denies chest congestion, Denies cough, Denies dyspnea and Denies wheezing GI Denies abdominal pain, Denies bloating, Denies constipation, Denies dysphagia, Denies heartburn, Denies diarrhea, Denies nausea, Denies odynophagia and Denies vomiting Denies hematuria, Denies difficulty urinating, Denies dysuria, Denies urinary frequency and Denies urinary urgency Musc Reports back pain (increasing pain over his lower back), Reports arthralgias (in both hips), Denies joint swelling, Denies muscle weakness, Denies neck pain and Reports numbness (on and off in the right leg) Skin/Breast Denies change in pigmentation, Denies lesions, Denies rash and Denies unusual bruising Neuro Denies dizziness, Denies headache(s), Reports numbness (on and off in the right leg), Denies paresthesias and Denies weakness Endo Denies fatigue and Denies palpitations Aller/Immun Denies itchy eyes and Denies wheezing Physical exam (Primary Care) Vital Signs: Last Vital Signs Pulse 68 03/20/25 12:38 BP 110/50 L 03/20/25 12:38 Pulse Ox 94 03/20/25 12:38 Oxygen Delivery Method Room Air 03/20/25 12:38 BMI result Body Mass Index 32.0 Tobacco/Smoking Status: Tobacco use Status Tobacco use date assessed 03/20/25 03/20/25 12:45 Patient Tobacco Use Status Former Tobacco user 03/20/25 12:45 e-Cigarette/Vaping Use Never Used 03/20/25 12:45 PHQ-9: PHQ-9 Score PHQ-9: Total score 2 03/20/25 12:45 Depression Screening Interpretation: Negative Thrive Assessment: Date of Thrive Assessment Date Thrive assessed 03/20/25 03/20/25 12:45 Currently or been in a relationship where the following occur: No concerns reported Const General: no acute distress, alert and awake Orientation/consciousness: patient oriented x3 [facility] Head: Yes normocephalic and Yes atraumatic Ears: external ears normal, TM's normal bilaterally and EAC's normal General nose exam: No nasal discharge present Face and sinus: Yes normal facial exam and Yes sinuses nontender Teeth and gingiva: dentition normal Throat: Yes posterior oropharynx normal and Yes tonsils normal (no TP congestion) Eyes Eyelids: Yes eyelids normal Conjunctivae: conjunctivae normal Pupils: Equal, round and reactive pupils present EOM: EOMs intact bilaterally Neck Neck: Yes no lymphadenopathy and Yes supple Thyroid: Thyroid normal Resp Auscultation: clear to auscultation bilaterally, no rales and no wheezes Cardio Rate: regular rate Rhythm: regular rhythm Heart sounds: no murmurs GI Palpation (GI): Soft to palpation, nontender and No hepatosplenomegaly present Auscultation: normal bowel sounds General: Yes no CVA tenderness Back/Spine/Pelvis Back: no CVA tenderness Thoracic/Lumbar Spine: lumbar spinal tenderness Sacroiliac joints: bilaterally tender to palpation Skin Lesions: no lesions Rashes: no rashes Neuro General: patient oriented x3, moves all extremities, no focal motor deficits and CN's II-XI intact bilaterally Cranial nerves: Yes Equal, round and reactive pupils present Cognition (Neuro): normal cognition Gait exam (Neuro): Normal gait present Extrem General: Yes no clubbing, cyanosis or edema Results Reviewed Results Reviewed: Laboratory Tests 03/16/25 07:24 WBC 7.5 Hgb 14.6 Hct 42.3 Plt Count 217 Sodium 140 Potassium 3.8 Creatinine 0.73 Estimated GFR > 60 Fasting Glucose 176 H Hemoglobin A1c % 7.7 H Calcium 9.1 D AST 29 ALT 24 Triglycerides 221 H Cholesterol 137 LDL Cholesterol, Calc 58 HDL Cholesterol 35 L Vitamin B12 492 25-OH Vitamin D Total 37.5 TSH 1.93 Ur Specific [place] 1.020 Urine Protein Negative Urine Glucose (UA) Negative Urine Blood Negative Urine Nitrite Negative Ur Leukocyte Esterase Moderate (2+) H Microalb/Creat Ratio 5.8 Coding Level of Care Code Est Pt Level 4 (11784) Complex EM visit Add On G2211 Diagnoses Annual physical exam Z00.00 Coronary artery disease involving [place] coronary artery of [place] heart without angina pectoris I25.10 Coronary Disease-Associated Artery/Lesion type: [place] artery [place] vs. transplanted heart: [place] heart Associated angina: without angina Pure hypercholesterolemia E78.00 Benign essential hypertension I10 Type 2 diabetes mellitus with hyperglycemia, without long-term current use of insulin E11.65 Diabetes mellitus procurement clerk insulin use: without procurement clerk use GERD without esophagitis K21.9 Allergic rhinitis, unspecified seasonality, unspecified trigger J30.9 Allergic rhinitis trigger: unspecified Allergic rhinitis seasonality: unspecified Primary osteoarthritis of both hips M16.0 Midline low back pain, unspecified chronicity, unspecified whether sciatica present M54.50 Chronicity: unspecified Back pain laterality: midline Sciatica presence: unspecified whether sciatica present Ankylosing spondylitis of sacral region M45.8 Ankylosing spondylitis location: sacral region Benign prostatic hyperplasia with urinary frequency N40.1; R35.0 Lower urinary tract symptom presence: symptoms present Lower urinary tract symptom detail: urinary frequency Dry skin L85.3 Obesity (BMI 30-39.9) E66.9 Additional Codes PHQ-9 - 21890 - PHQ-9 Billing: Yes ([id number]) Assessment & Plan Assessment & Plan (1) Annual physical exam: Code(s): Z00.00 - Encounter for general adult medical examination without abnormal findings Category: Medical Plan: Results of his labs done a few days ago reviewed and discussed with patient At his current age, he no longer needs to continue with colon cancer screening - he had a normal colonoscopy back in 2006 (2) Coronary artery disease: Comment: S/P PCI of LAD at [facility] in 2019 Code(s): I25.10 - Atherosclerotic heart disease of [place] coronary artery without angina pectoris Category: Medical Qualifiers: Coronary Disease-Associated Artery/Lesion type: [place] artery [place] vs. transplanted heart: [place] heart Associated angina: without angina Qualified Code(s): I25.10 - Atherosclerotic heart disease of [place] coronary artery without angina pectoris Plan: Continue Aspirin 81 mg QD and Metoprolol 50 mg 1.5 tablets (75 mg) BID States that [facility] and activities at least twice a week Patient remains asymptomatic from a cardiac standpoint Repeat echocardiogram and myocardial perfusion imaging were done last year (2023) to evaluate him for any progressive atherosclerosis and stent patency - all of his tests all came out okay Follow up with cardiology as scheduled (3) Pure hypercholesterolemia: Code(s): E78.00 - Pure hypercholesterolemia, unspecified Category: Medical Plan: Patient is advised that his serum triglyceride level is still elevated, likely in relation to his inadequate glycemic control Have advised patient that this should improve with better control of his diabetes Reinforced low cholesterol diet Continue Atorvastatin 40 mg QD Will recheck his labs and fasting lipids in 4 months for follow up (4) Benign essential hypertension: Code(s): I10 - Essential (primary) hypertension Category: Medical Plan: Reinforced low sodium diet - goal is systolic BP of at least 140 mm or less Continue Amlodipine 7.5 mg QD and Metoprolol 50 mg 1.5 tablets (75 mg) BID (5) Type 2 diabetes mellitus with hyperglycemia: Code(s): E11.65 - Type 2 diabetes mellitus with hyperglycemia Category: Medical Qualifiers: Diabetes mellitus procurement clerk insulin use: without half-way use Qualified Code(s): E11.65 - Type 2 diabetes mellitus with hyperglycemia Plan: His HgbA1c has gone up further at 7.7% on his labs done a few days ago (he was previously at 7.3% a few months ago) - goal is HgbA1c of at least <7.0% but ideally <6.5% He has again been cautioned that his HgbA1c was at 6.2% early last year and this has since been going up consistently over the past year and a half Reinforced diabetic diet Continue Metformin ER 500 mg Q PM but will now start him additionally on Januvia 100 mg QD Will recheck his blood sugar and HgbA1c in 4 months for follow up (6) GERD without esophagitis: Code(s): K21.9 - Gastro-esophageal reflux disease without esophagitis Category: Medical Plan: Dietary restrictions reinforced Continue Omeprazole 20 mg QD (7) Allergic rhinitis: Code(s): J30.9 - Allergic rhinitis, unspecified Category: Medical Qualifiers: Allergic rhinitis trigger: unspecified Allergic rhinitis seasonality: unspecified Qualified Code(s): J30.9 - Allergic rhinitis, unspecified Plan: Continue Fluticasone 50 mcg nasal spray QD PRN and Loratadine 10 mg QD PRN (8) Primary osteoarthritis of both hips: Code(s): M16.0 - Bilateral primary osteoarthritis of hip Category: Medical Plan: X-rays of both hips done back in April 2021 revealed (+) mild to moderate degenerative changes in both hips As he has been experiencing increased pain over his right lower back (just above the right iliac crest) lately, we sent him for repeat bilateral hip x-rays, which he got done in December 2024 Repeat x-rays showed (+) mild to moderate degenerative arthritis in the bilateral hip joints Will consider referring him to Orthopedics if his hip symptoms progress but will to try address his low back pain / possible ankylosing spondylitis first at this time (9) Low back pain: Code(s): M54.50 - Low back pain, unspecified Category: Medical Qualifiers: Chronicity: unspecified Back pain laterality: midline Sciatica presence: unspecified whether sciatica present Qualified Code(s): M54.50 - Low back pain, unspecified Plan: Reinforced activity and weight-lifting restrictions X-rays of the lumbar spine and SI joints done in December 2024 revealed (+) mild ventral spondylosis and bridging osteophytes throughout the lumbar spine. There are no acute fracture, dislocation or lytic processes seen Patient is also reporting (+) on and off numbness in his right leg - have advised that this is likely related to his low back pain and/or SI joint pains and if his symptoms persist, he may need an MRI for further evaluation Will refer him to pain management for his increasing low back pain (10) Ankylosing spondylitis: Code(s): M45.9 - Ankylosing spondylitis of unspecified sites in spine Category: Medical Qualifiers: Ankylosing spondylitis location: sacral region Qualified Code(s): M45.8 - Ankylosing spondylitis sacral and sacrococcygeal region Plan: SI joint x-rays done a few months ago in December 2024 showed (+) advanced arthrosis of the SI joints with partial ankylosis bilaterally - findings are suspicious for ankylosing spondylitis Will send patient for some additional labs ISAIAH for further evaluation, including HLA-B27 antigen and ESR and CRP Will also refer him to pain management for further recommendations (11) Benign prostatic hyperplasia: Code(s): N40.0 - Benign prostatic hyperplasia without lower urinary tract symptoms Category: Medical Qualifiers: Lower urinary tract symptom presence: symptoms present Lower urinary tract symptom detail: urinary frequency Qualified Code(s): N40.1 - Benign prostatic hyperplasia with lower urinary tract symptoms; R35.0 - Frequency of micturition Plan: Continue Alfuzosin ER 10 mg QD Follow up with [facility] as scheduled (12) Dry skin: Code(s): L85.3 - Xerosis cutis Category: Medical Plan: Continue Lac Hydrin 12% lotion BID PRN (13) Obesity (BMI 30-39.9): Code(s): E66.9 - Obesity, unspecified Category: Medical Plan: Reinforced diet/exercise as tolerated/lose weight Plan Follow up in 4 months Orders: Orders ETHAN Reflex Titer and Pattern Today M45.9 - Ankylosing spondylitis of unspecified sites in spine Lipid Panel 4 Months E78.00 - Pure hypercholesterolemia, unspecified Microalbumin, Random (w Creat) 4 Months E11.9 - Type 2 diabetes mellitus without complications Comprehensive [place]. Panel Fast 4 Months E78.00 - Pure hypercholesterolemia, unspecified Complete Blood Count Auto Diff 4 Months D64.9 - Anemia, unspecified UA CC w/rflx Micro + Cult 4 Months R30.0 - Dysuria Erythrocyte Sedimentation Rate Today M45.9 - Ankylosing spondylitis of unspecified sites in spine, M79.7 - Fibromyalgia C Reactive Protein Today M45.9 - Ankylosing spondylitis of unspecified sites in spine HLA B27 Today M45.9 - Ankylosing spondylitis of unspecified sites in spine Hemoglobin A1c 4 Months E11.9 - Type 2 diabetes mellitus without complications TSH reflex Free T4 4 Months E78.00 - Pure hypercholesterolemia, unspecified Referrals Pain Management Referral M45.9 - Ankylosing spondylitis of unspecified sites in spine, M54.50 - Low back pain, unspecified Medications: New Januvia (sitagliptin phosphate) 100 mg PO DAILY 90 tabs 1RF 90 days NS E11.65 - Type 2 diabetes mellitus with hyperglycemia
[2025-03-20 12:38] VITALS: BP 110/50; PULSE 68; O2SAT 94; BMI 32.0
== END 2025-03-20 13:24 | disposition home or self-care (01) ==
LOC: HO.HMCH 12:10
PROVIDERS: PCP Internal Medicine; Visit Provider Internal Medicine
DX: Z00.00 Encounter for general adult medical examination without abnormal findings (principal); E11.65 Type 2 diabetes mellitus with hyperglycemia; M45.8 Ankylosing spondylitis sacral and sacrococcygeal region; I25.10 Atherosclerotic heart disease of native coronary artery without angina pectoris; E78.00 Pure hypercholesterolemia, unspecified; I10 Essential (primary) hypertension; K21.9 Gastro-esophageal reflux disease without esophagitis; J30.9 Allergic rhinitis, unspecified; M16.0 Bilateral primary osteoarthritis of hip; M54.50 Low back pain, unspecified; N40.1 Benign prostatic hyperplasia with lower urinary tract symptoms; R35.0 Frequency of micturition

== ENCOUNTER → 2025-03-20 12:09 | Outpatient (BNVA) | payer MEDICARE, SELFPAY | PROVIDERS: PCP Internal Medicine; Visit Provider Internal Medicine | DX: Z00.00 Encounter for general adult medical examination without abnormal findings (principal); M54.50 Low back pain, unspecified; I25.10 Atherosclerotic heart disease of native coronary artery without angina pectoris; E78.00 Pure hypercholesterolemia, unspecified; I10 Essential (primary) hypertension; E11.65 Type 2 diabetes mellitus with hyperglycemia; K21.9 Gastro-esophageal reflux disease without esophagitis; J30.9 Allergic rhinitis, unspecified; M16.0 Bilateral primary osteoarthritis of hip; M45.8 Ankylosing spondylitis sacral and sacrococcygeal region; N40.1 Benign prostatic hyperplasia with lower urinary tract symptoms; R35.0 Frequency of micturition; L85.3 Xerosis cutis; E66.9 Obesity, unspecified; Z68.32 Body mass index [BMI] 32.0-32.9, adult | CPT/HCPCS: 96127; 99397 ==